=== PATIENT | male | born 1940 | race Caucasian/White ===

== ENCOUNTER → 2018-11-15 | Outpatient (CLI) | payer MEDICARE, OTHER ==
--- NOTE | 2018-11-15 16:47 | Diagnostic Imaging Report ---
PROCEDURE: MRI lumbar spine. TECHNIQUE: Multiplanar, multisequence MRI of the lumbar spine was performed without contrast. INDICATION: Chronic low back pain with recent increase in severity. COMPARISON: There is no previous study available at this time for comparison. FINDINGS: Lumbar spinal curvature and alignment are unremarkable. Vertebral body heights and disc spaces are maintained, although there has been an L4-L5 discectomy with posterior fusion at L4-L5 on the left. Conus medullaris is unremarkable at the L1 level. There is mild bulging of the L1-L2 disc. At L2-L3, there is diffuse disc bulging which is eccentric toward the right. This results in mild neuroforaminal stenosis, greater on the right. At L3-L4, there is also disc bulging which is eccentric toward the right resulting in mild left and moderate right neuroforaminal stenosis. At the L4-L5 level, disc bulging and endplate spurring result in moderate bilateral neuroforaminal stenosis. There is mild disc bulging at L5-S1 without significant stenosis. Note is made of dominant cystic structure which is partially visualized in the left retroperitoneum. This may represent dominant renal cyst. IMPRESSION: 1. Multilevel neuroforaminal stenoses, greater on the right, without significant spinal stenosis identified. L4-L5 discectomy and posterior fusion are noted. 2. There is a dominant cystic structure in the left retroperitoneum which may be renal in nature. Clinical correlation would be of use. Consideration could be given to ultrasonography for confirmation. Dictated by: Dictated on workstation # [id number]
== END ==
LOC: RAD 15:24
PROVIDERS: ATTEND Orthopaedic Surgery
DX: M48.061 Spinal stenosis, lumbar region without neurogenic claudication (principal); Z98.1 Arthrodesis status
CPT/HCPCS: 72148

== ENCOUNTER 2019-08-10 02:36 | Inpatient (IN) | payer MEDICARE, OTHER ==
[~2019-08-10] VITALS: Ht 177.8 cm; Wt 90.7 kg
--- OUTSIDE RECORDS SUMMARY | 2019-08-10 02:42 | XMS REPORT ---
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 Nov Active 162675371 Problem Thrombocytopenia, primary D69.49 Aug, A ctive 704190261 Problem Chronic a-fib I48.2 Active 932501 04 Problem Essential hypertension I10 Active 36620651 ALLERGIES Substance Reaction Event Type Date Status Amoxicillin rash Drug Allergy May, Active ENCOUNTERS Encounter Location Date Diagnosis [address] [address] Sep, Other abnormal glucose R73.09 ; Chronic a-fib I48.2 ; Essential hypertension I10 ; Hyperlipidemia E78.5 and 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 [facility] [address] [facility] [id number] [address] [place] [address] Sep, Chronic a-fib I48.2 [facility] [address] [place] [address] Aug, Viral gastroenteritis A08.4 and Chronic fatigue R53.[address] [address] July, [place] [address] [place] [address] July, [address] [address] July, Generalized weakness R53.1 and Toenail fungus B35.1 [facility] [place] [address] [place] [address] Jun, Dark urine R82.998 ; Chronic bilateral low back pain without sciatica M54.5 ; Essential hypertension I10 and Chronic fatigue R53.82 [facility] [address] [id number] [address] [place] [address] May, [facility] [place] [address] [place] [address] May, Generalized weakness R53.1 and Fall, initial encounter [id number].XXXA [facility] [place] [address] [place] [address] May, [facility] [place] [address] [place] [address] May, Follow-up exam Z09 and Generalized weakness R53.1 [facility] [place] [address] [place] [address] May, [facility] [place] [address] [place] [address] May, [facility] [place] [address] [place] [address] Apr, [facility] [place] [address] [place] [address] Apr, [facility] [address] [id number] [address] [place] [address] Apr, [facility] [address] [id number] [address] [place] [address] Feb, [facility] [address] [id number] [address] [place] [phone] Jan, [facility] [address] [facility] [id number] [address] [place] [address] Nov, IMMUNIZATIONS No Known Immunizations SOCIAL HISTORY Never Assessed REASON FOR VISIT Home visit PLAN OF CARE Activity Details Follow Up prn Reason: VITAL SIGNS Height 70 in 2018-05-24 Heart Rate 85 bpm 2018-05-24 Oximetry 97 % 2018-05-24 Blood pressure systolic 120 mmHg 2018-05-24 Blood pressure diastolic 82 mmHg 2018-05-24 MEDICATIONS Medication Instructions Dosage Frequency Start Date End Date Duration S tatus Metoprolol Tartrate 50 MG Orally Twice a day 1 tablet with food 12h 30 days Active Cardura 4 MG Orally Once a day 1 tablet 24h May, 30 day(s) Active Digoxin 125 MCG Orally Once a day 1 tablet 24h 30 da ys Active Clopidogrel Bisulfate 75 MG Orally Once a day 1 tablet 24h 30 day(s) Active Aspirin Adult Low Dose 81 MG Orally Once a day 1 tablet 24h 30 days Active Verapamil HCl 80 MG Orally 2 times a day 1/2 tablet 12h 30 days Active RESULTS No Results PROCEDURES Procedure Date Ordered Result Body Site [facility] VISIT ESTABLISHED PATIENT May 24, 2018 INSTRUCTIONS MEDICATIONS ADMINISTERED No Known Medications MEDICAL (GENERAL) HISTORY Type Description Date Medical History Chronic a-fib Medical History Essential hypertension Medical History Situational depression Medical History Hyperlipidemia Medical History Chronic low back pain withou t sciatica, unspecified back pain laterality Medical History Thrombocytopenia Surgical History tonsillectomy Surgical History lumbar fusion
--- OUTSIDE RECORDS SUMMARY | 2019-08-10 02:42 | XMS REPORT ---
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 Nov Active 521424863 Problem Thrombocytopenia, primary D69.49 13 Aug, 2017 A ctive 985073139 Problem Chronic a-fib I48.2 Active 400916 04 Problem Essential hypertension I10 Active 31137409 ALLERGIES No Information ENCOUNTERS Encounter Location Date Diagnosis [address] [address] Nov, Essential hypertension I10 and Chronic a-fib I48.[address] [address] Oct, Essential hypertension I10 [address] [address] Sep, Other abnormal glucose R73.09 ; Chronic a-fib I48.2 ; Essential hypertension I10 ; Hyperlipidemia E78.5 and 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 [facility] [id number] [place] [address] Sep, Chronic a-fib I48.[address] [address] Aug, Viral gastroenteritis A08.4 and Chronic fatigue R53.82 [place] [id number] [place] [address] July, [facility] [place] [id number] [place] [address] July, [facility] [place] [id number] [place] [address] July, Generalized weakness R53.1 and Toenail fungus B35.1 [facility] [place] [id number] [place] [address] Jun, Dark urine R82.998 ; Chronic bilateral low back pain without sciatica M54.5 ; Essential hypertension I10 and Chronic fatigue R53.82 [facility] [address] [address] May, [facility] [place] [id number] [place] [address] May, Generalized weakness R53.1 and Fall, initial encounter W19.XXXA [facility] [place] [id number] [place] [address] May, [facility] [place] [id number] [place] [address] May, Follow-up exam Z09 and Generalized weakness R53.1 [facility] [place] [id number] [place] [address] May, [facility] [place] [id number] [place] [address] May, [facility] [place] [id number] [place] [address] Apr, [facility] [place] [id number] [place] [address] Apr, [facility] [address] [address] Apr, [facility] [address] [address] Feb, [facility] [address] [address] Jan, [facility] [address] [facility] [id number] [place] [address] Nov, IMMUNIZATIONS No Known Immunizations SOCIAL HISTORY Never Assessed REASON FOR VISIT PLAN OF CARE VITAL SIGNS MEDICATIONS Medication Instructions Dosage Frequency Start Date End Date Duration S marielena Verapamil HCl 80 MG Orally 2 times a day 1/2 tablet 12h 30 days Active RESULTS No Results PROCEDURES No Known procedures INSTRUCTIONS MEDICATIONS ADMINISTERED No Known Medications MEDICAL (GENERAL) HISTORY Type Description Date Medical History Chronic a-fib Medical History Essential hypertension Medical History Situational depression Medical History Hyperlipidemia Medical History Chronic low back pain withou t sciatica, unspecified back pain laterality Medical History Thrombocytopenia Surgical History tonsillectomy Surgical History lumbar fusion
--- OUTSIDE RECORDS SUMMARY | 2019-08-10 02:43 | XMS REPORT | Continuity of Care Document ---
Author Organization Unknown Address Unknown Phone Unavailable Allergies Active Description Code Type Severity Reaction Onset Reported/Identified Relationship to Patient Clinical Status Yes AMOXICILLIN MODERATE DERMATOLOGICAL - CASSIE Yes AMOXICILLIN MODERATE MODERATE Medications Medication Packaging Start Date St op Date Route Dosage Sig OXYCODONE 5MG/APAP 325MG TAB(PERCOCET-5) TAB 10/11/2017 11/10/2017 PRN Q6H HYDRALAZINE TAB 25 MG (APRESOLINE) MG 10/11/2017 10/18/2017 PRN Q4H ALBUTEROL INHALER MDI 8 GM (VENTOLIN HFA) PUFF(S) 10/11/2017 11/10/2017 PRN QID Docusate sodium 100mg oral capsule (COLACE ) MG 10/11/2017 11/10/2017 BID&0800,2000 METOPROLOL TAB 50 MG (LOPRESSOR) MG 10/11/2017 11/10/2017 BID&0800,2000 VERAPAMIL TAB 80 MG (CALAN) MG 10/11/2017 10/18/2017 Q8H&0600,1400,2200 DOXAZOSIN TAB 2 MG (CARDURA) MG 10/11/2017 10/18/2017 Daily&0900 VERAPAMIL TAB 80 MG (CALAN) MG 10/11/2017 11/10/2017 Q8H&0600,1400,2200 Lidocaine adhesive patch 5% (Lidoderm) PATCH 10/12/2017 10/21/2017 Daily&0900 CLOPIDOGREL TAB 75 MG (PLAVIX) MG 10/12/2017 11/10/2017 Daily&0900 DOXAZOSIN TAB 2 MG (CARDURA) MG 10/12/2017 11/10/2017 Daily&0900 ASPIRIN ENTERIC COATED TAB 8 1 MG (BABY ASPIRIN EC) MG 10/12/2017 11/10/2017 Daily&0900 DIGOXIN TAB 0.125 MG (LANOXIN) MG 10/12/2017 10/18/2017 Daily&0900 LACTULOSE SYRUP LIQ 20 GM/30 CC (CHRONULAC SYRUP) GM 10/14/2017 11/12/2017 Daily&0900 VERAPAMIL TAB 80 MG (CALAN) MG 10/14/2017 11/13/2017 Q8H&0600,1400,2200 OXYCODONE 5MG/APAP 325MG TAB(PERCOCET-5) TAB 10/14/2017 11/13/2017 PRN Q6H ALBUTEROL INHALER MDI 8 GM (VENTOLIN HFA) PUFF(S) 10/14/2017 10/24/2017 PRN QID Docusate sodium 100mg oral capsule (COLACE ) MG 10/14/2017 11/13/2017 BID&08,1999 METOPROLOL TAB 50 MG (LOPRESSOR) MG 10/14/2017 11/13/2017 BID&08,1999 CLOPIDOGREL TAB 75 MG (PLAVIX) MG 10/15/2017 11/13/2017 Daily&0900 DOXAZOSIN TAB 2 MG (CARDURA) MG 10/15/2017 11/13/2017 Daily&0900 ASPIRIN ENTERIC COATED TAB 8 1 MG (BABY ASPIRIN EC) MG 10/15/2017 11/13/2017 Daily&0900 DIGOXIN TAB 0.125 MG (LANOXIN) MG 10/15/2017 10/21/2017 Daily&0900 ACETAMINOPHEN ORAL TABLET 325mg(Tylenol) MG 10/17/2017 11/16/2017 PRN Q6H LACTATED RINGERS 500CC IV BAG INJ ml 10/18/2017 10/25/2017 CONTINUOUSEVERY 0 Hour OXYCODONE 5MG/APAP 325MG TAB(PERCOCET-5) TAB 10/18/2017 11/17/2017 PRN Q6H ALBUTEROL INHALER MDI 8 GM (VENTOLIN HFA) PUFF(S) 10/18/2017 10/28/2017 PRN QID Normal SALINE 0.9 % (NS 100cc) (plain bag) ml 10/18/2017 10/18/2017 ONCE&1841 IPRATROPIUM/ALBUTEROL INH SO LN (DUO-NEB INH SOLN) MLS 10/18/2017 10/18/2017 ONCE&1855 DIGOXIN inj 250mcg/cc 2cc amp (Lanoxin) MCG 10/18/2017 10/18/2017 ONCE&1857 NORMAL SALINE 1000CC IV BAG INJ 0.9 % (NS 1000CC IV BAG) ml 10/18/2017 11/02/2017 CONTINUOUSEVERY 0 Hour CLOPIDOGREL TAB 75 MG (PLAVIX) MG 10/18/2017 11/16/2017 Daily&1999 Docusate sodium 100mg oral capsule (COLACE ) MG 10/18/2017 11/17/2017 BID&0800,1999 NORMAL SALINE 250CC IV BAG I NJ 0.9 % (NS 250CC IV BAG) ml 10/18/2017 10/18/2017 ONCE&1999 METOPROLOL TAB 50 MG (LOPRESSOR) MG 10/18/2017 10/25/2017 BID&0800,1999 METOPROLOL TAB 50 MG (LOPRESSOR) MG 10/18/2017 10/18/2017 ONCE&2020 LACTOBACILLUS BULGARIS TAB (LACTINEX BULGA RIS) tab 10/18/2017 10/28/2017 QID&0800,1200,1700,2200 ACETAMINOPHEN ORAL TABLET 325mg(Tylenol) MG 10/18/2017 11/17/2017 PRN EVERY 4 Hour ACETAMINOPHEN SUPPOS SUP 650 MG (TYLENOL) MG 10/18/2017 10/25/2017 PRN Q6H VERAPAMIL TAB 80 MG (CALAN) MG 10/19/2017 11/17/2017 Q8H&0600,1400,2200 METOPROLOL TAB 50 MG (LOPRESSOR) MG 10/19/2017 10/25/2017 BID&0800,1999 Normal SALINE 0.9 % (NS 100cc) (plain bag) ml 10/19/2017 10/25/2017 BID&0800,1999 METOPROLOL TAB 50 MG (LOPRESSOR) MG 10/19/2017 10/19/2017 ONCE&0800,1999 DOXAZOSIN TAB 2 MG (CARDURA) MG 10/19/2017 11/17/2017 Daily&0900 ASPIRIN ENTERIC COATED TAB 8 1 MG (BABY ASPIRIN EC) MG 10/19/2017 11/17/2017 Daily&0900 DIGOXIN TAB 0.25 MG (LANOXIN) MG 10/19/2017 10/25/2017 Daily&0900 DIGOXIN TAB 0.125 MG (LANOXIN) MG 10/19/2017 10/25/2017 Daily&0900 PANTOPRAZOLE VIAL INJ 40 MG (PROTONIX IV) MG 10/19/2017 10/28/2017 Daily&0900 IBUPROFEN TAB 400 MG (MOTRIN) MG 10/19/2017 10/26/2017 PRN Q6H DILTIAZEM BOLUS VIAL INJ 25 MG/5CC (CARDIZEM BOLUS VIAL) MG 10/19/2017 10/19/2017 ONCE&1515 Normal SALINE 0.9 % (NS 100cc) (plain bag) ml 10/19/2017 10/26/2017 CONTINUOUSEVERY 0 Hour NORMAL SALINE 250CC IV BAG I NJ 0.9 % (NS 250CC IV BAG) ml 10/21/2017 10/27/2017 Q12H&1000,2200 OXYCODONE 5MG/APAP 325MG TAB(PERCOCET-5) TAB 10/21/2017 10/28/2017 PRN Q6H ACETAMINOPHEN ORAL TABLET 325mg(Tylenol) MG 10/21/2017 11/20/2017 PRN EVERY 4 Hour IBUPROFEN TAB 400 MG (MOTRIN) MG 10/21/2017 10/28/2017 PRN Q4H VERAPAMIL TAB 80 MG (CALAN) MG 10/21/2017 10/28/2017 Q8H&0600,1400,2200 LACTOBACILLUS BULGARIS TAB (LACTINEX BULGA RIS) tab 10/21/2017 10/31/2017 QID&0800,1200,1700,2200 ALBUTEROL INHALER MDI 8 GM (VENTOLIN HFA) PUFF(S) 10/21/2017 10/31/2017 PRN QID CLOPIDOGREL TAB 75 MG (PLAVIX) MG 10/21/2017 10/27/2017 Daily&1999 Docusate sodium 100mg oral capsule (COLACE ) MG 10/21/2017 11/20/2017 BID&0800,2000 METOPROLOL TAB 50 MG (LOPRESSOR) MG 10/21/2017 10/28/2017 BID&0800,2000 VANCOMYCIN VIAL INJ 750 MG (VANCOCIN VIAL) MG 10/21/2017 10/28/2017 Q12H&1000,2200 DOXAZOSIN TAB 2 MG (CARDURA) MG 10/22/2017 10/28/2017 Daily&0900 ASPIRIN ENTERIC COATED TAB 8 1 MG (BABY ASPIRIN EC) MG 10/22/2017 10/28/2017 Daily&0900 PANTOPRAZOLE TAB 40 MG (PROTONIX) MG 10/22/2017 10/28/2017 Daily&0900 DIGOXIN TAB 0.25 MG (LANOXIN) MG 10/22/2017 10/28/2017 Daily&0900 NORMAL SALINE 250CC IV BAG I NJ 0.9 % (NS 250CC IV BAG) ml 10/22/2017 10/28/2017 BID&1030,2230 METOPROLOL TAB 50 MG (LOPRESSOR) MG 10/26/2017 11/02/2017 BID&0800,2000 CLOPIDOGREL TAB 75 MG (PLAVIX) MG 10/27/2017 11/02/2017 Daily&0900 DIGOXIN TAB 0.125 MG (LANOXIN) MG 10/27/2017 11/02/2017 Daily&0900 VERAPAMIL TAB 80 MG (CALAN) Dose(s) 10/28/2017 11/04/2017 Q8H&0600,1400,2200 NORMAL SALINE 1000CC IV BAG INJ 0.9 % (NS 1000CC IV BAG) ml 04/12/2018 04/12/2018 ONCE&1445 ONDANSETRON VIAL INJ 4 MG/2CC (ZOFRAN 2CC VIAL) MG 04/12/2018 04/12/2018 PRN ONCE THIAMINE VIAL 2CC INJ 100 MG /CC (VIT B1 2CC VIAL) MG 04/12/2018 04/12/2018 ONCE&1730 CEFTRIAXONE PREMIX IV BAG IV 1 GM/50CC (ROCEPHIN PREMIX IV BAG) GM 04/12/2018 04/12/2018 ONCE&1730 ACETAMINOPHEN ORAL TABLET 325mg(Tylenol) MG 04/12/2018 05/12/2018 PRN EVERY 6 Hour MULTIPLE VITAMIN INFUSION IN J (MVI ADULT 2 VIAL KIT) VIALS 04/12/2018 04/12/2018 ONCE&1738 ALPRAZOLAM TAB 0.25 MG (XANAX) MG 04/12/2018 04/22/2018 PRN Q6H HALOPERIDOL VIAL INJ 5 MG/CC (HALDOL 1CC V IAL) MG 04/12/2018 04/19/2018 PRN Q4H CLONIDINE TAB 0.1 MG (CATAPRES) MG 04/12/2018 04/19/2018 PRN Q6H ACETAMINOPHEN SUPPOS SUP 650 MG (TYLENOL) MG 04/12/2018 04/19/2018 PRN Q4H ONDANSETRON VIAL INJ 4 MG/2CC (ZOFRAN 2CC VIAL) MG 04/12/2018 04/19/2018 PRN Q4H CALCIUM CARBONATE TAB 500 MG (TUMS) MG 04/12/2018 04/19/2018 PRN Q6H DIPHENHYDRAMINE CAP 25 MG (BENADRYL) MG 04/12/2018 04/19/2018 PRN Q6H PROMETHAZINE VIAL INJ 25 MG/CC (PHENERGAN VIAL) MG 04/12/2018 04/22/2018 PRN Q6H HYDROCODONE/APAP 5MG/325MG T AB 5 MG/325MG (PATRICK-TAB 5/325) TAB 04/12/2018 04/22/2018 PRN Q6H ALUM/MAG/SIMETH 30CC LIQ (MYLANTA PLUS) cc 04/12/2018 04/22/2018 PRN Q4H LORAZEPAM TAB 1 MG (ATIVAN) MG 04/12/2018 04/12/2018 PRN ONCE Metoprolol IV soln 5mg/5cc vial (Lopressor ) MG 04/12/2018 04/12/2018 ONCE&1923 Docusate sodium 100mg oral capsule (COLACE ) 04/12/2018 05/12/2018 PRN BID METOPROLOL TAB 50 MG (LOPRESSOR) MG 04/12/2018 04/19/2018 BID&0800,2000 VERAPAMIL TAB 80 MG (CALAN) MG 04/12/2018 04/19/2018 BID&0800,2000 LACTULOSE SYRUP LIQ 20 GM/30 CC (CHRONULAC SYRUP) GM 04/12/2018 05/12/2018 BID&0800,2000 MELATONIN TAB 3 MG (MELATONIN) MG 04/12/2018 04/18/2018 QHS&2100 DOXAZOSIN TAB 8 MG (CARDURA) MG 04/13/2018 05/12/2018 Daily&0900 BISACODYL TAB 5 MG (DULCOLAX) MG 04/13/2018 04/19/2018 PRN Daily DULOXETINE CAP 30 MG (CYMBALTA) MG 04/13/2018 04/19/2018 Daily&0900 PANTOPRAZOLE TAB 40 MG (PROTONIX) MG 04/13/2018 04/19/2018 Daily&0900 POLYETHYLENE GLYCOL POWDER U D PWD (MIRALAX 17GM UNIT DOSE PAKS) gm 04/13/2018 04/19/2018 Daily&0900 MultiVits (Thera M Plus) (mu zstjhz-azxk-gpksekr) oral tablet TAB 04/13/2018 05/12/2018 Daily&0900 THIAMINE TAB 100 MG (VITAMIN B1) MG 04/13/2018 04/15/2018 Daily&0900 BISACODYL SUPPOS 10 MG (DULCOLAX SUPPOS) MG 04/13/2018 04/19/2018 PRN Daily CEFTRIAXONE PREMIX IV BAG IV 1 GM/50CC (ROCEPHIN PREMIX IV BAG) GM 04/13/2018 04/19/2018 Daily&0900 MILK OF ELISA LIQ ml 04/13/2018 05/12/2018 PRN Daily DIGOXIN TAB 0.125 MG (LANOXIN) MG 04/13/2018 04/19/2018 Daily&0900 NORMAL SALINE 250CC IV BAG I NJ 0.9 % (NS 250CC IV BAG) ml 04/13/2018 04/19/2018 Q12H&1100,2300 DOXAZOSIN TAB 2 MG (CARDURA) MG 04/13/2018 04/19/2018 Daily&2100 SMZ/TMP DS TAB (SEPTRA DS) (Bactrim DS) TAB 04/14/2018 04/20/2018 BID&0800,2000 MultiVits (Thera M Plus) (mu ucbdpp-zmhg-sxnxmum) oral tablet TAB 04/14/2018 05/13/2018 Daily&0900 OXYCODONE 5MG/APAP 325MG TAB(PERCOCET-5) Dose(s) 04/14/2018 04/21/2018 PRN Q6H Docusate sodium 100mg oral capsule (COLACE ) 04/14/2018 05/14/2018 BID&0800,2000 ACETAMINOPHEN TAB 500 MG (TYLENOL) MG 04/14/2018 05/14/2018 PRN BID CLOPIDOGREL TAB 75 MG (PLAVIX) MG 04/17/2018 04/17/2018 Daily&0900 ASPIRIN ENTERIC COATED TAB 8 1 MG (BABY ASPIRIN EC) MG 04/17/2018 04/17/2018 Daily&0900 CEPHALEXIN CAP 500 MG (KEFLEX) MG 07/24/2018 07/24/2018 ONCE&0150 CITRATE OF ELISA LIQ ml 11/18/2018 11/18/2018 ONCE&1751 ENEMA (FLEET'S) [employer] ADULT APPLICATION 11/18/2018 11/18/2018 ONCE&1751 NORMAL SALINE 1000CC IV BAG INJ 0.9 % (NS 1000CC IV BAG) ml 03/08/2019 03/08/2019 ONCE&1516 THIAMINE VIAL 2CC INJ 100 MG /CC (VIT B1 2CC VIAL) MG 03/09/2019 03/09/2019 ONCE&1644 LORAZEPAM TAB 1 MG (ATIVAN) MG 03/09/2019 03/09/2019 ONCE&1652 ACETAMINOPHEN ORAL TABLET 325mg(Tylenol) MG 03/09/2019 04/08/2019 PRN EVERY 6 Hour LORAZEPAM per Detox Protocol B MG 03/09/2019 03/09/2019 PRN ONCE MULTIPLE VITAMIN INFUSION IN J (MVI ADULT 2 VIAL KIT) VIALS 03/09/2019 03/09/2019 ONCE&1915 Docusate sodium 100mg oral capsule (COLACE ) MG 03/09/2019 04/08/2019 PRN BID PANTOPRAZOLE TAB 40 MG (PROTONIX) MG 03/09/2019 03/16/2019 BID&0800,2000 MELATONIN TAB 3 MG (MELATONIN) MG 03/09/2019 04/07/2019 PRN QHS HALOPERIDOL VIAL INJ 5 MG/CC (HALDOL 1CC V IAL) MG 03/09/2019 03/16/2019 PRN Q4H ALUM/MAG/SIMETH 30CC LIQ (MYLANTA PLUS) cc 03/09/2019 03/19/2019 PRN Q4H CLONIDINE TAB 0.1 MG (CATAPRES) MG 03/09/2019 03/16/2019 PRN Q6H ONDANSETRON VIAL INJ 4 MG/2CC (ZOFRAN 2CC VIAL) MG 03/09/2019 03/16/2019 PRN Q6H CALCIUM CARBONATE TAB 500 MG (TUMS) MG 03/09/2019 03/16/2019 PRN Q6H DIPHENHYDRAMINE CAP 25 MG (BENADRYL) MG 03/09/2019 03/16/2019 PRN Q6H PROMETHAZINE VIAL INJ 25 MG/CC (PHENERGAN VIAL) MG 03/09/2019 03/19/2019 PRN Q6H LORAZEPAM per Detox Protocol B MG 03/10/2019 03/17/2019 PRN EVERY 1 Hour METOPROLOL TAB 50 MG (LOPRESSOR) MG 03/10/2019 03/16/2019 BID&0800,2000 PANTOPRAZOLE TAB 40 MG (PROTONIX) MG 03/10/2019 03/16/2019 BID&0800,2000 POLYETHYLENE GLYCOL POWDER U D PWD (MIRALAX 17GM UNIT DOSE PAKS) gm 03/10/2019 03/16/2019 Daily&0900 VERAPAMIL TAB 80 MG (CALAN) MG 03/10/2019 03/16/2019 Daily&0900 THIAMINE TAB 100 MG (VITAMIN B1) MG 03/10/2019 03/12/2019 Daily&0900 BISACODYL SUPPOS 10 MG (DULCOLAX SUPPOS) MG 03/10/2019 03/16/2019 PRN Daily Normal SALINE 0.9 % (NS 100cc) (plain bag) ml 03/10/2019 03/13/2019 CONTINUOUSEVERY 0 Hour GABAPENTIN CAP 300 MG (NEURONTIN) Dose(s) 03/10/2019 03/10/2019 ONCE&1128 NORMAL SALINE 1000CC IV BAG INJ 0.9 % (NS 1000CC IV BAG) ml 03/10/2019 03/25/2019 CONTINUOUSEVERY 0 Hour LORAZEPAM per Detox Protocol B MG 03/10/2019 03/13/2019 Q6H&0600,1200,1800,2359 MULTIPLE VITAMIN INFUSION IN J (MVI ADULT 2 VIAL KIT) VIALS 03/10/2019 03/16/2019 QPM&2000 ENOXAPARIN SYRINGE INJ 40 MG (LOVENOX SYRI NGE) MG 03/10/2019 03/19/2019 QHS&2100 CLOPIDOGREL TAB 75 MG (PLAVIX) MG 03/11/2019 03/16/2019 Daily&0900 LACTOBACILLUS BULGARIS TAB (LACTINEX BULGA RIS) 03/12/2019 03/22/2019 QID&0800,1200,1700,2200 APIXABAN TAB 5 MG (ELIQUIS) MG 03/13/2019 03/19/2019 BID&0800,2000 AMLODIPINE TAB 5 MG (NORVASC) MG 03/13/2019 03/13/2019 ONCE&1006 ACETAMINOPHEN ORAL TABLET 325mg(Tylenol) MG 03/13/2019 04/12/2019 PRN EVERY 6 Hour ALUM/MAG/SIMETH 30CC LIQ (MYLANTA PLUS) cc 03/13/2019 03/23/2019 PRN Q4H POLYETHYLENE GLYCOL POWDER U D PWD (MIRALAX 17GM UNIT DOSE PAKS) gm 03/13/2019 03/23/2019 PRN Q3H CALMOSEPTINE OINT TUBE (RISAMINE OINT) hudson 03/13/2019 03/20/2019 PRN QID LOPERAMIDE CAP 2 MG (IMMODIUM) MG 03/13/2019 03/20/2019 PRN QID METOPROLOL TAB 50 MG (LOPRESSOR) MG 03/13/2019 04/12/2019 BID&0800,2000 GABAPENTIN CAP 300 MG (NEURONTIN) MG 03/13/2019 04/11/2019 QPM&2000 LACTULOSE SYRUP LIQ 20 GM/30 CC (CHRONULAC SYRUP) GM 03/13/2019 04/12/2019 BID&0800,2000 APIXABAN TAB 5 MG (ELIQUIS) MG 03/13/2019 04/12/2019 BID&0800,2000 CLOPIDOGREL TAB 75 MG (PLAVIX) MG 03/14/2019 04/12/2019 QAM&0800 VERAPAMIL TAB 80 MG (CALAN) MG 03/14/2019 04/12/2019 QAM&0800 DIGOXIN TAB 0.125 MG (LANOXIN) MCG 03/14/2019 04/12/2019 QAM&0800 BISACODYL SUPPOS 10 MG (DULCOLAX SUPPOS) MG 03/14/2019 03/20/2019 PRN Daily TAMSULOSIN CAP 0.4 MG (FLOMAX) MG 03/14/2019 04/12/2019 QPM&1800 VENLAFAXINE XR CAP 75 MG (EFFEXOR XR) MG 03/15/2019 04/13/2019 Daily&0900 FOLIC ACID TAB 1 MG MG 03/15/2019 04/13/2019 Daily&0900 Jyfqypmo-gwlb-fcy-folic acid ) tab,CHEWable (Centrum) TAB 03/15/2019 04/13/2019 Daily&0900 MIRTAZAPINE TAB 15 MG (REMERON) MG 03/15/2019 04/13/2019 QHS&2100 AMLODIPINE TAB 5 MG (NORVASC) MG 03/16/2019 04/14/2019 Daily&0900 VENLAFAXINE XR CAP 75 MG (EFFEXOR XR) MG 03/17/2019 04/15/2019 Daily&0900 FINASTERIDE TAB 5 MG (PROSCAR) MG 03/18/2019 03/18/2019 ONCE&1021 Flu vacc [id number] 6mos up(P F)) IM syringe QUAD (Fluarix) ML 03/18/2019 03/18/2019 ONCE&205 PNEUMONIA VACCINE INJ (PREVNAR-13) ml 03/18/2019 03/18/2019 ONCE&2049 MELATONIN TAB 3 MG (MELATONIN) MG 03/18/2019 04/16/2019 QHS&2100 FINASTERIDE TAB 5 MG (PROSCAR) MG 03/19/2019 04/17/2019 Daily&0900 APIXABAN TAB 5 MG (ELIQUIS) MG 03/21/2019 04/20/2019 BID&0800,2000 Metoprolol IV soln 5mg/5cc vial (Lopressor ) MG 08/09/2019 08/09/2019 ONCE&1047 NORMAL SALINE 1000CC IV BAG INJ 0.9 % (NS 1000CC IV BAG) ml 08/09/2019 08/09/2019 ONCE&1047 METOPROLOL TAB 25 MG (LOPRESSOR) MG 08/09/2019 08/09/2019 ONCE&1113 IPRATROPIUM/ALBUTEROL INH SO LN (DUO-NEB INH SOLN) MLS 08/09/2019 08/09/2019 ONCE&1113 DIGOXIN TAB 125 MCG (LANOXIN) MCG 08/09/2019 08/09/2019 ONCE&1113 Problems Date Dx Coded Attending Type Code Diagnosis Diagnosed By 10/17/2017 Phyllis Leiva 285.1 ACUTE POSTHEMORRHAGIC ANEMIA 10/17/2017 Phyllis Leiva 338.2 CHRONIC PAIN 10/17/2017 Phyllis Leiva 401.0 10/17/2017 Phyllis Leiva 427.32 10/17/2017 Phyllis Leiva 585.9 CHRONIC KIDNEY DISEASE, UNSPECIFIED 10/17/2017 Phyllis Leiva 719.45 PAIN IN JOINT INVOLVING PELVIC REGION AND THIGH 10/17/2017 Phyllis Leiva A 780.79 10/17/2017 Phyllis Leiva D62 ACUTE POSTHEMORRHAGIC ANEMIA 10/17/2017 Phyllis Leiva G89.29 OTHER CHRONIC PAIN 10/17/2017 Phyllis Leiva I10 ESSENTIAL (PRIMARY) HYPERTENSION 10/17/2017 Phyllis Leiva I48.2 CHRONIC ATRIAL FIBRILLATION 10/17/2017 Phyllis Leiva M25.552 PAIN IN LEFT HIP 10/17/2017 Leiva, Phyllis W N18.9 CHRONIC KIDNEY DISEASE, UNSPECIFIED 10/17/2017 Phyllis Leiva A R53.1 WEAKNESS 10/17/2017 Phyllis Leiva W R53.81 OTHER MALAISE 10/17/2017 Phyllis Leiva W V12.55 PERSONAL HISTORY OF PULMONARY EMBOLISM 10/17/2017 Phyllis Leiva W V45.4 10/17/2017 Phyllis Leiav W 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 10/17/2017 Phyllis Leiva W Z98.1 ARTHRODESIS STATUS 10/18/2017 Phyllis Leiva W 486 PNEUMONIA, ORGANISM UNSPECIFIED 10/18/2017 Phyllis Leiva W I48.9 UNSPECIFIED ATRIAL FIBRILLATION AND ATRIAL FLUTTER 10/18/2017 Phyllis Leiva W J18.9 PNEUMONIA, UNSPECIFIED ORGANISM 10/19/2017 Phyllis Leiva W 486 PNEUMONIA, ORGANISM UNSPECIFIED 10/19/2017 Phyllis Leiva W I48.9 UNSPECIFIED ATRIAL FIBRILLATION AND ATRIAL FLUTTER 10/19/2017 Phyllis Leiva W J18.9 PNEUMONIA, UNSPECIFIED ORGANISM 10/21/2017 Yasmine Leivai W 041.12 10/21/2017 Cali Phyllis W 276.51 10/21/2017 Cali Phyllis W 303.90 10/21/2017 Cali Phyllis W 338.2 CHRONIC PAIN 10/21/2017 Cali Phyllis W 401.0 10/21/2017 Cali Phyllis W 427.31 10/21/2017 Cali Phyllis W 486 PNEUMONIA, ORGANISM UNSPECIFIED 10/21/2017 Cali Phyllis W 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 OBSTRUCTION AND OTHER LOWER URINARY TRACT SYMPTOMS (LUTS) 10/21/2017 Phyllis Leiva A 771.83 10/21/2017 Cali Phyllis W 780.60 10/21/2017 Cali Phyllis W 780.79 OTHER MALAISE AND FATIGUE 10/21/2017 Yasmine Leivai W B95.62 10/21/2017 Cali Phyllis W E86.0 DEHYDRATION 10/21/2017 Cali Phyllis W F10.20 ALCOHOL DEPENDENCE, UNCOMPLICATED 10/21/2017 Yasmine Leivai W G89.29 OTHER CHRONIC PAIN 10/21/2017 Leiva, Phyllis W I10 ESSENTIAL (PRIMARY) HYPERTENSION 10/21/2017 Phyllis Leiva W I48.9 UNSPECIFIED ATRIAL FIBRILLATION AND ATRIAL FLUTTER 10/21/2017 Phyllis Leiva W I48.91 UNSPECIFIED ATRIAL FIBRILLATION 10/21/2017 Phyllis Leiva W J18.9 PNEUMONIA, UNSPECIFIED ORGANISM 10/21/2017 Phyllis Leiva W N40.0 BENIGN PROSTATIC HYPERPLASIA WITHOUT LOWER URINRY TRACT SYMP 10/21/2017 Phyllis Leiva W R50.9 FEVER, UNSPECIFIED 10/21/2017 Phyllis Leiva W R53.81 OTHER MALAISE 10/21/2017 Phyllis Leiva A R78.81 10/28/2017 Phyllis Leiva W 041.12 10/28/2017 Phyllis Leiva W 303.90 OTHER AND UNSPECIFIED ALCOHOL DEPENDENCE, UNSPECIFIED DRINKING BEHAVIOR 10/28/2017 Phyllis Leiva W 401.0 MALIGNANT ESSENTIAL HYPERTENSION 10/28/2017 Phyllis Leiva W 427.31 ATRIAL FIBRILLATION 10/28/2017 Phyllis Leiva W 486 10/28/2017 Phyllis Leiva W 530.81 ESOPHAGEAL REFLUX 10/28/2017 Yasmine Leivai A 771.83 10/28/2017 Cali Phyllis W 780.79 OTHER MALAISE AND FATIGUE 10/28/2017 Phyllis Leiva W 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 10/28/2017 Phyllis Leiva W F10.20 ALCOHOL DEPENDENCE, UNCOMPLICATED 10/28/2017 Phyllis Leiva W I10 ESSENTIAL (PRIMARY) HYPERTENSION 10/28/2017 Phyllis Leiva W I48.91 UNSPECIFIED ATRIAL FIBRILLATION 10/28/2017 Phyllis Leiva W J18.9 PNEUMONIA, UNSPECIFIED ORGANISM 10/28/2017 Phyllis Leiva W K21.9 GASTRO- ESOPHAGEAL REFLUX DISEASE WITHOUT ESOPHAGITIS 10/28/2017 Phyllis Leiva W R53.81 OTHER MALAISE 10/28/2017 Cali Phyllis A R78.81 BACTEREMIA 04/12/2018 Phyllis Leiva W 599.0 URINARY TRACT INFECTION, SITE NOT SPECIFIED 04/12/2018 Phyllis Leiva W N39.0 URINARY TRACT INFECTION, SITE NOT SPECIFIED 04/12/2018 Phyllis Leiva W 427.31 ATRIAL FIBRILLATION 04/12/2018 Phyllis Leiva W 599.0 URINARY TRACT INFECTION, SITE NOT SPECIFIED 04/12/2018 Phyllis Leiva W A41 OTHER SEPSIS 04/12/2018 Phyllis Leiva W 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 04/12/2018 Phyllis Leiva W I48.2 CHRONIC ATRIAL FIBRILLATION 04/12/2018 Phyllis Leiva W N39.0 URINARY TRACT INFECTION, SITE NOT SPECIFIED 04/17/2018 Phyllis Leiva W 038.9 UNSPECIFIED SEPTICEMIA 04/17/2018 Phyllis Leiva W 276.51 04/17/2018 Yasmine Leivai W 287.5 04/17/2018 Phyllis Leiva W 291.81 04/17/2018 Phyllis Leiva W 427.31 ATRIAL FIBRILLATION 04/17/2018 Phyllis Leiva W 599.0 URINARY TRACT INFECTION, SITE NOT SPECIFIED 04/17/2018 Phyllis Leiva W 599.71 04/17/2018 Phyllis Leiva W 600.20 04/17/2018 Yasmine Leivai W 781.99 04/17/2018 Phyllis Leiva W 797 04/17/2018 Phyllis Leiva W A41.9 SEPSIS, UNSPECIFIED ORGANISM 04/17/2018 Phyllis Leiva W D69.6 04/17/2018 Phyllis Leiva W E86.0 DEHYDRATION 04/17/2018 Phyllis Leiva W 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 04/17/2018 Phyllis Leiva W 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, UNCOMPLICATED 04/17/2018 Phyllis Leiva W I48.2 CHRONIC ATRIAL FIBRILLATION 04/17/2018 Phyllis Leiva W N39.0 URINARY TRACT INFECTION, SITE NOT SPECIFIED 04/17/2018 Phyllis Leiva W N40.0 04/17/2018 Phyllis Leiva W R29.6 REPEATED FALLS 04/17/2018 Phyllis Leiva W R31.0 GROSS HEMATURIA 04/17/2018 Phyllis Leiva W R54 AGE- RELATED PHYSICAL DEBILITY 04/17/2018 Phyllis Leiva W V58.69 LONG- TERM (CURRENT) USE OF OTHER MEDICATIONS 04/17/2018 Phyllis Leiva W Z79.899 OTHER SHELTER (CURRENT) DRUG THERAPY 06/08/2018 Reza, Urmila W 303.90 OTHER AND UNSPECIFIED ALCOHOL DEPENDENCE, UNSPECIFIED DRINKING BEHAVIOR 06/08/2018 RezaUrmila W 401.0 06/08/2018 RezaUrmila W 427.32 ATRIAL FLUTTER 06/08/2018 RezaUrmila W 724.2 LUMBAGO 06/08/2018 RezaUrmila W 780.79 06/08/2018 RezaUrmila W 781.2 06/08/2018 RezaUrmila W F10.20 ALCOHOL DEPENDENCE, UNCOMPLICATED 06/08/2018 RezaUrmila W I10 ESSENTIAL (PRIMARY) HYPERTENSION 06/08/2018 Reza, Umrila W I48.2 CHRONIC ATRIAL FIBRILLATION 06/08/2018 RezaUrmila W M54.5 LOW BACK PAIN 06/08/2018 RezaUrmila W R26.89 OTHER ABNORMALITIES OF GAIT AND MOBILITY 06/08/2018 RezaUrmila W R53.1 WEAKNESS 06/08/2018 RezaUrmila W V15.88 PERSONAL HISTORY OF FALL 06/08/2018 Urmila Reza W V45.4 POSTSURGICAL ARTHRODESIS STATUS 06/08/2018 RezaUrmila W Z91.81 HISTORY OF FALLING 06/08/2018 Urmila Reza W Z98.1 ARTHRODESIS STATUS 07/24/2018 JEANETTE SANTOYO W 784.7 EPISTAXIS 07/24/2018 JEANETTE SANTOYO W R04.0 EPISTAXIS 07/26/2018 Marcellus Taylor V58.30 ENCOUNTER FOR CHANGE OR REMOVAL OF NONSURGICAL WOUND DRESSING 07/26/2018 Marcellus Taylor W Z48.00 ENCOUNTER FOR CHANGE OR REMOVAL OF NONSURG WOUND DRESSING 07/27/2018 LEISURE, LYNIETA W 784.7 EPISTAXIS 07/27/2018 LEISURE, LYNIETA W R04.0 EPISTAXIS 07/27/2018 LEISURE, LYNIETA W 784.7 EPISTAXIS 07/27/2018 LEISURE, LYNIETA W R04.0 EPISTAXIS 07/27/2018 LEISURE, LYNIETA W 784.7 EPISTAXIS 07/27/2018 LEISURE, LYNIETA W R04.0 EPISTAXIS 11/18/2018 Marcellus Taylor 564.00 CONSTIPATION, UNSPECIFIED 11/18/2018 Marcellus Taylor 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 11/18/2018 Marcellus Taylor D62 ACUTE POSTHEMORRHAGIC ANEMIA 11/18/2018 Marcellus Taylor D69.6 THROMBOCYTOPENIA, UNSPECIFIED 11/18/2018 Marcellus Taylor E86.0 DEHYDRATION 11/18/2018 Marcellus Taylor F10.20 ALCOHOL DEPENDENCE, UNCOM 11/18/2018 Marcellus Taylor 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, UNCOMPLICATED 11/18/2018 Marcellus Taylor G89.29 OTHER CHRONIC PAIN 11/18/2018 Marcellus Taylor I10 ESSENTIAL (PRIMARY) HYPERTENSION 11/18/2018 Marcellus Taylor I48.2 CHRONIC ATRIAL FIBRILLATION 11/18/2018 Marcellus Taylor I48.91 UNSPECIFIED ATRIAL FIBRILLATION 11/18/2018 Marcellus Taylor J18.9 PNEUMONIA, UNSPECIFIED ORGANISM 11/18/2018 Marcellus Taylor K59.00 CONSTIPATION, UNSPECIFIED 11/18/2018 Marcellus Taylor M54.5 LOW BACK PAIN 11/18/2018 Marcellus Taylor N39.0 URINARY TRACT INFECTION, SITE NOT SPECIFIED 11/18/2018 Marcellus Taylor N40.0 BENIGN PROSTATIC HYPERPLASIA WITHOUT LOWER URINRY TRACT SYMP 11/18/2018 Marcellus Taylor R04.0 EPISTAXIS 11/18/2018 Marcellus Taylor R29.6 REPEATED FALLS 11/18/2018 Marcellus Taylor R31.0 GROSS HEMATURIA 11/18/2018 Marcellus Taylor R50.9 FEVER, UNSPECIFIED 11/18/2018 Marcellus Taylor R53.1 WEAKNESS 11/18/2018 Marcellus Taylor R53.81 OTHER MALAISE 11/18/2018 Marcellus Taylor 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 11/18/2018 Marcellus Taylor Z91.81 HISTORY OF FALLING 11/18/2018 Marcellus Taylor Z98.1 ARTHRODESIS STATUS 12/05/2018 TYRONE SMITH DO Ot K66 .8 OTHER SPECIFIED DISORDERS OF PERITONEUM 12/06/2018 TYRONE SMITH DO Ot K66 .8 OTHER SPECIFIED DISORDERS OF PERITONEUM 12/07/2018 TYRONE SMITH DO Ot M48.061 SPINAL STENOSIS, LUMBAR REGION WITHOUT N 12/07/2018 TYRONE SMITH DO Ot Z98 .1 ARTHRODESIS STATUS 12/21/2018 TYRONE SMITH DO Ot K66 .8 OTHER SPECIFIED DISORDERS OF PERITONEUM 03/08/2019 [employer], STORMY W 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 ELSWHR 03/08/2019 [employer], STORMY W D62 ACUTE POSTHEMORRHAGIC ANEMIA 03/08/2019 [employer], STORMY W D69 .6 THROMBOCYTOPENIA, UNSPECIFIED 03/08/2019 [employer], STORMY W E86 .0 DEHYDRATION 03/08/2019 ZULY ALONSO STORMY W F10 .20 ALCOHOL DEPENDENCE, UNCOMPLICATED 03/08/2019 [employer], STORMY W 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, UNCOMPLICATED 03/08/2019 [employer], STORMY W G89 .29 OTHER CHRONIC PAIN 03/08/2019 [employer], STORMY W I10 ESSENTIAL (PRIMARY) HYPERTENSION 03/08/2019 [employer], STORMY W I48 .2 CHRONIC ATRIAL FIBRILLATION 03/08/2019 [employer], STORMY W I48 .91 UNSPECIFIED ATRIAL FIBRILLATION 03/08/2019 ZULY JOURNALISTS AND OTHER WRITERS, STORMY W J18 .9 PNEUMONIA, UNSPECIFIED ORGANISM 03/08/2019 ZULY JOURNALISTS AND OTHER WRITERS, STORMY W M54 .5 LOW BACK PAIN 03/08/2019 ZULY JOURNALISTS AND OTHER WRITERS, STORMY W N39 .0 URINARY TRACT INFECTION, SITE NOT SPECIFIED 03/08/2019 ZULY JOURNALISTS AND OTHER WRITERS, STORMY W N40 .0 BENIGN PROSTATIC HYPERPLASIA WITHOUT LOWER URINRY TRACT SYMP 03/08/2019 ZULY JOURNALISTS AND OTHER WRITERS, STORMY W R04 .0 EPISTAXIS 03/08/2019 ZULY JOURNALISTS AND OTHER WRITERS, STORMY W R29 .6 REPEATED FALLS 03/08/2019 ZULY JOURNALISTS AND OTHER WRITERS, STORMY W R31 .0 GROSS HEMATURIA 03/08/2019 ZULY JOURNALISTS AND OTHER WRITERS, STORMY W R50 .9 FEVER, UNSPECIFIED 03/08/2019 ZULY JOURNA[employer]S [employer] OTHER WRITERS, STORMY W R53 .1 WEAKNESS 03/08/2019 ZULY J[employer]RNA[employer] OTHER WRITERS, STORMY W R53 .81 OTHER MALAISE 03/08/2019 ZULYCHANG SAMUEL APRNRip Goldberg 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 03/08/2019 ZULYCHANG SAMUEL APRNRip W Z91 .81 HISTORY OF FALLING 03/08/2019 ZULY JOURNA[employer]S [employer] OTHER WRITERS CORTNEY W Z98 .1 ARTHRODESIS STATUS 03/09/2019 Phyllis Leiva W G93.4 OTHER AND UNSPECIFIED ENCEPHALOPATHY 03/13/2019 Phyllis Leiva W 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 03/13/2019 Phyllis Leiva W D62 ACUTE POSTHEMORRHAGIC ANEMIA 03/13/2019 Phyllis Leiva W D69.6 THROMBOCYTOPENIA, UNSPECIFIED 03/13/2019 Phyllis Leiva W E86.0 DEHYDRATION 03/13/2019 Phyllis Leiva W F10.20 ALCOHOL DEPENDENCE, UN 03/13/2019 Phyllis Leiva W 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, UNCOMPLICATED 03/13/2019 Phyllis Leiva W G89.29 OTHER CHRONIC PAIN 03/13/2019 Phyllis Leiva W G93.4 OTHER AND UNSPECIFIED ENCEPHALOPATHY 03/13/2019 Phyllis Leiva W I10 ESSENTIAL (PRIMARY) HYPERTENSION 03/13/2019 Phyllis Leiva W I48.2 CHRONIC ATRIAL FIBRILLATION 03/13/2019 Phyllis Leiva W I48.91 UNSPECIFIED ATRIAL FIBRILLATION 03/13/2019 Phyllis Leiva W J18.9 PNEUMONIA, UNSPECIFIED ORGANISM 03/13/2019 Phyllis Leiva W N39.0 URINARY TRACT INFECTION, SITE NOT SPECIFIED 03/13/2019 Phyllis Leiva W N40.0 BENIGN PROSTATIC HYPERPLASIA WITHOUT LOWER URINRY TRACT SYMP 03/13/2019 Phyllis Leiva W R04.0 EPISTAXIS 03/13/2019 Phyllis Leiva W R26.89 OTHER ABNORMALITIES OF GAIT AND MOBILITY 03/13/2019 Phyllis Leiva W R29.6 REPEATED FALLS 03/13/2019 Phyllis Leiva W R31.0 GROSS HEMATURIA 03/13/2019 Phyllis Leiva W R50.9 FEVER, UNSPECIFIED 03/13/2019 Phyllis Leiva W R53.1 WEAKNESS 03/13/2019 Phyllis Leiva W R53.81 OTHER MALAISE 03/13/2019 Phyllis Leiva W 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 03/13/2019 LeivaYasminetoby Goldberg Z91.81 HISTORY OF FALLING 03/13/2019 LeivaYasminetoby Goldberg Z98.1 ARTHRODESIS STATUS 03/22/2019 JUJU TAVERAS 291 .89 OTHER 03/22/2019 JUJU TAVERAS 296 .34 MAJOR DEPRESSIVE DISORDER, RECURRENT EPISODE, SEVERE DEG 03/22/2019 JUJU TAVERAS 427 .31 ATRIAL FIBRILLATION 03/22/2019 JUJU TAVERAS 780 .52 I 03/22/2019 JUJU TAVERAS D62 ACUTE POSTHEMORRHAGIC ANEMIA 03/22/2019 JUJU TAVERAS D69 .6 THROMBOCYTOPENIA, UNSPECIFIED 03/22/2019 JUJU TAVERAS E86 .0 DEHYDRATION 03/22/2019 GRECIAGLJUJU RAMIREZ 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 03/22/2019 JUJU TAVERAS F10 .20 ALCOHOL DEPENDENCE, UNCOMPLICATED 03/22/2019 JACOBTAGLJUJU RAMIREZ 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, UNCOMPLICATED 03/22/2019 GRECIAGLJUJU RAMIREZ F33 .3 MAJOR DEPRESSV DISORDER, RECURRENT, SEVERE W PSYCH SYMPTOMS 03/22/2019 JUJU TAVERAS G47 .00 INSOMNIA, UNSPECIFIED 03/22/2019 JUJU TAVERAS I10 ESSENTIAL (PRIMARY) HYPERTENSION 03/22/2019 JUJU TAVERAS I48 .2 CHRONIC ATRIAL FIBRILLATION 03/22/2019 JUJU TAVERAS I48 .91 UNSPECIFIED ATRIAL FIBRILLATION 03/22/2019 JUJU TAVERAS J18 .9 PNEUMONIA, UNSPECIFIED ORGANISM 03/22/2019 JUJU TAVERAS N40 .0 BENIGN PROSTATIC HYPERPLASIA WITHOUT LOWER URINRY TRACT SYMP 03/22/2019 JUJU TAVERAS R04 .0 EPISTAXIS 03/22/2019 JUJU TAVERAS R29 .6 REPEATED FALLS 03/22/2019 JUJU TAVERAS R31 .0 GROSS HEMATURIA 03/22/2019 JUJU TAVERAS R50 .9 FEVER, UNSPECIFIED 03/22/2019 JUJU TAVERAS R53 .1 WEAKNESS 03/22/2019 JUJU TAVERAS R53 .81 OTHER MALAISE 03/22/2019 JUJU TAVERAS V58 .61 LONG-TERM (CURRENT) 03/22/2019 JUJU TAVERAS 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 Results Test Result Range Digoxin - 10/18/17 16:24 Digoxin 0.3 ng/mL 0.5-1.5 Urinalysis - 10/18/17 18:02 Icotest Negative Negative Urine Volume Urine Volume Sufficient (10mL) Urine Yeast No Yeast present Urine-Appearance Slightly Cloudy Clear Urine-Bacteria Trace Urine-Bilirubin 1+ Negative Urine-Blood Negative Negative Urine-Color Yellow Colorless-[place] Urine-Epithelial Cells 0-5/HPF Urine-Glucose Negative Negative Urine-Ketones Negative Negative Urine-Leukocytes Negative Negative Urine-Mucus 3+ Urine-Nitrite Negative Negative Urine-Other Urine Saved if Culture Need ed (48hrs from time of collection) Urine-pH 5.5 5-8.5 Urine-Protein 1+ Negative Urine-RBC 0-2/HPF Urine-Specific [place] 1.025 1.000-1 .030 Urine-WBC Rare/HPF Urobilinogen 1.0 0.2-1.0 Mycoplasma - 10/18/17 18:55 Mycoplasma Negative Negative Blood Culture - 10/18/17 18:55 PRELIM CULTURE RESULTS Blood Culture POSITIV E, Growth Day [id number] Positive Cocci noted on Gram Stain, Further Testing Pending MEDIA PLATED Blood Culture Media Position C46 CULTURE SOURCE right ac Sensi - 10/18/17 18:55 FINAL CULTURE RESULTS Methicillin Resistant Staphylococcus aureus (Isolate 1) Ampicillin/Sulbactam <=8/4 Ampicillin >8 Amoxicillin/K Clavulanate >4/2 Ceftriaxone >32 Clindamycin <=0.5 Cefoxitin Screen >4 Ciprofloxacin <=1 Daptomycin <=0.5 Erythromycin >4 Nitrofurantoin <=32 Gentamicin <=4 Gentamicin Synergy Screen N/R Inducible Clindamycin <=4/0.5 Levofloxacin <=1 Linezolid <=1 Moxifloxacin <=0.5 Oxacillin >2 Penicillin >8 Rifampin <=1 Streptomycin Synergy N/R Synercid <=0.5 Trimethoprim/ Sulfamethoxazole <=0.5/9.5 Tetracycline <=4 Vancomycin 1 Blood Culture - 10/18/17 18:55 PRELIM CULTURE RESULTS Blood Culture POSITIV E, Growth Day [id number] Negative Rods seen on Gram Stain, Further Testing is pending FINAL CULTURE RESULTS MRSA, same LOU as othe r blood culture. MEDIA PLATED Blood Culture Media Position C50 CULTURE SOURCE left ac BMP - 10/19/17 05:41 Anion Gap 19 6-14 BUN 17 mg/dL 5-25 Calcium 8.8 mg/dL 8.3-10.4 Chloride 102 mmol/L 95-114 CO2 21 mEq/L 22-33 Creat 0.88 mg/dL 0.50-1.50 eGFR 84 mL/min/1.73m2 >59 Glucose 111 mg/dL 70-110 Osmo 285 280-295 Potassium 4.5 mmol/L 3.5-5.3 Sodium 137 mmol/L 134-148 Comprehensive Metabolic Panel - 10/20/17 05:15 Albumin 3.4 g/dL 3.6-5.1 ALP 68 U/L 35-130 ALT 23 U/L 6-45 Anion Gap 16 6-14 AST 24 U/L 2-40 BUN 16 mg/dL 5-25 Calcium 8.5 mg/dL 8.3-10.4 Chloride 102 mmol/L 95-114 CO2 22 mEq/L 22-33 Creat 0.86 mg/dL 0.50-1.50 eGFR 87 mL/min/1.73m2 >59 Globulin 2.5 g/dL 2.3-3.5 Glucose 120 mg/dL 70-110 Osmo 281 280-295 Potassium 4.5 mmol/L 3.5-5.3 Sodium 135 mmol/L 134-148 TBil 1.0 mg/dL 0.2-1.2 TP 5.9 g/dL 6.0-8.3 Vancomycin Trough - 10/22/17 09:00 Vanco Trough 7.5 ug/mL 10.0-20.0 Vancomycin Trough - 10/23/17 09:51 Vanco Trough 12.5 ug/mL 10.0-20.0 Comprehensive Metabolic Panel - 10/23/17 11:10 Albumin 3.1 g/dL 3.6-5.1 ALP 83 U/L 35-130 ALT 20 U/L 6-45 Anion Gap 16 6-14 AST 25 U/L 2-40 BUN 8 mg/dL 5-25 Calcium 8.7 mg/dL 8.3-10.4 Chloride 103 mmol/L 95-114 CO2 22 mEq/L 22-33 Creat 0.72 mg/dL 0.50-1.50 eGFR 106 mL/min/1.73m2 >59 Globulin 2.3 g/dL 2.3-3.5 Glucose 135 mg/dL 70-110 Osmo 281 280-295 Potassium 4.5 mmol/L 3.5-5.3 Sodium 136 mmol/L 134-148 TBil 0.9 mg/dL 0.2-1.2 TP 5.4 g/dL 6.0-8.3 Vancomycin Trough - 10/25/17 11:00 Vanco Trough 15.8 ug/mL 10.0-20.0 Comprehensive Metabolic Panel - 10/27/17 05:51 Albumin 3.4 g/dL 3.6-5.1 ALP 77 U/L 35-130 ALT 19 U/L 6-45 Anion Gap 14 6-14 AST 21 U/L 2-40 BUN 4 mg/dL 5-25 Calcium 9.3 mg/dL 8.3-10.4 Chloride 103 mmol/L 95-114 CO2 25 mEq/L 22-33 Creat 0.82 mg/dL 0.50-1.50 eGFR 92 mL/min/1.73m2 >59 Globulin 2.7 g/dL 2.3-3.5 Glucose 148 mg/dL 70-110 Osmo 285 280-295 Potassium 4.2 mmol/L 3.5-5.3 Sodium 138 mmol/L 134-148 TBil 0.9 mg/dL 0.2-1.2 TP 6.1 g/dL 6.0-8.3 Digoxin - 04/12/18 13:43 Digoxin 0.6 ng/mL 0.5-1.5 Rapid Drug Screen + ETOH,Medical - 04/12 13:43 Amphetamine NEGATIVE NEGATIVE Barbiturates NEGATIVE NEGATIVE Benzodiazepines NEGATIVE NEGATIVE Cocaine NEGATIVE NEGATIVE Ethanol, Urine 71.50 mg/dL 20.00-80.00 Marijuana NEGATIVE NEGATIVE Methylenedioxymethamphetamine NEGATIVE NEGATIVE Opiates NEGATIVE NEGATIVE Oxycodone NEGATIVE NEGATIVE Phencyclidine NEGATIVE NEGATIVE Propoxyphene NEGATIVE NEGATIVE Tricyclic Antidepressant NEGATIVE NEGAT CARMELLA Thyroid Stimulating Hormone - 04/12/18 1 3:43 TSH 1.95 mIU/mL 0.32-5.00 Blood Culture - 04/12/18 13:43 PRELIM CULTURE RESULTS Blood Culture Negativ e, No Growth Day 1 FINAL CULTURE RESULTS Blood Culture Negative , No Growth Day 5 MEDIA PLATED Blood Culture Media Position B32 CULTURE SOURCE left arm Urine Culture - 04/12/18 13:43 PRELIM CULTURE RESULTS >100,000 Gram Positiv e LOU / ID to Follow CULTURE SOURCE Cath Blood Culture - 04/12/18 15:58 PRELIM CULTURE RESULTS Blood Culture Negativ e, No Growth Day 1 FINAL CULTURE RESULTS Blood Culture Negative , No Growth Day 5 MEDIA PLATED Blood Culture Media Position C43 CULTURE SOURCE Right Hand Protime - 04/12/18 16:48 INR 1.1 1.0-4.0 Protime 12.7 Sec 9.9-12.8 Cardiac Panel - 04/12/18 19:23 CK 138 U/L 26-174 CK-MB 1.3 ng/ml 0.0-9.2 Myoglobin 72.5 ng/ml 1.6-154.9 Troponin <0.020 ng/mL 0.0-0.4 EKG - 04/12/18 20:34 EKG Complete Comprehensive Metabolic Panel - 04/13/18 05:53 Albumin 3.5 g/dL 3.6-5.1 ALP 71 U/L 35-130 ALT 27 U/L 6-45 Anion Gap 15 6-14 AST 68 U/L 2-40 BUN 8 mg/dL 5-25 Calcium 8.3 mg/dL 8.3-10.4 Chloride 105 mmol/L 95-114 CO2 25 mEq/L 22-33 Creat 0.87 mg/dL 0.50-1.50 eGFR 85 mL/min/1.73m2 >59 Globulin 2.4 g/dL 2.3-3.5 Glucose 120 mg/dL 70-110 Osmo 291 280-295 Potassium 3.6 mmol/L 3.5-5.3 Sodium 141 mmol/L 134-148 TBil 2.0 mg/dL 0.2-1.2 TP 5.9 g/dL 6.0-8.3 MRSA Screen - 04/13/18 06:47 FINAL CULTURE RESULTS MRSA Negative Nasal Culture Comprehensive Metabolic Panel - 04/14/18 05:00 Albumin 3.2 g/dL 3.6-5.1 ALP 70 U/L 35-130 ALT 21 U/L 6-45 Anion Gap 13 6-14 AST 42 U/L 2-40 BUN 6 mg/dL 5-25 Calcium 7.9 mg/dL 8.3-10.4 Chloride 103 mmol/L 95-114 CO2 26 mEq/L 22-33 Creat 0.89 mg/dL 0.50-1.50 eGFR 83 mL/min/1.73m2 >59 Globulin 2.3 g/dL 2.3-3.5 Glucose 137 mg/dL 70-110 Osmo 285 280-295 Potassium 3.6 mmol/L 3.5-5.3 Sodium 138 mmol/L 134-148 TBil 1.4 mg/dL 0.2-1.2 TP 5.5 g/dL 6.0-8.3 C.difficile, DNA Amplification - 9 23:36 C.difficile, DNA Amplification NEGATIVE: No DNA evidence of toxogenic C. difficile detected. Negative Comprehensive Metabolic Panel - 04/15/18 05:10 Albumin 3.2 g/dL 3.6-5.1 ALP 66 U/L 35-130 ALT 19 U/L 6-45 Anion Gap 12 6-14 AST 34 U/L 2-40 BUN 10 mg/dL 5-25 Calcium 8.0 mg/dL 8.3-10.4 Chloride 105 mmol/L 95-114 CO2 25 mEq/L 22-33 Creat 0.85 mg/dL 0.50-1.50 eGFR 88 mL/min/1.73m2 >59 Globulin 2.3 g/dL 2.3-3.5 Glucose 118 mg/dL 70-110 Osmo 285 280-295 Potassium 3.6 mmol/L 3.5-5.3 Sodium 138 mmol/L 134-148 TBil 0.9 mg/dL 0.2-1.2 TP 5.5 g/dL 6.0-8.3 Comprehensive Metabolic Panel - 04/16/18 05:20 Albumin 3.7 g/dL 3.6-5.1 ALP 70 U/L 35-130 ALT 20 U/L 6-45 Anion Gap 15 6-14 AST 34 U/L 2-40 BUN 8 mg/dL 5-25 Calcium 8.9 mg/dL 8.3-10.4 Chloride 102 mmol/L 95-114 CO2 26 mEq/L 22-33 Creat 0.89 mg/dL 0.50-1.50 eGFR 83 mL/min/1.73m2 >59 Globulin 2.5 g/dL 2.3-3.5 Glucose 112 mg/dL 70-110 Osmo 286 280-295 Potassium 3.9 mmol/L 3.5-5.3 Sodium 139 mmol/L 134-148 TBil 1.1 mg/dL 0.2-1.2 TP 6.2 g/dL 6.0-8.3 Comprehensive Metabolic Panel - 04/17/18 05:15 Albumin 3.4 g/dL 3.6-5.1 ALP 61 U/L 35-130 ALT 19 U/L 6-45 Anion Gap 13 6-14 AST 34 U/L 2-40 BUN 7 mg/dL 5-25 Calcium 8.6 mg/dL 8.3-10.4 Chloride 104 mmol/L 95-114 CO2 25 mEq/L 22-33 Creat 0.86 mg/dL 0.50-1.50 eGFR 87 mL/min/1.73m2 >59 Globulin 2.3 g/dL 2.3-3.5 Glucose 98 mg/dL 70-110 Osmo 283 280-295 Potassium 3.9 mmol/L 3.5-5.3 Sodium 138 mmol/L 134-148 TBil 1.0 mg/dL 0.2-1.2 TP 5.7 g/dL 6.0-8.3 VITAMIN D, 25-H - 06/20/18 11:19 VITAMIN D,25-OH,TOTAL,IA 34 ng/mL 30-10 0 Comprehensive Metabolic Panel - 07/24/18 01:20 Albumin 3.9 g/dL 3.6-5.1 ALP 60 U/L 35-130 ALT 14 U/L 6-45 Anion Gap 14 6-14 AST 26 U/L 2-40 BUN 11 mg/dL 5-25 Calcium 9.8 mg/dL 8.3-10.4 Chloride 106 mmol/L 95-114 CO2 22 mEq/L 22-33 Creat 0.93 mg/dL 0.50-1.50 eGFR 79 mL/min/1.73m2 >59 Globulin 3.1 g/dL 2.3-3.5 Glucose 137 mg/dL 70-110 Osmo 287 280-295 Potassium 4.0 mmol/L 3.5-5.3 Sodium 138 mmol/L 134-148 TBil 0.6 mg/dL 0.2-1.2 TP 7.0 g/dL 6.0-8.3 HH - 07/27/18 16:01 Hct 40.5 % 42.0-52.0 Hgb 14.3 g/dL 14.0-17.0 Ethanol - 03/08/19 13:03 Ethanol 294 mg/dL 20-80 Thyroid Stimulating Hormone - 03/09/19 1 6:44 TSH 1.22 mIU/mL 0.32-5.00 Rapid Drug Screen + ETOH,Medical - 03/09 18:41 Amphetamine NEGATIVE NEGATIVE Barbiturates NEGATIVE NEGATIVE Benzodiazepines POSITIVE NEGATIVE Cocaine NEGATIVE NEGATIVE Ethanol, Urine 304.70 mg/dL 20.00-80.00 Marijuana NEGATIVE NEGATIVE Methylenedioxymethamphetamine NEGATIVE NEGATIVE Opiates NEGATIVE NEGATIVE Oxycodone NEGATIVE NEGATIVE Phencyclidine NEGATIVE NEGATIVE Propoxyphene NEGATIVE NEGATIVE Tricyclic Antidepressant NEGATIVE NEGAT CARMELLA Comprehensive Metabolic Panel - 03/10/19 05:47 Albumin 3.6 g/dL 3.6-5.1 ALP 52 U/L 35-130 ALT 36 U/L 6-45 Anion Gap 18 6-14 AST 74 U/L 2-40 BUN 7 mg/dL 5-25 Calcium 8.0 mg/dL 8.3-10.4 Chloride 108 mmol/L 95-114 CO2 21 mEq/L 22-33 Creat 0.74 mg/dL 0.50-1.50 eGFR 103 mL/min/1.73m2 >59 Globulin 2.3 g/dL 2.3-3.5 Glucose 75 mg/dL 70-110 Osmo 292 280-295 Potassium 4.0 mmol/L 3.5-5.3 Sodium 143 mmol/L 134-148 TBil 1.1 mg/dL 0.2-1.2 TP 5.9 g/dL 6.0-8.3 EKG - 03/10/19 11:13 EKG Complete Comprehensive Metabolic Panel - 03/11/19 05:30 Albumin 3.3 g/dL 3.6-5.1 ALP 49 U/L 35-130 ALT 27 U/L 6-45 Anion Gap 14 6-14 AST 51 U/L 2-40 BUN 6 mg/dL 5-25 Calcium 8.1 mg/dL 8.3-10.4 Chloride 108 mmol/L 95-114 CO2 23 mEq/L 22-33 Creat 0.76 mg/dL 0.50-1.50 eGFR 100 mL/min/1.73m2 >59 Globulin 2.1 g/dL 2.3-3.5 Glucose 109 mg/dL 70-110 Osmo 289 280-295 Potassium 4.0 mmol/L 3.5-5.3 Sodium 141 mmol/L 134-148 TBil 2.0 mg/dL 0.2-1.2 TP 5.4 g/dL 6.0-8.3 Comprehensive Metabolic Panel - 03/12/19 05:24 Albumin 3.3 g/dL 3.6-5.1 ALP 53 U/L 35-130 ALT 23 U/L 6-45 Anion Gap 14 6-14 AST 36 U/L 2-40 BUN 4 mg/dL 5-25 Calcium 8.1 mg/dL 8.3-10.4 Chloride 108 mmol/L 95-114 CO2 23 mEq/L 22-33 Creat 0.75 mg/dL 0.50-1.50 eGFR 101 mL/min/1.73m2 >59 Globulin 2.2 g/dL 2.3-3.5 Glucose 126 mg/dL 70-110 Osmo 290 280-295 Potassium 3.9 mmol/L 3.5-5.3 Sodium 141 mmol/L 134-148 TBil 1.6 mg/dL 0.2-1.2 TP 5.5 g/dL 6.0-8.3 Comprehensive Metabolic Panel - 03/13/19 05:25 Albumin 3.3 g/dL 3.6-5.1 ALP 56 U/L 35-130 ALT 20 U/L 6-45 Anion Gap 12 6-14 AST 28 U/L 2-40 BUN 3 mg/dL 5-25 Calcium 8.4 mg/dL 8.3-10.4 Chloride 108 mmol/L 95-114 CO2 26 mEq/L 22-33 Creat 0.77 mg/dL 0.50-1.50 eGFR 98 mL/min/1.73m2 >59 Globulin 2.3 g/dL 2.3-3.5 Glucose 119 mg/dL 70-110 Osmo 291 280-295 Potassium 3.9 mmol/L 3.5-5.3 Sodium 142 mmol/L 134-148 TBil 1.3 mg/dL 0.2-1.2 TP 5.6 g/dL 6.0-8.3 Lipid Panel - 03/14/19 05:45 C/HDL 2.4 3.7-6.7 Cholesterol 137 mg/dL 100-240 HDL 58 mg/dL 30-85 LDL-Calculated 65 mg/dL 0-100 Trig 70 mg/dL 35-160 VLDL 14 mg/dL 0-42 Urinalysis - 03/14/19 14:11 Icotest N/A Negative Urine Volume Urine Volume Sufficient (10mL) Urine-Appearance Clear Clear Urine-Bacteria Trace Urine-Bilirubin Negative Negative Urine-Blood 3+ Negative Urine-Color Yellow Colorless-[place] Urine-Epithelial Cells 5-10/HPF Urine-Glucose Negative Negative Urine-Ketones Negative Negative Urine-Leukocytes Negative Negative Urine-Nitrite Negative Negative Urine-Other Culture to follow Urine-pH 6.0 5-8.5 Urine-Protein Negative Negative Urine-RBC 20-40/HPF Urine-Specific [place] 1.020 1.000-1 .030 Urine-WBC 2-5/HPF Urobilinogen 1.0 E.U./dL 0.2-1.0 Urine Culture - 03/14/19 14:11 PRELIM CULTURE RESULTS No Growth 24 hours FINAL CULTURE RESULTS No Growth 48 hours MEDIA PLATED Setup at 14:17 on 03/14/2019 CULTURE SOURCE clean catch from [facility] Comprehensive Metabolic Panel - 03/20/19 05:29 Albumin 3.5 g/dL 3.6-5.1 ALP 52 U/L 35-130 ALT 17 U/L 6-45 Anion Gap 13 6-14 AST 20 U/L 2-40 BUN 9 mg/dL 5-25 Calcium 9.2 mg/dL 8.3-10.4 Chloride 103 mmol/L 95-114 CO2 28 mEq/L 22-33 Creat 0.78 mg/dL 0.50-1.50 eGFR 97 mL/min/1.73m2 >59 Globulin 2.2 g/dL 2.3-3.5 Glucose 119 mg/dL 70-110 Osmo 289 280-295 Potassium 4.2 mmol/L 3.5-5.3 Sodium 140 mmol/L 134-148 TBil 0.7 mg/dL 0.2-1.2 TP 5.7 g/dL 6.0-8.3 Ethanol - 07/17/19 09:50 Ethanol 125 mg/dL 20-80 Encounters ACCT No. Visit Date/Time Discharge Status Pt. Type Provider Facility Loc./Unit Complaint [id number] 07/17/2019 10:16:00 07/17/2019 23:59 :00 DIS Outpatient [place] [id number] 04/05/2019 13:34:00 04/05/2019 23:59 :00 DIS Outpatient Urmila Reza [id number] 03/13/2019 11:40:00 03/22/2019 12:10 :00 DIS Inpatient JUJU TAVERAS [facility] [id number] 03/09/2019 15:43:00 03/13/2019 13:10 :00 [id number] 03/08/2019 12:09:00 03/08/2019 14:30 :00 DIS Outpatient CORTNEY CARUSO APRN [facility] ER [id number] 11/18/2018 16:10:00 11/18/2018 18:10: 00 DIS Outpatient Marcellus Taylor [facility] ER [id number] 07/27/2018 15:22:00 07/27/2018 17:10: 00 DIS Outpatient CAROLYN SNELL [id number] 07/26/2018 17:47:00 07/26/2018 18:30: 00 DIS Outpatient Marcellus Taylor [id number] 07/24/2018 01:07:00 07/24/2018 02:24: 00 DIS Outpatient JEANETTE SANTOYO [facility] ER [id number] 05/25/2018 11:06:00 06/08/2018 15:14: 00 DIS Outpatient RezaUrmila [id number] 04/12/2018 18:45:00 04/17/2018 13:00: 00 DIS Inpatient Phyllis Leiva C enter ICU [id number] 10/21/2017 12:44:00 10/28/2017 17:27: 00 DIS Inpatient Phyllis Leiva C enter MED-SURG [id number] 10/18/2017 19:04:00 10/21/2017 13:01: 00 DIS Inpatient Phyllis Leiva C enter ICU [id number] 10/11/2017 16:04:00 10/17/2017 13:23: 00 DIS Inpatient Phyllis Leiva C enter MED-SURG [id number] 07/05/2019 11:34:03 Document Registration [id number] 10/11/2017 16:56:37 Document Registration [id number] 07/24/2018 00:55:00 Document Registration [id number] 12/01/2018 11:50:00 23:59:59 CLS Outpatient TYRONE SMITH DO [facility] RAD CYST [id number] 11/15/2018 15:24:00 23:59:59 CLS Outpatient TYRONE SMITH DO [facility] RAD BACK PAIN [id number] 09/28/2018 14:00:00 09/28/2018 23:59: 59 CLS Outpatient URMILA REZA [id number] 06/20/2018 10:40:00 Document Registration
[2019-08-10] MEDS ORDERED: LACTATED RINGERS 1,000 ML IV ONE (03:07)
[2019-08-10 03:14] LABS: BASOPHILS % (AUTO) 0 % (0-10); EOSINOPHILS % (AUTO) 0 % (0-10); HEMATOCRIT 39 % (40-54); HEMOGLOBIN 13.3 G/DL (13.3-17.7); LYMPHOCYTES # (AUTO) 0.9 X 10^3 (1.0-4.0); LYMPHOCYTES % (AUTO) 13 % (12-44); MEAN CORPUSCULAR HEMOGLOBIN 30 PG (25-34); MEAN CORPUSCULAR HGB CONC 34 G/DL (32-36); MEAN CORPUSCULAR VOLUME 86 FL (80-99); MEAN PLATELET VOLUME 8.8 FL (7.4-10.4); MONOCYTES # (AUTO) 0.7 X 10^3 (0.0-1.0); MONOCYTES % (AUTO) 10 % (0-12); NEUTROPHILS # (AUTO) 5.3 X 10^3 (1.8-7.8); NEUTROPHILS % (AUTO) 77 % (42-75); PLATELET COUNT 264 10^3/uL (130-400); RED CELL DISTRIBUTION WIDTH 14.1 % (10.0-14.5); WHITE BLOOD COUNT 6.9 10^3/uL (4.3-11.0)
[2019-08-10 03:20] LABS: INR 1.3 (0.8-1.4); PROTHROMBIN TIME PATIENT 16.7 SEC (12.2-14.7)
--- NOTE | 2019-08-10 03:23 | ED GI ---
General Chief Complaint: Abdominal/GI Problems Stated Complaint: NAUSEA/VOMITING Nursing Triage Note: C/O NAUSEA, VOMITING AND WEAKNESS X 2 DAYS, VERBALIZES HAS VOMITED 3-4 TIMES IN 24 HRS. VERBALIZES FEELS VERY WEAK, HAD A FALL AT HOME YESTERDAY AM WAS TREATED AND RELEASED AT [facility]. Sepsis Screen: No Definite Risk Source of Information: Patient (PT IS A VERY LIMITED HISTORIAN, ESPECIALLY ABOUT PMH, AND DOES NOT KNOW ANY OF HIS MEDICATIONS. ), EMS History of Present Illness Date Seen by Provider: August 10, 2019 Time Seen by Provider: 02:38 Initial Comments PT ARRIVES VIA EMS FROM HOME--PT LIVES ALONE C/O NAUSEA AND VOMITING FOR THE LAST 2 DAYS HAS VOMITED 3-4 TIMES IN LAST 24 HOURS--EMS GAVE ZOFRAN AND IV FLUIDS NO DIARRHEA. LAST BM WAS 3 DAYS AGO NO ABDOMINAL PAIN OR CRAMPING VOIDED JUST PRIOR TO ARRIVAL NO FEVER C/O FEELING WEAK DENIES ANY DIZZINESS NO CHEST PAIN OR SHORTNESS OF BREATH PT HAS CHRONIC COUGH AND IS NO DIFFERENT THAN NORMAL EMS REPORT THEY TRANSPORTED PT TO [facility] YESTERDAY 08/09/19 FOR A FALL--"THEY COULDN'T FIND ANYTHING". PT ADAMANTLY DENIES ANY INJURY OR PAIN FROM THAT. PT REPORTS TO ME THAT HE WENT TO [facility] FOR THIS ISSUE OF NAUSEA AND VOMITING--NO RX'S GIVEN, PER PT. PT REPEATEDLY DENIES SYNCOPAL EPISODE DID CONTACT [facility], AND VERIFIED THAT PT DID GO THERE YESTERDAY FOR A REPORTED FALL, NO INJURY IDENTIFIED AND PT DENIED ANY COMPLAINTS OF PAIN. WAS PRESCRIBED CEFDINIR FOR UPPER RESPIRATORY INFECTION. HE HAD ALSO REPORTED TO THEM THAT DR. DARNELL WAS HIS DR. STATES HE HAS NOT TAKEN ANY OF HIS MEDICATIONS FOR THE LAST 2 DAYS, BECAUSE HE HAS BEEN THROWING UP STATES HE HAS NOT HAD ANYTHING TO EAT OR DRINK FOR 2 DAYS EITHER. PCP: DR. DARNELL PT STATES HE DOES NOT SEE A LASER BEAM TRIM OPERATOR, BUT HAS ATRIAL FIBRILLATION AND IS ON A BLOOD THINNER Allergies and Home Medications Allergies Coded Allergies: No Known Drug Allergies (Unverified , 08/10/19) Patient Home Medication List Home Medication List Reviewed: Yes Review of Systems Review of Systems Constitutional: see HPI; No chills, No diaphoresis, No dizziness, No fever; weakness EENTM: No Symptoms Reported Respiratory: See HPI, Cough; Denies Shortness of Air, Denies Wheezing Cardiovascular: No Symptoms Reported; Denies Chest Pain, Denies Edema, Denies L ightheadedness, Denies Palpitations, Denies Syncope Gastrointestinal: See HPI; Denies Abdominal Pain; Constipated; Denies Diarrhea; Nausea, Vomiting Genitourinary: No Symptoms Reported Musculoskeletal: no symptoms reported; No back pain, No joint pain, No neck pain Skin: no symptoms reported Psychiatric/Neurological: No Symptoms Reported; Denies Headache Endocrine: No Symptoms Reported Hematologic/Lymphatic: No Symptoms Reported Past Goqwxxc-Bvwwzs-Dhahkz Hx Past Med/Social Hx: Reviewed and Corrections made Patient Social History Alcohol Use: Regular Use ("AT LEAST 2 HIGHBALLS EVERY NIGHT" ) Number of Drinks Today: 0 Recreational Drug Use: No Smoking Status: Former Smoker (QUIT 1974) Type Used: Pipe Recent Foreign Travel: No Contact w/Someone Who Travel: No Recent Infectious Disease Expo: No Physical Abuse: No Sexual Abuse: No Mistreated: No Fear: No Immunizations Up To Date Tetanus Booster (TDap): Less than 5yrs PED Vaccines UTD: Yes Past Medical History Surgeries: Yes (BACK SURGERY-DR. SMITH) Orthopedic, Tonsillectomy Respiratory: No Cardiac: Yes Atrial Fibrillation, Hypertension Neurological: No (? NEUROPATHY OR RESTLESS LEGS ? ) Genitourinary: Yes (PROSTATE PROBLEMS PER MEDICATION LIST-FLOMAX AND FINASTERIDE) Prostate Problems Gastrointestinal: No Musculoskeletal: Yes (S/P BACK SURGERY) Chronic Back Pain Endocrine: No HEENT: No Cancer: No Psychosocial: Yes (ON EFFEXOR--UNKNOWN DX ) Integumentary: No Blood Disorders: No Physical Exam Vital Signs Vital Signs - First Documented 08/10/19 02:50 Temp 35.8 Pulse 98 Resp 20 B/P (MAP) 145/93 (110) Pulse Ox 95 Capillary Refill : Less Than 3 Seconds Height/Weight/BMI Height: '" Weight: lbs. oz. kg; 28.00 BMI Method: General Appearance: WD/WN, no apparent distress HEENT: PERRL/EOMI, other (ORAL MUCOSA SLIGHTLY DRY) Respiratory: normal breath sounds, no respiratory distress, no accessory muscle use, other (OCCSIONAL, MILD NON-PRODUCTIVE COUGH) Cardiovascular: normal peripheral pulses, no edema, no JVD, no murmur, irregularly irregular Gastrointestinal: normal bowel sounds, non tender, soft, no organomegaly, no pulsatile mass; No distended, No guarding, No rebound, No tenderness, No hernia, No mass Extremities: normal inspection, no pedal edema, no calf tenderness, normal capillary refill Back: no CVA tenderness Neurologic/Psychiatric: 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 II-XII nml as tested, no motor/sensory deficits, alert, normal mood/affect, oriented x 3 (BUT POOR MEMORY) Skin: normal color, warm/dry; No ecchymosis, No rash; other (NO EXTERNAL EVIDENCE OF TRAUMA ANYWHERE) Progress/Results/Core Measures Results/Orders Lab Results Laboratory Tests Test 08/10/19 02:50 08/10/19 04:36 Range/Units White Blood Count 6.9 4.3-11.0 10^3/uL Red Blood Count 4.50 4.35-5.85 10^6/uL Hemoglobin 13.3 13.3-17.7 G/DL Hematocrit 39 L 40-54 % Mean Corpuscular Volume 86 80-99 FL Mean Corpuscular Hemoglobin 30 25-34 PG Mean Corpuscular Hemoglobin Concent 34 32-36 G/DL Red Cell Distribution Width 14.1 10.0-14.5 % Platelet Count 264 130-400 10^3/uL Mean Platelet Volume 8.8 7.4-10.4 FL Neutrophils (%) (Auto) 77 H 42-75 % Lymphocytes (%) (Auto) 13 12-44 % Monocytes (%) (Auto) 10 0-12 % Eosinophils (%) (Auto) 0 0-10 % Basophils (%) (Auto) 0 0-10 % Neutrophils # (Auto) 5.3 1.8-7.8 X 10^3 Lymphocytes # (Auto) 0.9 L 1.0-4.0 X 10^3 Monocytes # (Auto) 0.7 0.0-1.0 X 10^3 Eosinophils # (Auto) 0.0 0.0-0.3 10^3/uL Basophils # (Auto) 0.0 0.0-0.1 10^3/uL Prothrombin Time 16.7 H 12.2-14.7 SEC INR Comment 1.3 0.8-1.4 Activated Partial Thromboplast Time 39 H 24-35 SEC Sodium Level 138 135-145 MMOL/L Potassium Level 3.9 3.6-5.0 MMOL/L Chloride Level 100 98-107 MMOL/L Carbon Dioxide Level 23 21-32 MMOL/L Anion Gap 15 H 5-14 MMOL/L Blood Urea Nitrogen 7 7-18 MG/DL Creatinine 0.84 0.60-1.30 MG/DL Estimat Glomerular Filtration Rate > 60 BUN/Creatinine Ratio 8 Glucose Level 165 H 70-105 MG/DL Calcium Level 9.3 8.5-10.1 MG/DL Corrected Calcium 9.5 8.5-10.1 MG/DL Magnesium Level 1.6 1.6-2.4 MG/DL Total Bilirubin 0.8 0.1-1.0 MG/DL Aspartate Amino Transf (AST/SGOT) 20 5-34 U/L Alanine Aminotransferase (ALT/SGPT) 10 0-55 U/L Alkaline Phosphatase 76 40-136 U/L Troponin I < 0.028 <0.028 NG/ML Total Protein 7.4 6.4-8.2 GM/DL Albumin 3.7 3.2-4.5 GM/DL Amylase Level 35 25-125 U/L Lipase 22 8-78 U/L Digoxin Level 0.42 L 0.80-2.00 NG/ML My Orders Orders - LUCIANO KOO DO Ed Iv/Invasive Line Start (08/10/19 03:07) Ekg Tracing (08/10/19 03:07) Monitor-Rhythm Ecg Trace Only (08/10/19 03:07) Amylase (08/10/19 03:07) Cbc With Automated Diff (08/10/19 03:07) Comprehensive Metabolic Panel (08/10/19 03:07) Lipase (08/10/19 03:07) Magnesium (08/10/19 03:07) Protime With Inr (08/10/19 03:07) Partial Thromboplastin Time (08/10/19 03:07) Ua Culture If Indicated (08/10/19 03:07) Ed Iv/Invasive Line Start (08/10/19 03:07) Ed Iv/Invasive Line Start (08/10/19 03:07) Lactated Ringers (Lr 1000 Ml Iv Solution (08/10/19 03:07) Ct Abdomen/Pelvis W (08/10/19 03:39) Chest 1 View, Ap/Pa Only (08/10/19 03:39) Digoxin (08/10/19 03:53) Iohexol Injection (Omnipaque 350 Mg/Ml 1 (08/10/19 04:00) Received Contrast (Hold Metformin- Contr (08/10/19 04:00) Ns (Ivpb) (Sodium Chloride 0.9% Ivpb Bag (08/10/19 04:00) Troponin I (08/10/19 04:31) Ondansetron Injection (Zofran Injectio (08/10/19 04:45) Ceftriaxone For Iv Use (Rocephin For I (08/10/19 05:00) Azithromycin Injection (Zithromax Inject (08/10/19 05:00) Fibrin Degradation Products (08/10/19 04:53) Procalcitonin (Pct) (08/10/19 04:53) Hs C Reactive Protein (08/10/19 04:53) Erythrocyte Sedimentation Rate (08/10/19 04:53) LDH (08/10/19 04:53) Blood Culture (08/10/19 04:53) Coronavirus Sars-Cov-2 So 2018 (08/10/19 04:53) Adenovirus Detection By Pcr (08/10/19 04:53) Parainfluenza Virus 1,2,3 Pcr (08/10/19 04:53) Medications Given in ED Current Medications Medications Dose Ordered Sig/Zayra Route Start Time Stop Time Status Last Admin Dose Admin Iohexol 100 ml ONCE ONCE IV 08/10/19 04:00 08/10/19 04:01 UNV 08/10/19 04:27 100 ML Lactated Ringer's 1,000 ml @ 0 mls/hr Q0M ONCE IV 08/10/19 03:07 08/10/19 03:10 DC 08/10/19 03:26 1,000 MLS/HR Ondansetron HCl 8 mg ONCE ONCE IVP 08/10/19 04:45 08/10/19 04:46 UNV 08/10/19 04:35 8 MG Sodium Chloride 80 ml ONCE ONCE IV 08/10/19 04:00 08/10/19 04:01 UNV 08/10/19 04:27 80 ML Vital Signs/I&O 08/10/19 02:50 Temp 35.8 Pulse 98 Resp 20 B/P (MAP) 145/93 (110) Pulse Ox 95 Blood Pressure Mean: 110 Progress Progress Note : Progress Note ON REVIEWING MEDICATIONS FROM MED RECONCILIATION ( PT HAS NOT BEEN HERE BEFORE), IT APPEARS THAT PT IS SUPPOSED TO BE ON MULTIPLE MEDICATIONS FOR VARIOUS PROBLEMS, BUT HAVE NOT BEEN FILLED SINCE 05/10/19. PT DID RECEIVE A PRESCRIPTION FOR CEFDINIR 300 MG #20, FROM PROPERTY SPECIALIST AT [facility]. ALSO OF NOTE. RX'S THAT WERE PRESCRIBED IN MARCH AND PRIOR, WERE BY PROPERTY SPECIALIST DANUTA REZA--PT REPEATEDLY STATES THAT DR. DARNELL IS HIS DR AND HE DOES NOT SEE ANYONE ELSE, INCLUDING NO LASER BEAM TRIM OPERATOR. NO VOMITING DURING ER STAY, AND STATES NAUSEA IS BETTER AFTER ZOFRAN BY EMS VITALS STABLE UNEVENTFUL ER STAY Initial ECG Impression Date: August 10, 2019 Initial ECG Impression Time: 03:30 Initial ECG Rate: 82 Initial ECG Rhythm: A Fib/Flutter (WITH PVC'S) Initial ECG Comparisson: No Previous ECG Available Diagnostic Imaging Comments CXR--POOR INSPIRATION, ? MILD VASCULAR CONGESTION? --PENDING RADIOLOGIST REVIEW CT ABDOMEN/PELVIS--LLL CONSOLIDATION, CYSTIC LESION 6.9 CM FROM LEFT KIDNEY--NO OTHER ACUTE PROCESS--PER [facility] VIA FAX AT [phone] Reviewed: Reviewed by Me Departure Communication (Admissions) [id number]--SPOKE WITH DR. MARCIAL, HOSPITALIST COVERING DR. DARNELL'S PT'S. ACCEPTS PT FOR ADMIT. Impression Primary Impression: LLL pneumonia Additional Impressions: Nausea & vomiting Chronic atrial fibrillation COVID P.U.I. SUBTHERAPEUTIC DIGOXIN LEVEL Disposition: ADMITTED INPATIENT Condition: Improved Departure-Patient Inst. Referrals: NO,LOCAL PHYSICIAN (PCP) Primary Care Physician URMILA REZA (Family) Primary Care Physician LUCIANO KOO DO August 10, 2019 03:23
[2019-08-10 03:28] LABS: ALBUMIN 3.7 GM/DL (3.2-4.5); CHLORIDE 100 MMOL/L (98-107); POTASSIUM 3.9 MMOL/L (3.6-5.0); SODIUM 138 MMOL/L (135-145)
[2019-08-10 03:29] LABS: AMYLASE 35 U/L (25-125); CALCIUM 9.3 MG/DL (8.5-10.1)
[2019-08-10 03:30] LABS: GLUCOSE 165 MG/DL (70-105)
[2019-08-10 03:31] LABS: TOTAL PROTEIN 7.4 GM/DL (6.4-8.2)
[2019-08-10 03:32] LABS: BILIRUBIN,TOTAL 0.8 MG/DL (0.1-1.0); CARBON DIOXIDE 23 MMOL/L (21-32)
[2019-08-10 03:34] LABS: ALKALINE PHOSPHATASE 76 U/L (40-136); CREATININE SERUM 0.84 MG/DL (0.60-1.30); GFR ESTIMATED > 60
[2019-08-10 03:35] LABS: BUN/CREATININE RATIO 8
[2019-08-10 03:37] LABS: ALANINE AMINOTRANSFERASE 10 U/L (0-55); MAGNESIUM 1.6 MG/DL (1.6-2.4)
[2019-08-10 03:38] LABS: LIPASE 22 U/L (8-78)
[2019-08-10] MEDS ORDERED: METO50TA15 PO (03:57)
[2019-08-10] MEDS ORDERED: MIRT15TA6 (03:57)
[2019-08-10] MEDS ORDERED: VERA80TA4 PO (03:57)
[2019-08-10] MEDS ORDERED: DIGO125T3 PO (03:57)
[2019-08-10] MEDS ORDERED: GABA300C PO (03:57)
[2019-08-10] MEDS ORDERED: APIX5TAB PO (03:57)
[2019-08-10] MEDS ORDERED: CEFD300C3 PO (03:57)
[2019-08-10] MEDS ORDERED: LACT10SO33 (03:57)
[2019-08-10] MEDS ORDERED: AMLO5TAB9 PO (03:57)
[2019-08-10] MEDS ORDERED: FINA5TAB6 PO (03:57)
[2019-08-10] MEDS ORDERED: TMSL.4C PO (03:57)
[2019-08-10] MEDS ORDERED: VENL75CA93 PO (03:57)
[2019-08-10] MEDS ORDERED: HOLD METFORMIN - RECEIVED CONTRAST 20 ML VIAL IV SCH (04:00)
[2019-08-10] MEDS ORDERED: NS 100 ML (IVPB) BAG IV ONE (04:00)
[2019-08-10] MEDS ORDERED: IOHEXOL 350 MG/ML 100 ML (OMNIPAQUE 350) VIAL IV ONE (04:00)
[2019-08-10] MEDS ORDERED: ONDANSETRON 4 MG/2 ML (SDV) Z0FRAN IVP ONE (04:45)
[2019-08-10 04:47] LABS: BILIRUBIN,URINE NEGATIVE (NEGATIVE); CLARITY,URINE CLEAR; COLOR,URINE YELLOW; GLUCOSE, URINE (UA) NEGATIVE (NEGATIVE); KETONES,URINE 1+ (NEGATIVE); LEUKOCYTE ESTERASE ,URINE NEGATIVE (NEGATIVE); NITRITE,URINE NEGATIVE (NEGATIVE); PH,URINE 7.5 (5-9); PROTEIN,URINE NEGATIVE (NEGATIVE)
[2019-08-10] MEDS ORDERED: AZITHROMYCIN INJECTION 500 MG in NS (IVPB) 250 ML IV ONE (05:00)
[2019-08-10] MEDS ORDERED: cefTRIAXone FOR IV USE 1,000 MG in WATER (STERILE) FOR INJECTION 10 ML IV ONE (05:00)
[2019-08-10 05:07] LABS: FIBRIN DEGRADATION PRODUCTS 0.82 UG/ML (0.00-0.49)
[2019-08-10] MEDS ORDERED: ENOXAPARIN 100 MG/1 ML (LOVENOX) SYR SC ONE (05:15)
[2019-08-10 05:35] LABS: BACTERIA,URINE NEGATIVE /HPF; RBC,URINE 0-2 /HPF; SQUAMOUS EPITHELIAL CELL,UR 0-2 /HPF
--- NOTE | 2019-08-10 06:07 | Diagnostic Imaging Report ---
EXAM: CHEST 1 VIEW, AP/PA ONLY INDICATION: Cough. COMPARISON: None. FINDINGS: Low lung volumes accentuate the heart size and pulmonary vascularity. No focal pulmonary opacity, pleural effusion or pneumothorax. No acute osseous findings. IMPRESSION: No acute cardiopulmonary findings. Dictated by: Dictated on workstation # [id number]
--- NOTE | 2019-08-10 06:43 | NUR ---
REPORT GIVEN TO [facility] FOR ROOM 433.
--- NOTE | 2019-08-10 07:05 | NUR ---
REPORT FROM STEPHON PADRON
--- NOTE | 2019-08-10 07:06 | NUR ---
4TH FLOOR RN TO COME AND GET PT
[2019-08-10 07:40] VITALS: BP_SYST 138; BP_SYST 139; BP_DIAS 89
--- NOTE | 2019-08-10 07:40 | NUR ---
AMERICA COLBERT admitted to room 433-1, with an admitting diagnosis of NAUSEA/VOMITING, on 08/10/19 from ED via , accompanied by 2 RN'S.AMERICA COLBERT introduced to surroundings, call light, bed controls, phone, TV, temperature control, lights, meal times, smoking policy, visitor policy, side rail policy, bathrooms and showers. Patient Rights given to patient in the handbook. AMERICA COLBERT verbalizes understanding that [facility] is not responsible for the loss or damage to any personal effects or valuables that are kept in the patients posession during their hospitalization.
[2019-08-10] MEDS ORDERED: CATHETER FLUSH 10 ML SYR IV PRN (08:15)
--- OUTSIDE RECORDS SUMMARY | 2019-08-10 08:42 | XMS REPORT | Continuity of Care Document ---
[...] 04/19/2018 Daily&0900 MultiVits (Thera M Plus) (mu pcsgaj-pbfz-wxtwucy) oral tablet TAB 04/13/2018 05/12/2018 Daily&0900 THIAMINE [...] 04/20/2018 BID&0800,2000 MultiVits (Thera M Plus) (mu bpjrsc-iuxo-ktctezz) oral tablet TAB 04/14/2018 05/13/2018 Daily&0900 OXYCODONE [...] TAB 1 MG MG 03/15/2019 04/13/2019 Daily&0900 Dqcefkqe-hnke-dda-folic acid ) tab,CHEWable (Centrum) TAB 03/15/2019 04/13/2019 Daily&0900 MIRTAZAPINE TAB 15 MG (REMERON) MG 03/15/2019 04/13/2019 QHS&2100 AMLODIPINE TAB 5 MG (NORVASC) MG 03/16/2019 04/14/2019 Daily&0900 VENLAFAXINE XR CAP 75 MG (EFFEXOR XR) MG 03/17/2019 04/15/2019 Daily&0900 FINASTERIDE TAB 5 MG (PROSCAR) MG 03/18/2019 03/18/2019 ONCE&1021 Flu vacc oy2007-75 6mos up(P F)) IM syringe QUAD (Fluarix) [...] 10/17/2017 Phyllis Leiva W V45.4 10/17/2017 Phyllis Leiva W Z86.711 PERSONAL HISTORY OF [...] MEDICATIONS 04/17/2018 Phyllis Leiva W Z79.899 OTHER HALF-WAY (CURRENT) DRUG THERAPY 06/08/2018 Reza, Urmila W 303.90 OTHER AND UNSPECIFIED ALCOHOL DEPENDENCE, UNSPECIFIED DRINKING BEHAVIOR 06/08/2018 RezaUrmila W 401.0 06/08/2018 RezaUrmila W 427.32 ATRIAL FLUTTER 06/08/2018 RezaUrmila W 724.2 LUMBAGO 06/08/2018 RezaUrmila W 780.79 06/08/2018 RezaUrmila W 781.2 06/08/2018 RezaUrmila W F10.20 ALCOHOL DEPENDENCE, UNCOMPLICATED 06/08/2018 RezaUrmila W I10 ESSENTIAL (PRIMARY) HYPERTENSION 06/08/2018 Reza, Urmila W I48.2 CHRONIC ATRIAL FIBRILLATION 06/08/2018 RezaUrmila [...] OTHER SPECIFIED DISORDERS OF PERITONEUM 03/08/2019 ZULY FRACTIONATION PLANT SUPERVISOR, STORMY W 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 ELSWHR 03/08/2019 ZULY FRACTIONATION PLANT SUPERVISOR, STORMY W D62 ACUTE POSTHEMORRHAGIC ANEMIA 03/08/2019 ZULY FRACTIONATION PLANT SUPERVISOR, STORMY W D69 .6 THROMBOCYTOPENIA, UNSPECIFIED 03/08/2019 ZULY FRACTIONATION PLANT SUPERVISOR, STORMY W E86 .0 DEHYDRATION 03/08/2019 ZULY ALONSO STORMY W F10 .20 ALCOHOL DEPENDENCE, UNCOMPLICATED 03/08/2019 ZULY FRACTIONATION PLANT SUPERVISOR, STORMY W 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, UNCOMPLICATED 03/08/2019 ZULY FRACTIONATION PLANT SUPERVISOR, STORMY W G89 .29 OTHER CHRONIC PAIN 03/08/2019 ZULY FRACTIONATION PLANT SUPERVISOR, STORMY W I10 ESSENTIAL (PRIMARY) HYPERTENSION 03/08/2019 ZULY FRACTIONATION PLANT SUPERVISOR, STORMY W I48 .2 CHRONIC ATRIAL FIBRILLATION 03/08/2019 ZULY FRACTIONATION PLANT SUPERVISOR, STORMY W I48 .91 UNSPECIFIED ATRIAL FIBRILLATION 03/08/2019 ZULY FRACTIONATION PLANT SUPERVISOR, STORMY W J18 .9 PNEUMONIA, UNSPECIFIED ORGANISM 03/08/2019 ZULY FRACTIONATION PLANT SUPERVISOR, STORMY W M54 .5 LOW BACK PAIN 03/08/2019 ZULY FRACTIONATION PLANT SUPERVISOR, STORMY W N39 .0 URINARY TRACT INFECTION, SITE NOT SPECIFIED 03/08/2019 ZULY FRACTIONATION PLANT SUPERVISOR, STORMY W N40 .0 BENIGN PROSTATIC HYPERPLASIA WITHOUT LOWER URINRY TRACT SYMP 03/08/2019 ZULY FRACTIONATION PLANT SUPERVISOR, STORMY W R04 .0 EPISTAXIS 03/08/2019 ZULY FRACTIONATION PLANT SUPERVISOR, STORMY W R29 .6 REPEATED FALLS 03/08/2019 ZULY FRACTIONATION PLANT SUPERVISOR, STORMY W R31 .0 GROSS HEMATURIA 03/08/2019 ZULY FRACTIONATION PLANT SUPERVISOR, STORMY W R50 .9 FEVER, UNSPECIFIED 03/08/2019 ZULY FRACTIONATION PLANT SUPERVISOR, STORMY W R53 .1 WEAKNESS 03/08/2019 ZULY FRACTIONATION PLANT SUPERVISOR, STORMY W R53 .81 OTHER MALAISE 03/08/2019 ZULYCHANG SAMUEL APRNRip Goldberg 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 03/08/2019 ZULYCHANG SAMUEL APRNRip W Z91 .81 HISTORY OF FALLING 03/08/2019 ZULY FRACTIONATION PLANT SUPERVISOR CORTNEY W Z98 .1 ARTHRODESIS STATUS 03/09/2019 [...] TAVERAS F10 .20 ALCOHOL DEPENDENCE, UNCOMPLICATED 03/22/2019 JACOBTAGLUJJU RAMIREZ 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, UNCOMPLICATED [...] JUJU TAVERAS R31 .0 GROSS HEMATURIA 03/22/2019 TARTAGLIONE, JUJU W R50 .9 FEVER, UNSPECIFIED 03/22/2019 JACOBTAGLJUJU RAMIREZ R53 .1 WEAKNESS 03/22/2019 JUJU TAVERAS W R53 .81 OTHER MALAISE 03/22/2019 JUJU TAVERAS V58 .61 LONG-TERM (CURRENT) 03/22/2019 GRECIAGLJUJU RAMIREZ Z79 .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 03/22/2019 JUJU TAVERAS 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 03/22/2019 JUJU TAVERAS W Z91 .81 HISTORY OF FALLING 03/22/2019 JUJU TAVERAS Z98 .1 ARTHRODESIS STATUS 08/09/2019 W B95.62 [facility] CAUSING DISEASES CLASSD ELSWHR 08/09/2019 W D62 ACUTE POSTHEMORRHAGIC ANEMIA 08/09/2019 W D69.6 THRO MBOCYTOPENIA, UNSPECIFIED 08/09/2019 W E86.0 DEHY DRATION 08/09/2019 W F10.20 ALC OHOL DEPENDENCE, UNCOMPLICATED 08/09/2019 W F10.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89 OTH ER ABNORMALITIES OF GAIT AND MOBILITY 08/09/2019 W R29.6 REPE ATED FALLS 08/09/2019 W R31.0 CYNTHIA S HEMATURIA 08/09/2019 W R50.9 FEVE R, UNSPECIFIED 08/09/2019 W R53.1 WEAKNESS 08/09/2019 W R53.81 OTH ER MALAISE 08/09/2019 W Z86.711 PE RSONAL HISTORY OF PULMONARY EMBOLISM 08/09/2019 W Z91.81 HIS TORY OF FALLING 08/09/2019 W Z98.1 ARTH RODESIS STATUS Procedures There is no data. Results Test Result Range Digoxin - 10/18/17 16:24 Digoxin 0.3 ng/mL 0.5-1.5 Urinalysis - 10/18/17 18:02 Icotest Negative Negative Urine Volume Urine Volume Sufficient (10mL) Urine Yeast No Yeast present Urine-Appearance Slightly Cloudy Clear Urine-Bacteria Trace Urine-Bilirubin 1+ Negative Urine-Blood Negative Negative Urine-Color Yellow Colorless-Lt. [place] ow Urine-Epithelial Cells 0-5/HPF Urine-Glucose Negative Negative Urine-Ketones Negative Negative Urine-Leukocytes Negative Negative Urine-Mucus 3+ Urine-Nitrite Negative Negative Urine-Other Urine Saved if Culture Need ed (48hrs from time of collection) Urine-pH 5.5 5-8.5 Urine-Protein 1+ Negative Urine-RBC 0-2/HPF Urine-Specific [place] 1.025 1.000-1 .030 Urine-WBC Rare/HPF Urobilinogen 1.0 0.2-1.0 Mycoplasma - 10/18/17 18:55 Mycoplasma Negative Negative Blood Culture - 10/18/17 18:55 PRELIM CULTURE RESULTS Blood Culture POSITIV E, Growth Day [id number] Positive Cocci noted on Gram Stain, Further [...] RESULTS Blood Culture POSITIV E, Growth Day [id number] Negative Rods seen on Gram Stain, Further [...] Negative Urine-Blood 3+ Negative Urine-Color Yellow Colorless-Lt. [place] ow Urine-Epithelial Cells 5-10/HPF Urine-Glucose Negative Negative Urine-Ketones Negative Negative Urine-Leukocytes Negative Negative Urine-Nitrite Negative Negative Urine-Other Culture to follow Urine-pH 6.0 5-8.5 Urine-Protein Negative Negative Urine-RBC 20-40/HPF Urine-Specific [place] 1.020 1.000-1 .030 Urine-WBC 2-5/HPF Urobilinogen 1.0 [...] Status Pt. Type Provider Facility Loc./Unit Complaint [id number] 07/17/2019 10:16:00 07/17/2019 23:59 :00 DIS Outpatient [place] [id number] 04/05/2019 13:34:00 04/05/2019 23:59 :00 DIS Outpatient RezaUrmila [id number] 03/13/2019 11:40:00 03/22/2019 12:10 :00 DIS Inpatient JUJU TAVERAS [facility] [id number] 03/09/2019 15:43:00 03/13/2019 13:10 :00 DIS Inpatient [facility] [id number] 03/08/2019 12:09:00 03/08/2019 14:30 :00 DIS Outpatient CORTNEY CARUSO APRN [facility] ER [id number] 11/18/2018 16:10:00 11/18/2018 18:10: 00 DIS Outpatient Marcellus Taylor [facility] ER [id number] 07/27/2018 15:22:00 07/27/2018 17:10: 00 DIS Outpatient ALISCAROLYN [id number] 07/26/2018 17:47:00 07/26/2018 18:30: 00 DIS Outpatient Marcellus Taylor [id number] 07/24/2018 01:07:00 07/24/2018 02:24: 00 DIS Outpatient JEANETTE SANOTYO [facility] ER [id number] 05/25/2018 11:06:00 06/08/2018 15:14: 00 DIS Outpatient RezaUrmila [id number] 04/12/2018 18:45:00 04/17/2018 13:00: 00 DIS Inpatient [facility] [id number] 10/21/2017 12:44:00 10/28/2017 17:27: 00 DIS Inpatient [facility] enter MED-SURG [id number] 10/18/2017 19:04:00 10/21/2017 13:01: 00 DIS Inpatient [facility] enter ICU [id number] 10/11/2017 16:04:00 10/17/2017 13:23: 00 DIS Inpatient Yasmine Leivatoby Tapia enter MED-SURG [id number] 08/09/2019 10:33:00 Document Registration [id number] 07/05/2019 11:34:03 Document Registration [id number] 10/11/2017 16:56:37 Document Registration [id number] 07/24/2018 00:55:00 Document Registration [id number] 12/01/2018 11:50:00 23:59:59 CLS Outpatient TYRONE SMITH DO [facility] RAD CYST [id number] 11/15/2018 15:24:00 23:59:59 CLS Outpatient TYRONE SMITH DO [facility] RAD BACK PAIN [id number] 09/28/2018 14:00:00 09/28/2018 23:59: 59 CLS Outpatient URMILA REZA [facility] [id number] 06/20/2018 10:40:00 Document Registration
[2019-08-10] MEDS: D5 1/2 NS W/KCL 20 MEQ/L 1,000 ML IV SCH ×2 (08:44→15:50)
--- NOTE | 2019-08-10 09:08 | Diagnostic Imaging Report ---
PROCEDURE: CT abdomen and pelvis with contrast. TECHNIQUE: Multiple contiguous axial images were obtained through the abdomen and pelvis after administration of intravenous contrast. Auto Exposure Controls were utilized during the CT exam to meet ALARA standards for radiation dose reduction. INDICATION: Nausea and vomiting. COMPARISON: None available. FINDINGS: There is focal consolidation in the posterior segment of the left lower lobe. Scattered much smaller areas of consolidation are demonstrated in the right lower lobe, with possible tree-in-bud opacities noted in the right middle lobe. There is no pleural effusion. The visualized heart is normal in size. There is mild diffuse low attenuation of the hepatic parenchyma, likely reflecting hepatic steatosis. The gallbladder, spleen, pancreas and adrenal glands are unremarkable. A benign-appearing dystrophic calcification is demonstrated in the inferior spleen. The kidneys are symmetric in size and demonstrate normal enhancement, without evidence of renal calculus or hydronephrosis on either side. There is a subcentimeter focus of low-attenuation in the lower pole of the right kidney, which too small to characterize but likely represents a cyst. Adjacent cortical defect in the lower pole of the right kidney likely reflects area of scarring. No suspicious mass is demonstrated. There is no abnormality in the visualized ureters. Incidentally noted is a 7.7 x 8.4 x 10.0 cm cystic structure in the left retroperitoneum. This demonstrates no internal septations, appreciable enhancement or calcification. The small bowel and colon are normal in course and caliber, without evidence of wall thickening or obstruction. The appendix is normal. There is colonic diverticulosis, without evidence of acute diverticulitis. There is no pneumoperitoneum. No lymphadenopathy is appreciated. There is moderate calcified atherosclerotic plaque involving the abdominal aorta, without aneurysmal dilatation. The venous structures are not well evaluated on this exam due to poor contrast opacification. The abdominal wall is unremarkable. Marked multilevel degenerative changes involve the spine. The patient is status post L4-L5 fusion. There is mild anterolisthesis of L4 on L5. Interbody fusion device is noted at the L4-L5 level, with some bony fusion noted across the intervertebral disc space. No acute osseous abnormality is demonstrated. IMPRESSION: Moderate focal consolidation in the left lower lobe, with scattered areas of consolidation also noted in the right lung base. Findings are concerning for multifocal pneumonia. No acute abdominal or pelvic pathology is appreciated. There is no evidence of obstruction, inflammatory process involving the bowel, or pneumoperitoneum. Incidentally noted is a cystic structure in the left retroperitoneum, which measures up to 10 cm in greatest diameter. This is of uncertain etiology or clinical significance, and the chronicity of this is indeterminate without priors for comparison. This is favored to represent benign etiology such as a urinoma or lymphatic malformation, with other etiologies such as mucinous cystadenoma or cystic teratoma less likely. Recommend correlation with history/physical exam and any prior imaging that may have been performed. Other chronic and incidental findings are detailed above. Findings are in agreement with initial teleradiology report. Dictated by: Dictated on workstation # [id number]
[2019-08-10] MEDS ORDERED: polyethylene glycoL POWDER 17 GM (MIRALAX) PACK PO PRN (10:00)
[2019-08-10] MEDS ORDERED: MELATONIN 3 MG TABLET PO PRN (10:00)
[2019-08-10] MEDS ORDERED: ACETAMINOPHEN 325 MG TABLET PO PRN (10:00)
[2019-08-10] MEDS ORDERED: ANTACID SUSP 30 ML UDC (MYLANTA) PO PRN (10:00)
[2019-08-10] MEDS ORDERED: ONDANSETRON 4 MG (ZOFRAN) ORAL DISSOLVE TAB PO PRN (10:00)
[2019-08-10 10:16] VITALS: BP 145/93
--- NOTE | 2019-08-10 10:21 | Occ Therapy Progress Note ---
Therapy Progress Note OT orders received and chart reviewed. Pt is currently pending COVID-19 testing. OT will continue to monitor pt and initiate tx pending negative COVID test. LATHA CHAVEZ OT August 10, 2019 10:21
--- NOTE | 2019-08-10 11:02 | NUR ---
Received dietary consult for MST score. Note pt is currently PUI for COVID-19 test pending. Will monitor PO intake and reassess on 08/12. SRaegan Lamas MS, RD, LD
[2019-08-10] MEDS: ONDANSETRON 4 MG/2 ML (SDV) Z0FRAN IV PRN ×2 (11:10→19:29)
[2019-08-10] MEDS: inSUlin ASPART (NovoLOG) 1 UNIT/0.01 ML (CHARGE PER UNIT) SC SCH ×3 (11:15→23:04)
--- NOTE | 2019-08-10 11:51 | History & Physical-Hospitalist ---
History of Present Illness HPI/Chief Complaint Brooks Sanford is a 79-year-old male with past medical history of hypertension, BPH, atrial fibrillation on anticoagulation, who presented with nausea and vomiting. She reports that he is been having nausea and vomiting a couple times a week for about a year. He denies any known aggravating factors. He reports that he has had weight loss of about 50 pounds over the past year. He says it was intentional as he has cut out carbohydrates and has been exercising. He denies any abdominal pain. He denies any diarrhea. He says he has occasional constipation. He denies any fevers or chills. He denies any chest pain. He denies any shortness of breath. He has a chronic cough which is been present for a couple years and is unchanged. He says that he frequently falls at home. He has had home health past but does not currently have the services set up. He uses a walker that has a seat. He lives at home alone in [place]. Source: patient Exam Limitations: no limitations Date Seen 08/10/19 Time Seen by a Provider: 10:55 Attending Physician Kori Barney MD PCP Brooks Mills DO Referring Physician Date of Admission August 10, 2019 at 05:00 Home Medications & Allergies Home Medications Reviewed patient Home Medication Reconciliation performed by pharmacy medication reconciliations home service technician and/or nursing. Patients Allergies have been reviewed. Allergies Allergies Coded Allergies No Known Drug Allergies (Unverified08/10/19) Past Oaoacja-Tozutg-Xhmrzs Hx Past Med/Social Hx: Reviewed Nursing Past Med/Soc Hx, Reviewed and Corrections made Patient Social History Alcohol Use: Regular Use ("AT LEAST 2 HIGHBALLS EVERY NIGHT" ) Number of Drinks Today: 0 Recreational Drug Use: No Smoking Status: Former Smoker (QUIT 1974) Type Used: Pipe Recent Foreign Travel: No Contact w/other who traveled: No Recent Infectious Disease Expo: No Immunizations Up To Date Tetanus Booster (TDap): Less than 5yrs Pediatric: Yes Date of Pneumonia Vaccine: Jan 09, 2019 Past Medical History Surgeries: Orthopedic, Tonsillectomy Cardiac: Atrial Fibrillation, Hypertension Genitourinary: Prostate Problems Musculoskeletal: Chronic Back Pain History of Blood Disorders: No Review of Systems Constitutional: weight loss EENTM: no symptoms reported Respiratory: cough Cardiovascular: no symptoms reported Gastrointestinal: nausea, vomiting Genitourinary: no symptoms reported Musculoskeletal: no symptoms reported Skin: no symptoms reported Psychiatric/Neurological: No Symptoms Reported Physical Exam Physical Exam Vital Signs Vital Signs - First Documented 08/10/19 08/10/19 02:50 10:16 Temp 35.8 Pulse 98 Resp 20 B/P (MAP) 145/93 (110) Pulse Ox 95 FiO2 21 Capillary Refill : Greater Than 3 Seconds Height, Weight, BMI Height: '" Weight: lbs. oz. kg; 28.69 BMI Method: General Appearance: No Apparent Distress, WD/WN Neck: Normal Inspection, Supple Respiratory: Lungs Clear, Normal Breath Sounds, No Respiratory Distress Cardiovascular: No Murmur, Irregularly Irregular (Normal rate) Gastrointestinal: Normal Bowel Sounds, Non Tender, Soft Extremity: Normal Inspection, Non Tender, No Pedal Edema Neurologic/Psychiatric: Alert, Oriented x3, No Motor/Sensory Deficits, Normal Mood/Affect Skin: Normal Color, Warm/Dry Results Results/Procedures Labs Laboratory Tests 08/10/19 02:50 Patient resulted labs reviewed. Imaging: Reviewed Imaging Report Assessment/Plan Admission Diagnosis Nausea and vomiting Admission Status: Observation Assessment and Plan Nausea and vomiting Weight loss Chronic issue, vomiting 1-2 times daily for approximately 1 year Reports intentional weight loss of 50 pounds over the past year Antiemetics ordered Consider evaluation with EGD as outpatient Recent falls Debility PT/OT consulted Plan to set up home health care on discharge Concern for pneumonia Chest x-ray without consolidation Afebrile, normal white count Procalcitonin normal Discontinue antibiotics Hypertension Atrial fibrillation BPH Continue home meds DVT prophylaxis: Lovenox Diagnosis/Problems Diagnosis/Problems (1) Debility Status: Acute (2) History of recent fall Status: Acute (3) Nausea & vomiting Status: Acute Clinical Quality Measures DVT/VTE Risk/Contraindication: Risk Factor Score Per Nursin RFS Level Per Nursing on Admit: 4+=Very High KORI BARNEY MD August 10, 2019 11:51
[2019-08-10] MEDS ORDERED: RT-ALBUTEROL INHALER HFA (VENTOLIN HFA) 8 GM IH PRN (12:00)
[2019-08-10 12:38] VITALS: BP 124/77
--- NOTE | 2019-08-10 12:54 | NUR ---
CM/SS visited with the patient for social service consult. Plan: The patient will discharge home 08/10 with home health. Home Health: [facility]. The patient was provided with a patient preference form and chose [facility] as his first choice; however, this ss called to make a referral and they denied the patient due to past history of non-compliance and not staying home. CM/SS asked the patient for his second choice and he chose [facility]. CM/SS called and spoke with Haydee with the agency and made the referral. This ss faxed medical records thus far and informed her that the nurse will fax over the home health orders and face to face. She verbalized understanding. CM/SS left a note with the patients nurse to pass on during shift change about discharge plans and what was needed. She verbalized understanding. The patients physician was notified. No further needs at this time.
--- NOTE | 2019-08-10 13:24 | NUR ---
MARIO CAVANAUGH CALLED THIS RN BACK AFTER LEAVING MESSAGE FOR HIM. HE REPORTS THAT PT HAS STARTED DRINKING [id number] HEAVILY LAST COUPLE YEARS WHICH HAS MADE HIM FALL MORE. HE SAYS THAT HE ALSO HAS BEEN IN AND OUT OF NURSING HOMES RECENTLY WELL. THIS RN WILL LET DR BARNEY KNOW THIS INFO.
--- NOTE | 2019-08-10 14:00 | NUR ---
TOOK OVER CARE OF PT AND RECEIVED REPORT FROM CHITO PADRON
[2019-08-10] MEDS: RT-ALBUTEROL INHALER HFA (VENTOLIN HFA) 8 GM IH SCH ×2 (14:13→22:45)
--- NOTE | 2019-08-10 14:29 | Physical Therapy Evaluation ---
PT Evaluation-General Medical Diagnosis Admission Date August 10, 2019 at 05:00 Medical Diagnosis: pneumonia/N&V/a-fib Onset Date: August 10, 2019 Therapy Diagnosis Therapy Diagnosis: debility Precautions Precautions/Isolations: Droplet Isolation, Fall Prevention Weight Bear Status Right Lower Extremity: Right Weight Bearing/Tolerated Left Lower Extremity: Left Weight Bearing/Tolerated Referral Physician: Simona Reason for Referral: Evaluation/Treatment Medical History Pertinent Medical History: Atrial Fib, Alcoholism, [place], Neuropathy Current History ER secondary to N&V x 2 days/seen at [facility] 08/08 for respiratory infection and fall Reviewed History: Yes Social History Home: Single Level Current Living Status: Alone Prior Prior Level of Function SCALE: Activities may be completed with or without assistive devices. 3-Fqqtzufrki-bstlpyq completes the activity by him/herself with no assistance from a helper. 5-Set-up or Clean-up Assistance-helper sets up or cleans up; patient completes activity. Bath assists only prior to or following the activity. 4-Supervision or Touching Assistance-helper provides verbal cues and/or touching/steadying and/or contact guard assistance as patient completes activity. Assistance may be provided throughout the activity or intermittently. 3-Partial/Moderate Assistance-helper does LESS THAN HALF the effort. Bath lifts, holds or supports trunk or limbs, but provides less than half the effort. 2-Substantial/Maximal Assistance-helper does MORE THAN HALF the effort. Bath lifts or holds trunk or limbs and provides more than half the effort. 6-Qyzfaobxv-ulfzja does ALL the effort. Patient does none of the effort to complete the activity. Or, the assistance of 2 or more helpers is required for the patient to complete the activity. If activity was not attempted, code reason: 7-Patient Refused. 9-Not Applicable-not attempted and the patient did not perform the activity before the current illness, exacerbation or injury. 10-Not Attempted due to Environmental Limitations-(lack of equipment, weather restraints, etc.). 88-Not Attempted due to Medical Conditions or Safety Concerns. Bed Mobility: 6 Transfers (B,C,W/C): 6 Gait: 6 Stairs: 6 Indoor Mobility (Ambulation): Independent Stairs: Independent Prior Devices Use: Walker PT Evaluation-Current Subjective Patient agrees to PT. Pain Numeric Pain Scale: 0-No Pain Location: No Pain Reported Objective Patient Orientation: Normal For Age Attachments: IV ROM/Strength ROM Lower Extremities bilateral LE WFL Strength Lower Extremities 4/5 grossly bilateral LE Integumentary/Posture Integumentary refer to nursing notes Bowel Incontinence: No Bladder Incontinence: Yes Posture WFL Neuromuscular (Tone, Coordination, Reflexes) grossly intact Sensory Vision: Wears Glasses Hearing: Functional Sensation Right Lower Extremit: Impaired Sensation Left Lower Extremity: Impaired Transfers Roll Left to Right (QC): 6 Sit to Lying (QC): 6 Lying to Sitting/Side of Bed(Q: 6 Sit to Stand (QC): 6 Chair/Sqo-mp-Tnwhq Xfer(QC): 6 Gait Does the Patient Walk?: Yes Mode of Locomotion: Walk Anticipated Mode of Locomotion: Walk Walk 10 feet (QC): 5 Walk 50 ft with 2 Turns(QC): 5 Walk 150 ft (QC): 5 Distance: 300' Gait Assistive Device: FWW Comments/Gait Description steady,safe and functional Wheelchair Training Does the Pt Use a Wheelchair?: No Balance Sitting Static: Normal Sitting Dynamic: Normal Standing Static: Normal Standing Dynamic: Normal Assessment/Needs 79 y.o. male, will be seen short term by skilled PT to address functional mobility to ensure safe return to home or care facility at maximum LOF. Rehab Potential: Fair PT Half-Way Goals Half-Way Goals PT Dye Tub Operator Goals Time Frame: Aug 18, 2019 Roll Left & Right (QC): 6 Sit to Lying (QC): 6 Lying-Sitting on Side/Bed(QC): 6 Sit to Stand (QC): 6 Chair/Fib-nk-Tsmer Xfer(QC): 6 Toilet Transfer (QC): 6 Does the Patient Walk: Yes Walk 10 feet (QC): 6 Walk 50ft with 2 Turns (QC): 6 Walk 150 ft (QC): 6 PT Plan Treatment/Plan Treatment Plan: Continue Plan of Care Treatment Plan: Education, Functional Activity Jaye, Functional Strength, Gait, Safety, Therapeutic Exercise, Transfers Treatment Duration: Aug 18, 2019 Frequency: 6 times per week Estimated Hrs Per Day: .25 hour per day Patient and/or Family Agrees t: Yes Time/GCodes Time In: 1355 Time Out: 1412 Total Billed Treatment Time: 17 Total Billed Treatment 1 visit EVModC 17 min KELSEY GARDUNO PT August 10, 2019 14:29
--- NOTE | 2019-08-10 14:47 | Occupational Therapy Eval ---
OT Evaluation-General/PLF Medical Diagnosis Admission Date August 10, 2019 at 05:00 Medical Diagnosis: pneumonia/N&V/a-fib Onset Date: August 10, 2019 Therapy Diagnosis Therapy Diagnosis: impaired ADLs/functional mobility Precautions Precautions/Isolations: Droplet Isolation, Fall Prevention Referral Physician: Simona Referral Reason: Evaluation/Treatment Medical History Pertinent Medical History: Atrial Fib, Alcoholism, ID, Neuropathy Current History Per H&P: "Brooks Sanford is a 79-year-old male with past medical history of hypertension, BPH, atrial fibrillation on anticoagulation, who presented with nausea and vomiting. She reports that he is been having nausea and vomiting a couple times a week for about a year. He denies any known aggravating factors. He reports that he has had weight loss of about 50 pounds over the past year. He says it was intentional as he has cut out carbohydrates and has been exercising. He denies any abdominal pain. He denies any diarrhea. He says he has occasional constipation. He denies any fevers or chills. He denies any chest pain. He denies any shortness of breath. He has a chronic cough which is been present for a couple years and is unchanged. He says that he frequently falls at home. He has had home health past but does not currently have the services set up. He uses a walker that has a seat. He lives at home alone in [place]." Social History Home: Single Level Current Living Status: Alone Steps Inside Home: 1 (9 inch sunk-in living room) ADL-Prior Level of Function SCALE: Activities may be completed with or without assistive devices. 9-Jouoezgfzk-ridvlfu completes the activity by him/herself with no assistance from a helper. 5-Set-up or Clean-up Assistance-helper sets up or cleans up; patient completes activity. [place] assists only prior to or following the activity. 4-Supervision or Touching Assistance-helper provides verbal cues and/or touc haylee/steadying and/or contact guard assistance as patient completes activity. Assistance may be provided throughout the activity or intermittently. 3-Partial/Moderate Assistance-helper does LESS THAN HALF the effort. [place] lifts, holds or supports trunk or limbs, but provides less than half the effort. 2-Substantial/Maximal Assistance-helper does MORE THAN HALF the effort. [place] lifts or holds trunk or limbs and provides more than half the effort. 0-Gcupnwbkn-vsdvqn does ALL the effort. Patient does none of the effort to complete the activity. Or, the assistance of 2 or more helpers is required for the patient to complete the activity. If activity was not attempted, code reason: 7-Patient Refused. 9-Not Applicable-not attempted and the patient did not perform the activity before the current illness, exacerbation or injury. 10-Not Attempted due to Environmental Limitations-(lack of equipment, weather restraints, etc.). 88-Not Attempted due to Medical Conditions or Safety Concerns. ADL PLOF Comments Pt reports he lives alone and is independent with all ADLs. 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 He uses a 4WW within his house, a FWW in the community, and a SPC to get from car to the inside of stores. Once in a store he typically uses a motorized cart. He has both a walkin shower and a tub/shower with a bath bench at the tub. Self Care: Needed Some Help Functional Cognition: Independent DME/Equipment: Bath Bench, Shower, Tub/Shower DME/Equipment Comments FWW, 4WW, cane OT Current Status Subjective Pt seated in recliner, agreeable to OT evaluation. He did not verbalize any pain during tx. Pt reports he is hoping to d/c tomorrow. Current Glasses/Contacts: Yes Hearing Aids: No Dentures/Partials: No Hand Dominance: Right Upper Extremity ROM WFL, BUE shoulder flexion to approx 160 degrees, he is able to touch the back of his head with his hands. Upper Extremity Coordination WFL Upper Extremity Sensation Pt denies tingling/numbness BUE Upper Extremity Strength grossly 4/5 MMT Other Treatments Pt seated in recliner, agreeable to OT evaluation. OT educated pt on purpose and benefits of OT, he verbalized understanding. Pt provided information about PLOF and home set up, then participated in UE screen. Pt reports he feels like he would have no difficulties with ADLs upon returning home and feels like he is at his PLOF. When asked how many times he falls at home, he states "no more than usually", approx x1 a week but he feels like they are "controlled" falls. OT educated pt on benefits of OT to increase UE strength, functional mobility, and functional endurance with tasks. Post OT session, pt seated in recliner, call l ight in reach and all needs met. Education OT Patient Education: Correct positioning, Modified ADL techniques, Progress toward Goal/Update tx plan, Purpose of tx/functional activities Teaching Recipient: Patient Teaching Methods: Discussion Response to Teaching: Verbalize Understanding OT Personal Lines Underwriter Goals Assisted Goals Time Frame: Aug 17, 2019 Eating (QC): 6 Oral Hygiene (QC): 6 Toileting Hygiene (QC): 6 Shower/Bathe Self (QC): 6 Upper Body Dressing (QC): 6 Lower Body Dressing (QC): 6 On/Off Footwear (QC): 6 1=Demonstrate adherence to instructed precautions during ADL tasks. 2=Patient will verbalize/demonstrate understanding of assistive devices/modifications for ADL. 3=Patient will improve strength/tolerance for activity to enable patient to perform ADL's. OT Education/Plan Problem List/Assessment Assessment: Decreased Activ Tolerance, Impaired I ADL's, Impaired Self-Care Skills Discharge Recommendations Plan/Recommendations: Continue POC Therapy Discharge Recommendati: Home & Family Treatment Plan/Plan of Care Treatment,Training & Education: Yes Patient would benefit from OT for education, treatment and training to promote independence in ADL's, mobility, safety and/or upper extremity function for ADL's. Plan of Care: ADL Retraining, Functional Mobility, UE Funct Exercise/Act Treatment Duration: Aug 17, 2019 Frequency: 5 times per week Estimated Hrs Per Day: .25 hour per day Rehab Potential: Fair Time/GCodes Start Time: 14:30 Stop Time: 14:38 Total Time Billed (hr/min): 8 Billed Treatment Time [id number] ADDISON OT August 10, 2019 14:47
[2019-08-10] MEDS ORDERED: MULT-1136 PO (15:10)
[2019-08-10] MEDS ORDERED: OMEG-35 PO (15:10)
[2019-08-10] MEDS ORDERED: FOLI1TAB24 PO (15:11)
--- NOTE | 2019-08-10 15:12 | NUR ---
SPOKE WITH THE PT AND HE INDICATED I SHOULD CALL HIS NEPHEW AFSHAN SINCE HE TAKES CARE OF HIS MEDICATION. I CALLED AFSHAN AND GOT A MED LIST FROM [facility] (APPEARS TO HAVE THE SAME INFORMATION THE EXT MED HISTORY DOES) TO COMPLETE THE MED REC THE LAST TIME ALL OF HIS MEDICATIONS WERE FILLED WAS 05-10-2019 ALL FOR 30 DAYS SUPPLIES. WHEN I ASKED AFSHAN ABOUT THIS HE LET ME KNOW THE PT HAD BEEN AT [facility] FOR AROUND 100 DAYS RECENTLY AND BEFORE THAT HAD ALSO SPENT ANOTHER EXTENDED AMOUNT OF TIME THERE. AFSHAN SAID WHEN HE LEFT [facility] THEY GAVE HIM A STOCK OF MEDICATIONS AND BETWEEN THAT AND WHAT [facility] HAD FILLED THE PT HAS HAD MEDICATION TO LAST TIME, BUT HE DID INDICATE MEDS WERE RUNNING LOW AND WHENEVER THE PT WAS DISCHARGED HE WAS GOING TO REORDER MEDS IF HE NEEDS TO OTC MEDS: FISH OIL [facility]
[2019-08-10 16:16] VITALS: BP 126/84
[2019-08-10] MEDS ORDERED: TAMSULOSIN 0.4 MG (FLOMAX) CAP PO SCH (18:00)
[2019-08-10 19:17] VITALS: BP 135/85
--- NOTE | 2019-08-10 20:50 | NUR ---
PT ASKED FOR GABAPENTIN THAT HE USUALLY TAKES AT HOME. DR BARNEY CONTACTED, AND ORDERED TO RESTART HIS HOME MED THAT HAS BEEN REVIEWED Addendum: 08/11/19 at 0348 by LILIBETH CARLSON RN PT ASKED FOR GABAPENTIN THAT HE USUALLY TAKES AT HOME. DR BARNEY CONTACTED, AND ORDERED TO RESTART HIS GABAPENTIN THAT HAS BEEN REVIEWED
[2019-08-10] MEDS ORDERED: MIRTAZAPINE 15 MG (REMERON) TAB PO SCH (21:00)
[2019-08-10] MEDS: APIXABAN 5 MG (ELIQUIS) TABLET PO SCH (21:38)
[2019-08-10] MEDS: SENNOSIDES 8.6 MG (SENOKOT) TAB PO SCH (21:38)
[2019-08-10] MEDS: GABAPENTIN 300 MG (NEURONTIN) CAP PO SCH (21:38)
[2019-08-10] MEDS: DOCUSATE SODIUM 100 MG (COLACE) CAP PO SCH (21:38)
[2019-08-10] MEDS: meTOprolol TARTRATE 50 MG (LOPRESSOR) TAB PO SCH (21:39)
[2019-08-11] VITALS: BP 126/81
[2019-08-11] MEDS: D5 1/2 NS W/KCL 20 MEQ/L 1,000 ML IV SCH (00:11)
[2019-08-11] MEDS: RT-ALBUTEROL INHALER HFA (VENTOLIN HFA) 8 GM IH SCH ×2 (03:50→06:42)
[2019-08-11 04:00] VITALS: BP 145/94
[2019-08-11] MEDS: inSUlin ASPART (NovoLOG) 1 UNIT/0.01 ML (CHARGE PER UNIT) SC SCH ×2 (06:06→12:00)
[2019-08-11 06:57] LABS: BASOPHILS % (AUTO) 1 % (0-10); EOSINOPHILS # (AUTO) 0.1 10^3/uL (0.0-0.3); EOSINOPHILS % (AUTO) 2 % (0-10); HEMATOCRIT 43 % (40-54); HEMOGLOBIN 14.1 G/DL (13.3-17.7); LYMPHOCYTES # (AUTO) 1.5 X 10^3 (1.0-4.0); LYMPHOCYTES % (AUTO) 32 % (12-44); MEAN CORPUSCULAR HEMOGLOBIN 29 PG (25-34); MEAN CORPUSCULAR HGB CONC 33 G/DL (32-36); MEAN CORPUSCULAR VOLUME 90 FL (80-99); MEAN PLATELET VOLUME 9.1 FL (7.4-10.4); MONOCYTES # (AUTO) 0.7 X 10^3 (0.0-1.0); MONOCYTES % (AUTO) 15 % (0-12); NEUTROPHILS # (AUTO) 2.3 X 10^3 (1.8-7.8); NEUTROPHILS % (AUTO) 51 % (42-75); PLATELET COUNT 197 10^3/uL (130-400); RED CELL DISTRIBUTION WIDTH 14.8 % (10.0-14.5); WHITE BLOOD COUNT 4.5 10^3/uL (4.3-11.0)
[2019-08-11] MEDS ORDERED: VENlafaxine XR 75 MG (EFFEXOR XR) CAP PO SCH (07:00)
[2019-08-11 07:04] LABS: ALBUMIN 3.4 GM/DL (3.2-4.5); CHLORIDE 107 MMOL/L (98-107); POTASSIUM 4.1 MMOL/L (3.6-5.0); SODIUM 141 MMOL/L (135-145)
[2019-08-11 07:06] LABS: CALCIUM 8.9 MG/DL (8.5-10.1)
[2019-08-11 07:07] LABS: GLUCOSE 138 MG/DL (70-105); TOTAL PROTEIN 6.9 GM/DL (6.4-8.2)
[2019-08-11 07:08] LABS: CARBON DIOXIDE 22 MMOL/L (21-32)
[2019-08-11 07:09] LABS: BILIRUBIN,TOTAL 0.6 MG/DL (0.1-1.0)
[2019-08-11 07:10] LABS: ALKALINE PHOSPHATASE 67 U/L (40-136); CREATININE SERUM 0.92 MG/DL (0.60-1.30); GFR ESTIMATED > 60
[2019-08-11 07:11] LABS: BUN/CREATININE RATIO 5
[2019-08-11 07:13] LABS: ALANINE AMINOTRANSFERASE 10 U/L (0-55)
[2019-08-11 08:00] VITALS: BP 142/93
--- NOTE | 2019-08-11 08:29 | Physical Therapy Daily Note ---
PT Daily Note-Current Subjective Pt pleasant and agreeable to ambulation. Mental Status Patient Orientation: Confused Attachments: IV Transfers SCALE: Activities may be completed with or without assistive devices. 9-Oncuzrgseu-bhojpcs completes the activity by him/herself with no assistance from a helper. 5-Set-up or Clean-up Assistance-helper sets up or cleans up; patient completes a ctivity. [place] assists only prior to or following the activity. 4-Supervision or Touching Assistance-helper provides verbal cues and/or touching/steadying and/or contact guard assistance as patient completes activity. Assistance may be provided throughout the activity or intermittently. 3-Partial/Moderate Assistance-helper does LESS THAN HALF the effort. [place] lifts, holds or supports trunk or limbs, but provides less than half the effort. 2-Substantial/Maximal Assistance-helper does MORE THAN HALF the effort. [place] lifts or holds trunk or limbs and provides more than half the effort. 7-Addfoffme-qknxeq does ALL the effort. Patient does none of the effort to complete the activity. Or, the assistance of 2 or more helpers is required for the patient to complete the activity. If activity was not attempted, code reason: 7-Patient Refused. 9-Not Applicable-not attempted and the patient did not perform the activity before the current illness, exacerbation or injury. 10-Not Attempted due to Environmental Limitations-(lack of equipment, weather restraints, etc.). 88-Not Attempted due to Medical Conditions or Safety Concerns. Mod I with all bed mobility Weight Bearing Right Lower Extremity: Right Weight Bearing/Tolerated Left Lower Extremity: Left Weight Bearing/Tolerated Gait Training Gait Assistive Device: FWW Ambulate 500ft using FWW and CGA. Verbal cues for safety and walker use while in congested areas. Assessment Pt progressing with activity tolerance. He was winded post gait. Pt will benefit from continued PT to increase strength for DC to home. PT Senior Care Goals Pressure Tank Operator Goals PT Pressure Tank Operator Goals Time Frame: Aug 18, 2019 Roll Left & Right (QC): 6 Sit to Lying (QC): 6 Lying-Sitting on Side/Bed(QC): 6 Sit to Stand (QC): 6 Chair/Cta-ns-Xbtjr Xfer(QC): 6 Toilet Transfer (QC): 6 Does the Patient Walk: Yes Walk 10 feet (QC): 6 Walk 50ft with 2 Turns (QC): 6 Walk 150 ft (QC): 6 PT Plan Problem List Problem List: Activity Tolerance, Gait Treatment/Plan Treatment Plan: Continue Plan of Care Treatment Plan: Education, Functional Activity Jaye, Functional Strength, Gait, Safety, Therapeutic Exercise, Transfers Treatment Duration: Aug 18, 2019 Frequency: 6 times per week Estimated Hrs Per Day: .25 hour per day Patient and/or Family Agrees t: Yes Time/GCodes Time In: 809 Time Out: 824 Total Billed Treatment Time: 15 Total Billed Treatment visit, gait 15 min ANNI HAZEL PT August 11, 2019 08:29
[2019-08-11] MEDS ORDERED: AZITHROMYCIN 250 MG TAB (ZITHROMAX) PO SCH (09:00)
[2019-08-11] MEDS ORDERED: cefTRIAXone 1,000 MG/SWFI 10 ML IV PUSH IV SCH ×2 (09:00)
[2019-08-11] MEDS ORDERED: amLODIPine 5 MG (NORVASC) TAB PO SCH (09:00)
[2019-08-11] MEDS ORDERED: DIGOXIN 0.125 MG (LANOXIN) TAB PO SCH (09:00)
[2019-08-11] MEDS ORDERED: FINASTERIDE (PROSCAR) 5 MG TAB PO SCH (09:00)
[2019-08-11] MEDS: APIXABAN 5 MG (ELIQUIS) TABLET PO SCH (09:32)
[2019-08-11] MEDS: SENNOSIDES 8.6 MG (SENOKOT) TAB PO SCH (09:32)
[2019-08-11] MEDS: meTOprolol TARTRATE 50 MG (LOPRESSOR) TAB PO SCH (09:33)
[2019-08-11] MEDS: DOCUSATE SODIUM 100 MG (COLACE) CAP PO SCH (09:33)
[2019-08-11] MEDS: GABAPENTIN 300 MG (NEURONTIN) CAP PO SCH (09:33)
--- NOTE | 2019-08-11 09:40 | Discharge Summary ---
Discharge Summary Reconcile Patient Problems Problems Reviewed?: Yes Instructions for Patient Via [facility], Assessment/Instructions take medications as prescribed. Follow up with Dr. Dunlap in about 3 weeks. Physician to follow Patient: Lina Discharge Diet for Home: Cardiac Diet Hospital Course Date of Admission: August 10, 2019 at 05:00 Admission Diagnosis : Nausea and vomiting Family Physician/Provider: Brooks Mills DO Date of Discharge: 08/11/19 Discharge Diagnosis: Nausea and vomiting, weight loss, debility Hospital Course: Brooks Sanford is a 79-year-old male who was admitted after having recent falls at home. He reports that he was feeling unstable. He uses a walker with a chair. He has had issues with episodes of nausea and vomiting weekly for the past year. He reports weight loss of about 50 pounds over the past year which she attributes to diet and exercise. Nevertheless, it may be worth an endoscopic evaluation for further assessment as an outpatient. He had no episodes of nausea or vomiting during his hospitalization. He has a history of chronic atrial fibrillation and previously followed with Dr. Carrasco in [place]. He says that he would like to establish with someone a little closer to home. We made a follow-up appointment for him with Dr. Dunlap in about 3 weeks. He was set up with home health care for ongoing therapies and nursing care in his home. He should follow-up with Dr. Mills in about a week. Labs and Pending Lab Test: Laboratory Tests 08/10/19 11:15: Glucometer 171H 08/10/19 15:34: Glucometer 152H 08/10/19 21:17: Glucometer 145H 08/11/19 05:57: Glucometer 134H 08/11/19 06:31: White Blood Count 4.5, Red Blood Count 4.81, Hemoglobin 14.1, Hematocrit 43, Mean Corpuscular Volume 90, Mean Corpuscular Hemoglobin 29, Mean Corpuscular Hemoglobin Concent 33, Red Cell Distribution Width 14.8H, Platelet Count 197, Mean Platelet Volume 9.1, Neutrophils (%) (Auto) 51, Lymphocytes (%) (Auto) 32, Monocytes (%) (Auto) 15H, Eosinophils (%) (Auto) 2, Basophils (%) (Auto) 1, Neutrophils # (Auto) 2.3, Lymphocytes # (Auto) 1.5, Monocytes # (Auto) 0.7, Eosinophils # (Auto) 0.1, Basophils # (Auto) 0.0, Sodium Level 141, Potassium Level 4.1, Chloride Level 107, Carbon Dioxide Level 22, Anion Gap 12, Blood Urea Nitrogen 5L, Creatinine 0.92, Estimat Glomerular Filtration Rate > 60, BUN/Creatinine Ratio 5, Glucose Level 138H, Calcium Level 8.9, Corrected Calcium 9.4, Total Bilirubin 0.6, Aspartate Amino Transf (AST/SGOT) 22, Alanine Aminotransferase (ALT/SGPT) 10, Alkaline Phosphatase 67, Total Protein 6.9, Albumin 3.4, Procalcitonin 0.03 Home Meds Active Reported Folic Acid 1 Mg Tablet 1 Mg PO DAILY Multivitamin 1 Each Tablet 1 Each PO DAILY Fish Oil 1,000 mg Softgel ([place]-3/Dha/Epa/Fish Oil) 1 Each Capsule 1 Each PO DAILY Flomax (Tamsulosin HCl) 0.4 Mg Cap 0.4 Mg PO DAILY Neurontin (Gabapentin) 300 Mg Capsule 300 Mg PO TID Eliquis (Apixaban) 5 Mg Tablet 5 Mg PO 1200,1800 TAKES TWICE DAILY @ 1200&1800 Venlafaxine HCl ER (Venlafaxine HCl) 75 Mg Cap.er.24h 150 Mg PO DAILY Finasteride 5 Mg Tablet 5 Mg PO 1200 Amlodipine Besylate 5 Mg Tablet 5 Mg PO DAILY Metoprolol Tartrate 50 Mg Tablet 50 Mg PO 1200,1800 TAKES TWICE DAILY @1200&1800 Verapamil HCl 80 Mg Tablet 80 Mg PO 1200,1800 TAKES TWICE DAILY @1200&1800 Digoxin 125 Mcg Tablet 125 Mcg PO DAILY Cefdinir 300 Mg Capsule 300 Mg PO BID 10 Days FILLED AND PICKED UP ON 08-09-2019 #20 DAY SUPPLY- HAS NOT BEEN STARTED Patient Allergies: Coded Allergies: No Known Drug Allergies (Unverified , 08/10/19) Home Health Need/Face to Face Date of Face to Face: August 11, 2019 Clinical Findings: Instability, Muscle weakness, Unsteady gait I have seen Pt fylc-gk-navg: Yes Discharged To: Home Diagnosis/Conditions: debility, recent falls Problems/Diagnosis/Condition: (1) Debility (2) Nausea & vomiting (3) History of recent fall Patient is Homebound due to: [place]ckenzie fall risk due to instabilty, Muscle weakness Homebound Status Due to the above stated illness, injury or surgical procedure (medical condition or diagnosis) and associated clinical findings, the patient is homebound because of his/her inability to leave home except with aid of a supportive device and/or person AND leaving the home requires a considerable and taxing effort or is medically contraindicated. Pt req the following assistanc: Aid of another person, Walker Home Health Nursing Orders Home Health Services Order: Nursing Services, Patrol Police Sergeant-Evaluate & Treat, Physical Therapy-Evaluate & Treat Home Health Infusion Therapy Line Start Date: August 10, 2019 Therapy Orders Therapy Orders: OT (must have SN or PT order), Physical Therapy Therapy Specific Orders: Eval assistive deivces, Teach enviro modifications/safety, Gait training, Increase strength/endurance Certify Stmt I certify that this patient is under my care and that I, a nurse practitioner or a physician; a child welfare assistant working with me, had a face to face encounter that - meets the physician face to face encounter requirements with this patient as dated. Discharge Physical Exam General: Alert, Oriented X3, Cooperative, No Acute Distress HEENT: Atraumatic, PERRLA, EOMI, Mucous Memb Moist/[place] Lungs: Clear to Auscultation, Normal Air Movement Heart: Regular Rate (irregularly irregular rhythm) Abdomen: Normal Bowel Sounds, Soft, No Tenderness Extremities: No Edema, No Tenderness/Swelling Skin: No Rashes, No Significant Lesion Neuro: Normal Speech Psych/Mental Status: Mental Status NL, Mood NL JENIFER BARNEY MD August 11, 2019 09:39
[2019-08-11] MEDS ORDERED: RT-ALBUINH INH (11:36)
--- NOTE | 2019-08-11 11:39 | Consultation-Cardiology ---
HPI-Cardiology Cardiology Consultation Date of Consultation 08/11/19 Date of Admission Time Seen by Provider: 11:33 Indication: atrial fibrillation HPI 79 years old gentleman with history of atrial fibrillation, hypertension, has been having nausea and vomiting, admitted with questionable left lower lobe infiltrate. Currently feeling better still having significant dry cough. No chest pain. No palpitation, reported that he had history of paroxysmal atrial fibrillation. Has been compliant with medication taking oral anticoagulation. On my evaluation patient expressed that he is ready to go home, denied any active pain but still having significant cough nonproductive that has been chronic Home Medications & Allergies Allergies: Coded Allergies: No Known Drug Allergies (Unverified , 08/10/19) Home Medication List Reviewed: Yes EUZ-Orerqx-Vbedyl Hx Patient Social History Marital Status: Employed/Student: retired Alcohol Use: Regular Use ("AT LEAST 2 HIGHBALLS EVERY NIGHT" ) Recreational Drug Use: No Smoking Status: Former Smoker (QUIT 1974) Type Used: Pipe Recent Foreign Travel: No Recent Infectious Disease Expo: No Immunizations Up To Date Tetanus Booster (TDap): Less than 5yrs Date of Pneumonia Vaccine: Jan 09, 2019 Past Medical History Discussed below Family Medical History Family Medical Hx Noncontributory Review of Systems-General Review of Systems Constitutional: see HPI, malaise, weight loss EENTM: see HPI, no symptoms reported Respiratory: see HPI, cough; No dyspnea on exertion, No hemoptysis, No orthopnea, No phlegm, No short of breath, No stridor, No wheezing, No other Cardiovascular: see HPI; No chest pain, No edema, No Hx of Intervention, No palpitations, No syncope, No vascular heart diseas, No other Gastrointestinal: see HPI, nausea, vomiting Genitourinary: no symptoms reported, see HPI Musculoskeletal: no symptoms reported, see HPI Skin: no symptoms reported, see HPI Psychiatric/Neurological: No Symptoms Reported, See HPI Reviewed Test Results Reviewed Test Results Lab Laboratory Tests Test 08/10/19 15:34 08/10/19 21:17 08/11/19 05:57 08/11/19 06:31 Range/Units Glucometer 152 H 145 H 134 H 70-110 MG/DL White Blood Count 4.5 4.3-11.0 10^3/uL Red Blood Count 4.81 4.35-5.85 10^6/uL Hemoglobin 14.1 13.3-17.7 G/DL Hematocrit 43 40-54 % Mean Corpuscular Volume 90 80-99 FL Mean Corpuscular Hemoglobin 29 25-34 PG Mean Corpuscular Hemoglobin Concent 33 32-36 G/DL Red Cell Distribution Width 14.8 H 10.0-14.5 % Platelet Count 197 130-400 10^3/uL Mean Platelet Volume 9.1 7.4-10.4 FL Neutrophils (%) (Auto) 51 42-75 % Lymphocytes (%) (Auto) 32 12-44 % Monocytes (%) (Auto) 15 H 0-12 % Eosinophils (%) (Auto) 2 0-10 % Basophils (%) (Auto) 1 0-10 % Neutrophils # (Auto) 2.3 1.8-7.8 X 10^3 Lymphocytes # (Auto) 1.5 1.0-4.0 X 10^3 Monocytes # (Auto) 0.7 0.0-1.0 X 10^3 Eosinophils # (Auto) 0.1 0.0-0.3 10^3/uL Basophils # (Auto) 0.0 0.0-0.1 10^3/uL Sodium Level 141 135-145 MMOL/L Potassium Level 4.1 3.6-5.0 MMOL/L Chloride Level 107 98-107 MMOL/L Carbon Dioxide Level 22 21-32 MMOL/L Anion Gap 12 5-14 MMOL/L Blood Urea Nitrogen 5 L 7-18 MG/DL Creatinine 0.92 0.60-1.30 MG/DL Estimat Glomerular Filtration Rate > 60 BUN/Creatinine Ratio 5 Glucose Level 138 H 70-105 MG/DL Calcium Level 8.9 8.5-10.1 MG/DL Corrected Calcium 9.4 8.5-10.1 MG/DL Total Bilirubin 0.6 0.1-1.0 MG/DL Aspartate Amino Transf (AST/SGOT) 22 5-34 U/L Alanine Aminotransferase (ALT/SGPT) 10 0-55 U/L Alkaline Phosphatase 67 40-136 U/L Total Protein 6.9 6.4-8.2 GM/DL Albumin 3.4 3.2-4.5 GM/DL Procalcitonin 0.03 <0.10 NG/ML Physical Exam Physical Exam Vital Signs Vital Signs - First Documented 08/10/19 08/10/19 02:50 10:16 Temp 35.8 Pulse 98 Resp 20 B/P (MAP) 145/93 (110) Pulse Ox 95 FiO2 21 Capillary Refill : Greater Than 3 Seconds Height, Weight, BMI Height: '" Weight: lbs. oz. kg; 28.69 BMI Method: General Appearance: No Apparent Distress, WD/WN Neck: Normal Inspection, Supple Respiratory: Lungs Clear, Normal Breath Sounds, No Respiratory Distress Cardiovascular: No Murmur, Irregularly Irregular (Normal rate) Gastrointestinal: Normal Bowel Sounds, Non Tender, Soft Extremity: Normal Inspection, Non Tender, No Pedal Edema Neurologic/Psychiatric: Alert, Oriented x3, No Motor/Sensory Deficits, Normal Mood/Affect Skin: Normal Color, Warm/Dry A/P-Cardiology Admission Diagnosis Nausea and vomiting Paroxysmal atrial fibrillation Cough and dyspnea Debility Assessment/Plan Nausea and vomiting, reporting improvement at this time, feeling better. Managed by primary care physician Paroxysmal atrial fibrillation, appear to be currently in atrial fibrillation with a controlled rate, maintained on metoprolol, verapamil and digoxin. Heart rate is well-controlled. Continue on current medication monitor and continue on oral anticoagulation to reduce the risk of stroke, planning to evaluate 2-D echocardiogram Questionable coronary artery disease, patient did not have any symptoms, having arrhythmia, last workup was done about 3 years ago in [place], recommend evaluating stress test as an outpatient Chronic cough, reporting persistent cough for the past year. Could be reactive airway disease I will evaluate his response to bronchodilator. Hypertension, controlled on current medication, continue to monitor Generalized weakness and debility. Managed by primary care team Clinical Quality Measures DVT/VTE Risk/Contraindication: Risk Factor Score Per Nursin RFS Level Per Nursing on Admit: 4+=Very High THOR LINDSAY MD August 11, 2019 11:38 am
[2019-08-11] MEDS ORDERED: RT-ALBUTEROL INHALER HFA (VENTOLIN HFA) 8 GM IH PRN ×2 (11:45)
[2019-08-11 12:00] VITALS: BP 129/86
--- NOTE | 2019-08-11 13:00 | NUR ---
DISCHARGE INSTRUCTION GIVEN, VERBALIZED UNDERSTANDING, DISCHARGE INSTRUCTIONS FAXED TO [facility] DC, IV DC, SITE WITHOUT REDNESS OR SWELLING, DENIES PAIN OR SOB
[2019-08-11 13:15] VITALS: BP 129/86
[2019-08-13 11:33] LABS: PARAINFLU 1 PCR Not Detected (Not Detected); PARAINFLU 2 PCR Not Detected (Not Detected)
--- NOTE | 2019-08-14 21:51 | Physician Query Clarification ---
ANNA CHOUDHURY 08/14/19 2151: [id number] Principal Diagnosis Principal Diagnosis Document Diagnosis QUESTION: Please specify the condition(s) that was chiefly responsible for oc casioning the admission to the hospital after study/evaluation based on your medical judgment. Can Handler Note Can Handler Note Please remember a lack of response to the above will prompt a phone page by CDI/coding staff. In responding to this query, please exercise your independent professional judgment. The purpose of this communication is to more accurately reflect the complexity of your patients condition. The fact that a question is asked does not imply that any particular answer is desired or expected. Thank you for your timely response to this clarification. Requestors name: Anna THIS PHYSICIAN QUERY FORM IS A PERMANENT PART OF THE MEDICAL RECORD JENIFER BARNEY MD 08/21/19 1632: PQD17 Principal Diagnosis Question Chief Reason for Admission Aft: Intractable nausea and vomiting ANNA CHOUDHURY Aug 14, 2019 21:51 JENIFER BARNEY MD Aug 21, 2019 16:32
== END 2019-08-11 13:15 | disposition home health service (06) | DRG 392 ==
LOC: EDUNIT# 02:36 → ER 02:38 → 4TH 05:00
PROVIDERS: ADMIT Internal Medicine; ATTEND Internal Medicine
DX: R11.2 Nausea with vomiting, unspecified (principal); I48.0 Paroxysmal atrial fibrillation; I10 Essential (primary) hypertension; N40.0 Benign prostatic hyperplasia without lower urinary tract symptoms; M54.9 Dorsalgia, unspecified; G89.29 Other chronic pain; R63.4 Abnormal weight loss; R53.81 Other malaise; R53.83 Other fatigue; R05 Cough; I08.2 Rheumatic disorders of both aortic and tricuspid valves; R29.6 Repeated falls; Z87.891 Personal history of nicotine dependence; Z79.01 Long term (current) use of anticoagulants; Z20.828 Contact with and (suspected) exposure to other viral communicable diseases
CPT/HCPCS: 36415; 71045; 74177; 80053; 80162; 81000; 82150; 82962; 83605; 83615; 83690; 83735; 84145; 84484; 85025; 85379; 85610; 85652; 85730; 86141; 87040; 87631; 87635; 87798; 93005; 93041; 93306; 94640; 96361; 96372; 96374; 96375

== ENCOUNTER 2019-10-10 11:20 | Emergency (ER) | payer MEDICARE, OTHER ==
[~2019-10-10] VITALS: Ht 177 cm; Wt 90.7 kg
[~2019-10-10 11:20] MED LIST: AMLO5TAB9 PO; APIX5TAB PO; CEFD300C3 PO; DIGO125T3 PO; FINA5TAB6 PO; FOLI1TAB24 PO; GABA300C PO; LACT10SO33; METO50TA15 PO; MIRT15TA6; MULT-1136 PO; OMEG-35 PO; RT-ALBUINH INH; TMSL.4C PO; VENL75CA93 PO; VERA80TA4 PO
--- NOTE | 2019-10-10 11:28 | ED GI ---
General Source of Information: Patient, EMS Exam Limitations: No Limitations History of Present Illness Date Seen by Provider: Oct 10, 2019 Time Seen by Provider: 11:26 Initial Comments 79-year-old male presents with stomachache and "acid stomach" patient reports his been going on for a couple days. The hasn't wanted to drink myself last couple days. He denies any nausea vomiting, constipation, diarrhea, black tarry stools, bloody stool. Reports that sometimes he gets worse after he eats. He does not take anything for acid reflux. He does not have any cough, fever, chills. He reports he just doesn't feel well. Allergies and Home Medications Allergies Coded Allergies: No Known Drug Allergies (Unverified , 08/10/19) Home Medications Albuterol Sulfate 1 Puff Puff, 2 PUFF INH Q4H 1 PUFF = 90 MCG Prescribed by: THOR LINDSAY on 08/11/19 1136 Amlodipine Besylate 5 Mg Tablet, 5 MG PO DAILY, (Reported) Apixaban 5 Mg Tablet, 5 MG PO 1200,1800, (Reported) TAKES TWICE DAILY @ 1200&1800 Cefdinir 300 Mg Capsule, 300 MG PO BID Prescribed by: JENIFER BARNEY on 09/03/19 1138 Digoxin 125 Mcg Tablet, 125 MCG PO DAILY, (Reported) Finasteride 5 Mg Tablet, 5 MG PO 1200, (Reported) Folic Acid 1 Mg Tablet, 1 MG PO DAILY, (Reported) Gabapentin 300 Mg Capsule, 300 MG PO TID, (Reported) Metoprolol Tartrate 50 Mg Tablet, 50 MG PO 1200,1800, (Reported) TAKES TWICE DAILY @1200&1800 Multivitamin 1 Each Tablet, 1 EACH PO DAILY, (Reported) [place]-3/Dha/Epa/Fish Oil 1 Each Capsule, 1 EACH PO DAILY, (Reported) Tamsulosin HCl 0.4 Mg Cap, 0.4 MG PO DAILY, (Reported) Venlafaxine HCl 75 Mg Cap.er.24h, 150 MG PO DAILY, (Reported) Verapamil HCl 80 Mg Tablet, 80 MG PO 1200,1800, (Reported) TAKES TWICE DAILY @1200&1800 Patient Home Medication List Home Medication List Reviewed: Yes Review of Systems Review of Systems Constitutional: No chills, No fever; malaise Respiratory: Denies Cough, Denies Shortness of Air Gastrointestinal: See HPI; Denies Nausea, Denies Vomiting Genitourinary: No Symptoms Reported Musculoskeletal: no symptoms reported Skin: no symptoms reported Psychiatric/Neurological: No Symptoms Reported Endocrine: No Symptoms Reported Past Aslxglt-Nolmzo-Yvofap Hx Past Med/Social Hx: Reviewed Nursing Past Med/Soc Hx Patient Social History Type Used: Pipe Immunizations Up To Date Tetanus Booster (TDap): Less than 5yrs PED Vaccines UTD: Yes Date of Pneumonia Vaccine: Jan 09, 2019 Past Medical History Surgeries: Yes (BACK SURGERY-DR. SMITH) Orthopedic, Tonsillectomy Respiratory: No Cardiac: Yes Atrial Fibrillation, Hypertension Neurological: No (? NEUROPATHY OR RESTLESS LEGS ? ) Genitourinary: Yes (PROSTATE PROBLEMS PER MEDICATION LIST-FLOMAX AND FINASTERIDE) Prostate Problems, Bladder Infection Gastrointestinal: No Gastrointestinal Bleed Musculoskeletal: Yes (S/P BACK SURGERY) Chronic Back Pain Endocrine: No HEENT: No Cancer: No Psychosocial: Yes (ON EFFEXOR--UNKNOWN DX ) Integumentary: No Blood Disorders: No Physical Exam Vital Signs Vital Signs - First Documented 10/10/19 11:20 Temp 37.0 Pulse 116 Resp 16 B/P (MAP) 153/120 (131) Pulse Ox 95 O2 Delivery Room Air Capillary Refill : Height/Weight/BMI Height: '" Weight: lbs. oz. kg; 29.45 BMI Method: General Appearance: WD/WN, no apparent distress Neck: full range of motion, supple Respiratory: lungs clear, normal breath sounds Cardiovascular: normal peripheral pulses, regular rate, rhythm Gastrointestinal: soft, tenderness (mild bilateral lower quadrant, suprapubic) Extremities: normal range of motion, normal inspection Neurologic/Psychiatric: [employer]ending [employer] supervisor II-XII nml as tested, alert, normal mood/affect, oriented x 3 Skin: normal color, warm/dry Progress/Results/Core Measures Results/Orders Lab Results Laboratory Tests Test 10/10/19 11:30 10/10/19 12:56 Range/Units White Blood Count 5.9 4.3-11.0 10^3/uL Red Blood Count 5.08 4.35-5.85 10^6/uL Hemoglobin 15.7 13.3-17.7 G/DL Hematocrit 44 40-54 % Mean Corpuscular Volume 86 80-99 FL Mean Corpuscular Hemoglobin 31 25-34 PG Mean Corpuscular Hemoglobin Concent 36 32-36 G/DL Red Cell Distribution Width 14.4 10.0-14.5 % Platelet Count 138 130-400 10^3/uL Mean Platelet Volume 9.7 7.4-10.4 FL Neutrophils (%) (Auto) 66 42-75 % Lymphocytes (%) (Auto) 14 12-44 % Monocytes (%) (Auto) 19 H 0-12 % Eosinophils (%) (Auto) 0 0-10 % Basophils (%) (Auto) 0 0-10 % Neutrophils # (Auto) 3.9 1.8-7.8 X 10^3 Lymphocytes # (Auto) 0.9 L 1.0-4.0 X 10^3 Monocytes # (Auto) 1.1 H 0.0-1.0 X 10^3 Eosinophils # (Auto) 0.0 0.0-0.3 10^3/uL Basophils # (Auto) 0.0 0.0-0.1 10^3/uL Neutrophils % (Manual) 71 % Lymphocytes % (Manual) 14 % Monocytes % (Manual) 14 % Basophils % (Manual) 1 % Blood Morphology Comment NORMAL Sodium Level 141 135-145 MMOL/L Potassium Level 3.8 3.6-5.0 MMOL/L Chloride Level 102 98-107 MMOL/L Carbon Dioxide Level 26 21-32 MMOL/L Anion Gap 13 5-14 MMOL/L Blood Urea Nitrogen 6 L 7-18 MG/DL Creatinine 0.93 0.60-1.30 MG/DL Estimat Glomerular Filtration Rate > 60 BUN/Creatinine Ratio 6 Glucose Level 150 H 70-105 MG/DL Calcium Level 8.4 L 8.5-10.1 MG/DL Corrected Calcium 8.4 L 8.5-10.1 MG/DL Total Bilirubin 1.7 H 0.1-1.0 MG/DL Aspartate Amino Transf (AST/SGOT) 30 5-34 U/L Alanine Aminotransferase (ALT/SGPT) 14 0-55 U/L Alkaline Phosphatase 75 40-136 U/L Total Protein 7.2 6.4-8.2 GM/DL Albumin 4.0 3.2-4.5 GM/DL Lipase 15 8-78 U/L Urine Color ORANGE Urine Clarity CLEAR Urine pH 8.0 5-9 Urine Specific [place] 1.020 1.016-1.022 Urine Protein 2+ H NEGATIVE Urine Glucose (UA) NEGATIVE NEGATIVE Urine Ketones NEGATIVE NEGATIVE Urine Nitrite NEGATIVE NEGATIVE Urine Bilirubin NEGATIVE NEGATIVE Urine Urobilinogen 2.0 < = 1.0 MG/DL Urine Leukocyte Esterase NEGATIVE NEGATIVE Urine RBC (Auto) TRACE-I NEGATIVE Urine RBC 2-5 H /HPF Urine WBC NONE /HPF Urine Crystals NONE /LPF Urine Bacteria NEGATIVE /HPF Urine Casts PRESENT /LPF Urine Hyaline Casts 5-10 H /LPF Urine Mucus SMALL H /LPF Urine Culture Indicated NO My Orders Orders - VICENTE ANDREA DO Cbc With Automated Diff (10/10/19 11:29) Comprehensive Metabolic Panel (10/10/19 11:29) Lipase (10/10/19 11:29) Ua Culture If Indicated (10/10/19 11:29) Acute Abd Series (10/10/19 11:29) Famotidine Injection (Pepcid Injection) (10/10/19 11:29) Manual Differential (10/10/19 11:30) Vital Signs/I&O 10/10/19 11:20 Temp 37.0 Pulse 116 Resp 16 B/P (MAP) 153/120 (131) Pulse Ox 95 O2 Delivery Room Air Progress Progress Note : Time: 13:15 Progress Note Patient's symptoms resolved following the Pepcid. Patient symptoms were very consistent with esophageal reflux. No acute finding on x-ray or labs. I encouraged patient to start Pepcid twice daily, follow-up with primary care provider. He will be discharged home in stable condition Departure Impression Primary Impression: Gastroesophageal reflux Qualified Codes: K21.9 - Gastro-esophageal reflux disease without esophagitis Disposition: 01 HOME, SELF-CARE Condition: Stable Departure-Patient Inst. Referrals: AMERICA DARNELL DO (PCP/Family) Primary Care Physician Patient Instructions: Gastritis (DC), Acid Reflux and Gastroesophageal Reflux Disease in Adults Add. Discharge Instructions: Start Pepcid twice daily as directed on package Follow up with your primary care provider in 3-4 days VICENTE ANDREA DO Oct 10, 2019 11:28
[2019-10-10] MEDS ORDERED: FAMOTIDINE 20MG/2ML IV (PEPCID) IV STA (11:29)
--- NOTE | 2019-10-10 11:30 | NUR ---
PT CAME WITH A 20G IN HIS RIGHT FOREARM ET IV WILL NOT DRAW BLOOD OR FLUSH. IV DC.
[2019-10-10 11:36] LABS: BASOPHILS % (AUTO) 0 % (0-10); EOSINOPHILS % (AUTO) 0 % (0-10); HEMATOCRIT 44 % (40-54); HEMOGLOBIN 15.7 G/DL (13.3-17.7); LYMPHOCYTES # (AUTO) 0.9 X 10^3 (1.0-4.0); LYMPHOCYTES % (AUTO) 14 % (12-44); MEAN CORPUSCULAR HEMOGLOBIN 31 PG (25-34); MEAN CORPUSCULAR HGB CONC 36 G/DL (32-36); MEAN CORPUSCULAR VOLUME 86 FL (80-99); MEAN PLATELET VOLUME 9.7 FL (7.4-10.4); MONOCYTES # (AUTO) 1.1 X 10^3 (0.0-1.0); MONOCYTES % (AUTO) 19 % (0-12); NEUTROPHILS # (AUTO) 3.9 X 10^3 (1.8-7.8); NEUTROPHILS % (AUTO) 66 % (42-75); PLATELET COUNT 138 10^3/uL (130-400); RED CELL DISTRIBUTION WIDTH 14.4 % (10.0-14.5); WHITE BLOOD COUNT 5.9 10^3/uL (4.3-11.0)
[2019-10-10 11:44] LABS: CHLORIDE 102 MMOL/L (98-107); POTASSIUM 3.8 MMOL/L (3.6-5.0); SODIUM 141 MMOL/L (135-145)
[2019-10-10 11:45] LABS: CALCIUM 8.4 MG/DL (8.5-10.1)
[2019-10-10 11:46] LABS: GLUCOSE 150 MG/DL (70-105); TOTAL PROTEIN 7.2 GM/DL (6.4-8.2)
[2019-10-10 11:47] LABS: CARBON DIOXIDE 26 MMOL/L (21-32)
[2019-10-10 11:48] LABS: BILIRUBIN,TOTAL 1.7 MG/DL (0.1-1.0)
[2019-10-10 11:50] LABS: ALKALINE PHOSPHATASE 75 U/L (40-136); CREATININE SERUM 0.93 MG/DL (0.60-1.30); GFR ESTIMATED > 60
[2019-10-10 11:51] LABS: BUN/CREATININE RATIO 6
[2019-10-10 11:53] LABS: ALANINE AMINOTRANSFERASE 14 U/L (0-55); LIPASE 15 U/L (8-78)
[2019-10-10 12:02] LABS: BASOPHILS % (MANUAL) 1 %; LYMPHOCYTES % (MANUAL) 14 %; MONOCYTES % (MANUAL) 14 %; NEUTROPHILS % (MANUAL) 71 %; RBC MORPH NORMAL
--- NOTE | 2019-10-10 12:19 | Diagnostic Imaging Report ---
EXAMINATION: Acute abdomen series at 11:58 a.m. INDICATION: Abdominal pain. FINDINGS: The accompanying erect PA chest shows the heart size to be within normal limits and stable when compared to the prior exam of 09/03/2019. The ectatic thoracic aorta seen previously is again visualized and no different. The lungs are generally clear. The mediastinum is not widened. The osseous structures are intact. Supine and erect views of the abdomen were obtained. There is gas in both the large and small bowel in a nonspecific fashion. This appearance is similar to the CT abdomen/pelvis exam of 08/10/2019. There is no mass or organomegaly appreciated. The osseous structures are intact. The postsurgical changes involving the lower lumbar spine seen previously are again evident and do not appear to have changed significantly. IMPRESSION: The bowel gas pattern is nonspecific. There is no acute abnormality identified. Dictated by: Dictated on workstation # [id number]
--- NOTE | 2019-10-10 12:30 | NUR ---
RESTING IN BED WITH NO COMPLAINTS AT THIS TIME.
--- NOTE | 2019-10-10 13:00 | NUR ---
PT STATES HE FEELS MUCH BETTER.
[2019-10-10 13:06] LABS: BILIRUBIN,URINE NEGATIVE (NEGATIVE); CLARITY,URINE CLEAR; COLOR,URINE ORANGE; GLUCOSE, URINE (UA) NEGATIVE (NEGATIVE); KETONES,URINE NEGATIVE (NEGATIVE); LEUKOCYTE ESTERASE ,URINE NEGATIVE (NEGATIVE); NITRITE,URINE NEGATIVE (NEGATIVE); PROTEIN,URINE 2+ (NEGATIVE)
[2019-10-10 13:13] LABS: BACTERIA,URINE NEGATIVE /HPF
--- OUTSIDE RECORDS SUMMARY | 2019-10-10 13:13 | XMS REPORT | Continuity of Care Document ---
Author Organization Unknown Address Unknown Phone Unavailable Allergies Active Description Code Type Severity Reaction Onset Reported/Identified Relationship to Patient Clinical Status Yes AMOXICILLIN MODERATE DERMATOLOGICAL - CASSIE Yes AMOXICILLIN MODERATE MODERATE Yes No Known Drug Allergies [id number] Drug Allergy Unknown N/A 08/10/2019 Medications Medication Packaging Start Date St op [...] oral capsule (COLACE ) MG 10/14/2017 11/13/2017 BID&08 METOPROLOL TAB 50 MG (LOPRESSOR) MG 10/14/2017 [...] (NS 250CC IV BAG) ml 10/18/2017 10/18/2017 ONCE&2000 METOPROLOL TAB 50 MG (LOPRESSOR) MG 10/18/2017 10/25/2017 BID&08,1999 METOPROLOL TAB 50 MG (LOPRESSOR) MG 10/18/2017 10/18/2017 ONCE&2020 LACTOBACILLUS BULGARIS TAB (LACTINEX BULGA RIS) tab 10/18/2017 10/28/2017 QID&0800,1200,1700,2200 ACETAMINOPHEN ORAL TABLET 325mg(Tylenol) MG 10/18/2017 11/17/2017 PRN EVERY 4 Hour ACETAMINOPHEN SUPPOS SUP 650 MG (TYLENOL) MG 10/18/2017 10/25/2017 PRN Q6H VERAPAMIL TAB 80 MG (CALAN) MG 10/19/2017 11/17/2017 Q8H&0600,1400,2200 METOPROLOL TAB 50 MG (LOPRESSOR) MG 10/19/2017 10/25/2017 BID&0800,2000 Normal SALINE 0.9 % (NS 100cc) (plain bag) ml 10/19/2017 10/25/2017 BID&08,1999 METOPROLOL TAB 50 MG (LOPRESSOR) MG 10/19/2017 [...] oral capsule (COLACE ) MG 10/21/2017 11/20/2017 BID&08,1999 METOPROLOL TAB 50 MG (LOPRESSOR) MG 10/21/2017 [...] 04/19/2018 Daily&0900 MultiVits (Thera M Plus) (mu jsyxio-zddj-uokwyik) oral tablet TAB 04/13/2018 05/12/2018 Daily&0900 THIAMINE [...] 04/14/2018 04/20/2018 BID&0800,2000 MultiVits (Thera M Plus) ( sspnlo-yzic-aylkzwk) oral tablet TAB 04/14/2018 05/13/2018 Daily&0900 OXYCODONE [...] (KEFLEX) MG 07/24/2018 07/24/2018 ONCE&0150 CITRATE OF MAGNESIA LIQ ml 11/18/2018 11/18/2018 ONCE&1751 ENEMA (FLEET'S) [...] TAB 1 MG MG 03/15/2019 04/13/2019 Daily&0900 Flrwisdl-szpu-sly-folic acid ) tab,CHEWable (Centrum) TAB 03/15/2019 04/13/2019 Daily&0900 MIRTAZAPINE TAB 15 MG (REMERON) MG 03/15/2019 04/13/2019 QHS&2100 AMLODIPINE TAB 5 MG (NORVASC) MG 03/16/2019 04/14/2019 Daily&0900 VENLAFAXINE XR CAP 75 MG (EFFEXOR XR) MG 03/17/2019 04/15/2019 Daily&0900 FINASTERIDE TAB 5 MG (PROSCAR) MG 03/18/2019 03/18/2019 ONCE&1021 Flu vacc [id number] 6mos up(P F)) IM syringe QUAD (Fluarix) ML 03/18/2019 03/18/2019 ONCE&2049 PNEUMONIA VACCINE INJ (PREVNAR-13) ml 03/18/2019 03/18/2019 [...] Phyllis Leiva I48.2 CHRONIC ATRIAL FIBRILLATION 10/17/2017 Leiva, Phyllis W M25.552 PAIN IN LEFT HIP 10/17/2017 Phyllis Leiva W N18.9 CHRONIC KIDNEY DISEASE, UNSPECIFIED 10/17/2017 [...] PNEUMONIA, UNSPECIFIED ORGANISM 10/21/2017 Phyllis Leiva W 041.12 10/21/2017 Phyllis Leiva W 276.51 10/21/2017 Phyllis Leiva W 303.90 10/21/2017 Cali Phyllis W 338.2 CHRONIC PAIN 10/21/2017 Yasmine Leivai W 401.0 10/21/2017 Phyllis Leiva W 427.31 10/21/2017 Phyllis Leiva W 486 PNEUMONIA, ORGANISM UNSPECIFIED 10/21/2017 Cali Phyllis W 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 OBSTRUCTION AND OTHER LOWER URINARY TRACT SYMPTOMS (LUTS) 10/21/2017 Phyllis Leiva A 771.83 10/21/2017 Yasmine Leivai W 780.60 10/21/2017 Phyllis Leiva W 780.79 OTHER MALAISE AND FATIGUE 10/21/2017 Yasmine Leivai W B95.62 10/21/2017 Phyllis Leiva W E86.0 DEHYDRATION 10/21/2017 Phyllis Leiva W F10.20 ALCOHOL DEPENDENCE, UNCOMPLICATED 10/21/2017 Phyllis Leiva W G89.29 OTHER CHRONIC PAIN 10/21/2017 Phyllis Leiva W I10 ESSENTIAL (PRIMARY) HYPERTENSION 10/21/2017 Phyllis [...] FIBRILLATION 10/28/2017 Phyllis Leiva W 486 10/28/2017 Yasmine Leivai W 530.81 ESOPHAGEAL REFLUX 10/28/2017 Phyllis Leiva A 771.83 10/28/2017 Phyllis Leiva W 780.79 OTHER MALAISE AND FATIGUE 10/28/2017 Phyllis Leiva W 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 10/28/2017 Phyllis Leiva W F10.20 ALCOHOL DEPENDENCE, UNCOMPLICATED 10/28/2017 Phyllis Leiva W I10 ESSENTIAL (PRIMARY) HYPERTENSION 10/28/2017 Phyllis Leiva W I48.91 UNSPECIFIED ATRIAL FIBRILLATION 10/28/2017 Phyllis Leiva W J18.9 PNEUMONIA, UNSPECIFIED ORGANISM 10/28/2017 Phyllis Levia W K21.9 GASTRO- ESOPHAGEAL REFLUX DISEASE WITHOUT ESOPHAGITIS 10/28/2017 Yasmine Leivai W R53.81 OTHER MALAISE 10/28/2017 Yasmine Leivai A R78.81 BACTEREMIA 04/12/2018 Phyllis Leiva W 599.0 URINARY TRACT INFECTION, SITE NOT SPECIFIED 04/12/2018 Phyllis Leiva W N39.0 URINARY TRACT INFECTION, SITE NOT SPECIFIED 04/12/2018 Yasmine Leivai W 427.31 ATRIAL FIBRILLATION 04/12/2018 Yasmine Leivai W 599.0 URINARY TRACT INFECTION, SITE NOT SPECIFIED 04/12/2018 Phyllis Leiva W A41 OTHER SEPSIS 04/12/2018 Phyllis Leiva W 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 04/12/2018 Phyllis Leiva W I48.2 CHRONIC ATRIAL FIBRILLATION 04/12/2018 Phyllis Leiva W N39.0 URINARY TRACT INFECTION, SITE NOT SPECIFIED 04/17/2018 Phyllis Leiva W 038.9 UNSPECIFIED SEPTICEMIA 04/17/2018 Phyllis Leiva W 276.51 04/17/2018 Yasmine Leivai W 287.5 04/17/2018 Cali Phyllis W 291.81 04/17/2018 Cali Phyllis W 427.31 ATRIAL FIBRILLATION 04/17/2018 Yasmine Leivai W 599.0 URINARY TRACT INFECTION, SITE NOT SPECIFIED 04/17/2018 Phyllis Leiva W 599.71 04/17/2018 Cali Phyllis W 600.20 04/17/2018 Cali Phyllis W 781.99 04/17/2018 Yasmine Leivai W 797 04/17/2018 Phyllis Leiva W A41.9 SEPSIS, UNSPECIFIED ORGANISM 04/17/2018 Yasmine Leivai W D69.6 04/17/2018 Yasmine Leivai W E86.0 DEHYDRATION 04/17/2018 Phyllis Leiva W 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 04/17/2018 Phyllis Leiva W 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, UNCOMPLICATED 04/17/2018 Phyllis Leiva W I48.2 CHRONIC ATRIAL FIBRILLATION 04/17/2018 Phyllis Leiva W N39.0 URINARY TRACT INFECTION, SITE NOT SPECIFIED 04/17/2018 Phyllis Leiva W N40.0 04/17/2018 Phyllis Leiva W R29.6 REPEATED FALLS 04/17/2018 Yasmine Leivai W R31.0 GROSS HEMATURIA 04/17/2018 Yasmine Leivai W R54 AGE- RELATED PHYSICAL DEBILITY 04/17/2018 Phyllis Leiva W V58.69 LONG- TERM (CURRENT) USE OF OTHER MEDICATIONS 04/17/2018 LeivaYasmine beani W Z79.899 OTHER SENIOR LIVING (CURRENT) DRUG THERAPY 06/08/2018 Urmila Russell W 303.90 OTHER AND UNSPECIFIED ALCOHOL DEPENDENCE, UNSPECIFIED DRINKING BEHAVIOR 06/08/2018 RussellUrmila W 401.0 06/08/2018 RussellUrmila W 427.32 ATRIAL FLUTTER 06/08/2018 RussellUrmila W 724.2 LUMBAGO 06/08/2018 RussellUrmila W 780.79 06/08/2018 Russell, Urmila W 781.2 06/08/2018 RussellUrmila W F10.20 ALCOHOL DEPENDENCE, UNCOMPLICATED 06/08/2018 RussellUrmila W I10 ESSENTIAL (PRIMARY) HYPERTENSION 06/08/2018 RussellUrmila W I48.2 CHRONIC ATRIAL FIBRILLATION 06/08/2018 RussellUrmila W M54.5 LOW BACK PAIN 06/08/2018 RussellUrmila W R26.89 OTHER ABNORMALITIES OF GAIT AND MOBILITY 06/08/2018 RussellUrmila W R53.1 WEAKNESS 06/08/2018 RussellUrmila W V15.88 PERSONAL HISTORY OF FALL 06/08/2018 Urmila Russell W V45.4 POSTSURGICAL ARTHRODESIS STATUS 06/08/2018 Urmila Russell W Z91.81 HISTORY OF FALLING 06/08/2018 Urmila Russell W Z98.1 ARTHRODESIS STATUS 07/24/2018 JEANETTE SANTOYO W 784.7 EPISTAXIS 07/24/2018 JEANETTE SANTOYO W R04.0 EPISTAXIS 07/26/2018 Marcellus Taylor W V58.30 ENCOUNTER FOR CHANGE OR REMOVAL OF NONSURGICAL WOUND DRESSING 07/26/2018 Marcellus Taylor W Z48.00 ENCOUNTER FOR CHANGE OR REMOVAL OF NONSURG WOUND DRESSING 07/27/2018 LEISURE, CAROLYN W 784.7 EPISTAXIS 07/27/2018 LEISURE, CAROLYN W R04.0 EPISTAXIS 07/27/2018 LEISURE, CAROLYN W 784.7 EPISTAXIS 07/27/2018 LEISURE, LYNIETA W R04.0 EPISTAXIS 07/27/2018 LEISURE, CAROLYN W 784.7 EPISTAXIS 07/27/2018 LEISURE, LYNSHERIDANA W R04.0 EPISTAXIS 11/18/2018 Marcellus Taylor 564.00 [...] .8 OTHER SPECIFIED DISORDERS OF PERITONEUM 03/08/2019 CORTNEY CARUSO APRN W 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 ELSWHR 03/08/2019 ZULY GUPTA STORMY W D62 ACUTE POSTHEMORRHAGIC ANEMIA 03/08/2019 ZULY GUPTA STORMY W D69 .6 THROMBOCYTOPENIA, UNSPECIFIED 03/08/2019 CORTNEY CARUSO APRN W E86 .0 DEHYDRATION 03/08/2019 ZULY GUPTA STORMY W F10 .20 ALCOHOL DEPENDENCE, UNCOMPLICATED 03/08/2019 ZULY GUPTA STORMY W 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, UNCOMPLICATED 03/08/2019 ZULY GUPTA STORMY W G89 .29 OTHER CHRONIC PAIN 03/08/2019 ZULY GUPTA STORMY W I10 ESSENTIAL (PRIMARY) HYPERTENSION 03/08/2019 CORTNEY CARUSO APRN W I48 .2 CHRONIC ATRIAL FIBRILLATION 03/08/2019 ZULY GUPTA STORMY W I48 .91 UNSPECIFIED ATRIAL FIBRILLATION 03/08/2019 ZULY GUPTA STORMY W J18 .9 PNEUMONIA, UNSPECIFIED ORGANISM 03/08/2019 CORTNEY CARUSO APRN W M54 .5 LOW BACK PAIN 03/08/2019 CHANG CARUSO APRNY W N39 .0 URINARY TRACT INFECTION, SITE NOT SPECIFIED 03/08/2019 ZULY GUPTA STORMY W N40 .0 BENIGN PROSTATIC HYPERPLASIA WITHOUT LOWER URINRY TRACT SYMP 03/08/2019 ZULY GUPTA STORMRip W R04 .0 EPISTAXIS 03/08/2019 ZULY GUPTA STORMY W R29 .6 REPEATED FALLS 03/08/2019 ZULY GEOMATICS PROFESSOR, STORMY W R31 .0 GROSS HEMATURIA 03/08/2019 ZULY GEOMATICS PROFESSOR, STORMY W R50 .9 FEVER, UNSPECIFIED 03/08/2019 ZULY GUPTA STORMY W R53 .1 WEAKNESS 03/08/2019 CORTNEY CARUSO APRN W R53 .81 OTHER MALAISE 03/08/2019 CORTNEY CARUSO APRN W 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 03/08/2019 CORTNEY CARUSO APRN W Z91 .81 HISTORY OF FALLING 03/08/2019 CORTNEY CARUSO APRN W Z98 .1 ARTHRODESIS STATUS 03/09/2019 Phyllis [...] 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 03/13/2019 Phyllis Leiva Yusuf Z91.81 HISTORY OF FALLING 03/13/2019 Phyllis Leiva Yusuf Z98.1 ARTHRODESIS STATUS 03/22/2019 JUJU TAVERAS W 291 .89 OTHER 03/22/2019 JUJU TAVERAS W 296 .34 MAJOR DEPRESSIVE DISORDER, RECURRENT EPISODE, SEVERE DEG 03/22/2019 JUJU TAVERAS W 427 .31 ATRIAL FIBRILLATION 03/22/2019 GRECIAGLJUJU RAMIREZ W 780 .52 I 03/22/2019 JUJU TAVERAS D62 ACUTE POSTHEMORRHAGIC ANEMIA 03/22/2019 JUJU TAVERAS D69 .6 THROMBOCYTOPENIA, UNSPECIFIED 03/22/2019 JUJU TAVERAS E86 .0 DEHYDRATION 03/22/2019 JUJU TAVERAS 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 03/22/2019 JUJU TAVERAS F10 .20 ALCOHOL DEPENDENCE, UNCOMPLICATED 03/22/2019 JUJU TAVERAS W 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, UNCOMPLICATED 03/22/2019 [...] R29 .6 REPEATED FALLS 03/22/2019 JUJU TAVERAS W R31 .0 GROSS HEMATURIA 03/22/2019 GRECIAGLJUJU RAMIREZ W R50 .9 FEVER, UNSPECIFIED 03/22/2019 GRECIAGLJUJU RAMIREZ W R53 .1 WEAKNESS 03/22/2019 GRECIAGLJUJU RAMIREZ W R53 .81 OTHER MALAISE 03/22/2019 JUJU TAVERAS V58 .61 LONG-TERM (CURRENT) 03/22/2019 TARTAGLJUJU RAMIREZ W Z79 .01 SENIOR LIVING (CURRENT) USE OF ANTICOAGULANTS 03/22/2019 JUJU TAVERAS 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 03/22/2019 JUJU TAVERAS W Z91 .81 HISTORY OF FALLING 03/22/2019 JUJU TAVERAS Z98 .1 ARTHRODESIS STATUS 08/09/2019 CORTNEY CARUSO APRN W 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 ELSWHR 08/09/2019 CORTNEY CARUSO APRN W D62 ACUTE POSTHEMORRHAGIC ANEMIA 08/09/2019 CORTNEY CARUSO APRN W D69 .6 THROMBOCYTOPENIA, UNSPECIFIED 08/09/2019 CORTNEY CARUSO APRN W E86 .0 DEHYDRATION 08/09/2019 CORTNEY CARUSO APRN W F10 .20 ALCOHOL DEPENDENCE, UNCOMPLICATED 08/09/2019 CORTNEY CARUSO APRN W 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, UNCOMPLICATED 08/09/2019 CORTNEY CARUSO APRN W G89 .29 OTHER CHRONIC PAIN 08/09/2019 CORTNEY CARUSO APRN W I10 ESSENTIAL (PRIMARY) HYPERTENSION 08/09/2019 CORTNEY CARUSO APRN W I48 .2 CHRONIC ATRIAL FIBRILLATION 08/09/2019 CORTNEY CARUSO APRN W I48 .91 UNSPECIFIED ATRIAL FIBRILLATION 08/09/2019 CORTNEY CARUSO APRN W J18 .9 PNEUMONIA, UNSPECIFIED ORGANISM 08/09/2019 CORTNEY CARUSO APRN N18 .9 CHRONIC KIDNEY DISEASE, U 08/09/2019 CORTNEY CARUSO APRN W N39 .0 URINARY TRACT INFECTION, SITE NOT SPECIFIED 08/09/2019 CORTNEY CARUSO APRN W N40 .0 BENIGN PROSTATIC HYPERPLASIA WITHOUT LOWER URINRY TRACT SYMP 08/09/2019 ZULY GEOMATICS PROFESSOR, STORMY W R04 .0 EPISTAXIS 08/09/2019 ZULY GEOMATICS PROFESSOR, STORMY W R26 .89 OTHER ABNORMALITIES OF GAIT AND MOBILITY 08/09/2019 ZULY GEOMATICS PROFESSOR, STORMY W R29 .6 REPEATED FALLS 08/09/2019 ZULY GEOMATICS PROFESSOR, STORMY W R31 .0 GROSS HEMATURIA 08/09/2019 ZULY GEOMATICS PROFESSOR, STORMY W R50 .9 FEVER, UNSPECIFIED 08/09/2019 ZULY GEOMATICS PROFESSOR, STORMY W R53 .1 WEAKNESS 08/09/2019 ZULY GEOMATICS PROFESSOR, STORMY W R53 .81 OTHER MALAISE 08/09/2019 ZULY GEOMATICS PROFESSOR, STORMY W 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 08/09/2019 ZULY GEOMATICS PROFESSOR, STORMY W Z91 .81 HISTORY OF FALLING 08/09/2019 ZULY GEOMATICS PROFESSOR, STORMY W Z98 .1 ARTHRODESIS STATUS 08/10/2019 TYRONE SMITH DO Ot K66 .8 OTHER SPECIFIED DISORDERS OF PERITONEUM 08/11/2019 JENIFER BARNEY MD Ot G89. 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 0 PAROXYSMAL ATRIAL FIBRILLATION 08/11/2019 JENIFER BARNEY MD Ot M54. 9 DORSALGIA, UNSPECIFIED 08/11/2019 JENIFER BARNEY MD Ot N40. 0 BENIGN PROSTATIC HYPERPLASIA WITHOUT LOW 08/11/2019 JENIFER BARNEY MD Ot R05 COUGH 08/11/2019 JENIFER BARNEY MD Ot R11. 2 NAUSEA WITH VOMITING, UNSPECIFIED 08/11/2019 JENIFER BARNEY MD Ot R29. 6 REPEATED FALLS 08/11/2019 JENIFER BARNEY MD Ot R53. 81 OTHER MALAISE 08/11/2019 JENIFER BARNEY MD Ot R53. 83 OTHER FATIGUE 08/11/2019 JENIFER BARNEY MD Ot R63. 4 ABNORMAL WEIGHT LOSS 08/11/2019 JENIFER BARNEY MD Ot Z20.828 CONTACT W AND EXPOSURE TO OTH VIRAL COMM 08/11/2019 JENIFER BARNEY MD Ot Z79. 01 PROJECT CONSTRUCTION MANAGER (CURRENT) USE OF ANTICOAGULANT 08/11/2019 JENIFER BARNEY MD Ot Z87.891 PERSONAL HISTORY OF NICOTINE DEPENDENCE 09/03/2019 EMMY LOPEZ MD Ot A41. 9 SEPSIS, UNSPECIFIED ORGANISM 09/03/2019 EMMY LOPEZ MD Ot F17.290 NICOTINE DEPENDENCE, OTHER TOBACCO PRODU 09/03/2019 EMMY LOPEZ MD Ot I10 ESSENTIAL (PRIMARY) HYPERTENSION 09/03/2019 EMMY LOPEZ MD Ot I48. 20 CHRONIC ATRIAL FIBRILLATION, UNSPECIFIED 09/03/2019 EMMY LOPEZ MD, Ot J18. 9 PNEUMONIA, UNSPECIFIED ORGANISM 09/03/2019 EMMY LOPEZ MD, Ot J96. 01 ACUTE RESPIRATORY FAILURE WITH HYPOXIA 09/03/2019 EMMY LOPEZ MD, Ot M54. 9 DORSALGIA, UNSPECIFIED 09/03/2019 EMMY LOPEZ MD Ot R32 UNSPECIFIED URINARY INCONTINENCE 09/03/2019 EMMY LOPEZ MD, Ot Z20.828 CONTACT W AND EXPOSURE TO OTH VIRAL COMM 09/03/2019 EMMY LOPEZ MD Ot Z79. 01 PROJECT CONSTRUCTION MANAGER (CURRENT) USE OF ANTICOAGULANT 09/03/2019 EMMY LOPEZ MD Ot Z90. 89 ACQUIRED ABSENCE OF OTHER ORGANS Procedures There is no data. Results Test Result Range Digoxin - 10/18/17 16:24 Digoxin 0.3 ng/mL 0.5-1.5 Urinalysis - 10/18/17 18:02 Icotest Negative Negative Urine Volume Urine Volume Sufficient (10mL) Urine Yeast No Yeast present Urine-Appearance Slightly Cloudy Clear Urine-Bacteria Trace Urine-Bilirubin 1+ Negative Urine-Blood Negative Negative Urine-Color Yellow Colorless-Lt. [place] ow Urine-Epithelial Cells 0-5/HPF Urine-Glucose Negative Negative Urine-Ketones Negative Negative Urine-Leukocytes Negative Negative Urine-Mucus 3+ Urine-Nitrite Negative Negative Urine-Other Urine Saved if Culture Need ed (48hrs from time of collection) Urine-pH 5.5 5-8.5 Urine-Protein 1+ Negative Urine-RBC 0-2/HPF Urine-Specific [place] 1.025 1.000-1 .030 Urine-WBC Rare/HPF Urobilinogen 1.0 0.2-1.0 Mycoplasma - 10/18/17 18:55 Mycoplasma Negative Negative Blood Culture - 10/18/17 18:55 PRELIM CULTURE RESULTS Blood Culture POSITIV E, Growth Day [id number] Positive Cocci noted on Gram Stain, Further [...] RESULTS Blood Culture POSITIV E, Growth Day [id number] Negative Rods seen on Gram Stain, Further [...] Negative Urine-Blood 3+ Negative Urine-Color Yellow Colorless-Lt. [place] ow Urine-Epithelial Cells 5-10/HPF Urine-Glucose Negative Negative Urine-Ketones Negative Negative Urine-Leukocytes Negative Negative Urine-Nitrite Negative Negative Urine-Other Culture to follow Urine-pH 6.0 5-8.5 Urine-Protein Negative Negative Urine-RBC 20-40/HPF Urine-Specific [place] 1.020 1.000-1 .030 Urine-WBC 2-5/HPF Urobilinogen 1.0 [...] - 07/17/19 09:50 Ethanol 125 mg/dL 20-80 Digoxin - 08/09/19 10:50 Digoxin 0.5 ng/mL 0.5-1.5 EKG - 08/09/19 12:55 EKG Complete Complete blood count (CBC) with automate d white blood cell (WBC) differential - 08/10/19 02:50 Blood leukocytes automated count (number/volume) 6.9 10*3/uL 4.3-11.0 Blood erythrocytes automated count (number/volume) 4.50 10*6/uL 4.35-5.85 Venous blood hemoglobin measurement (mass/volume) 13.3 g/dL 13.3-17.7 Blood hematocrit (volume fraction) 39 % 40-54 Automated erythrocyte mean corpuscular volume 86 [ foz_us] 80-99 Automated erythrocyte mean corpuscular h emoglobin (mass per erythrocyte) 30 pg 25-34 Automated erythrocyte mean corpuscular h emoglobin concentration measurement (mass/volume) 34 g/dL 32-36 Automated erythrocyte distribution width ratio 14. 1 % 10.0- 14.5 Automated blood platelet count (count/volume) 264 10*3/uL 130-400 Automated blood platelet mean volume measurement 8.8 [foz_us] 7.4-10.4 Automated blood neutrophils/100 leukocytes 77 % 42-75 Automated blood lymphocytes/100 leukocytes 13 % 12-44 Blood monocytes/100 leukocytes 10 % 0-12 Automated blood eosinophils/100 leukocytes 0 % 0-10 Automated blood basophils/100 leukocytes 0 % 0-10 Blood neutrophils automated count (number/volume) 5.3 10*3 1.8-7.8 Blood lymphocytes automated count (number/volume) 0.9 10*3 1.0-4.0 Blood monocytes automated count (number/volume) 0. 7 10*3 0.0-1.0 Automated eosinophil count 0.0 10*3/uL 0 .0-0.3 Automated blood basophil count (count/volume) 0.0 10*3/uL 0.0-0.1 Comprehensive metabolic panel - 08/10/19 02:50 Serum or plasma sodium measurement (moles/volume) 138 mmol/L 135-145 Serum or plasma potassium measurement (moles/volume) 3.9 mmol/L 3.6-5.0 Serum or plasma chloride measurement (moles/volume) 100 mmol/L 98-107 Carbon dioxide 23 mmol/L 21-32 Serum or plasma anion gap determination (moles/volume) 15 mmol/L 5-14 Serum or plasma urea nitrogen measurement (mass/volume ) 7 mg/dL 7-18 Serum or plasma creatinine measurement (mass/volume) 0.84 mg/dL 0.60-1.30 Serum or plasma urea nitrogen/creatinine mass ratio 8 NRG Serum or plasma creatinine measurement w ith calculation of estimated glomerular filtration rate > NRG Serum or plasma glucose measurement (mass/volume) 165 mg/dL 70-105 Serum or plasma calcium measurement (mass/volume) 9.3 mg/dL 8.5-10.1 Serum or plasma total bilirubin measurement (mass/volu me) 0.8 mg/dL 0.1-1.0 Serum or plasma alkaline phosphatase lesley surement (enzymatic activity/volume) 76 U/L 40-136 Serum or plasma aspartate aminotransfera se measurement (enzymatic activity/volume) 20 U/L 5-34 Serum or plasma alanine aminotransferase measurement (enzymatic activity/volume) 10 U/L 0-55 Serum or plasma protein measurement (mass/volume) 7.4 g/dL 6.4-8.2 Serum or plasma albumin measurement (mass/volume) 3.7 g/dL 3.2-4.5 CALCIUM CORRECTED 9.5 mg/dL 8.5-10.1 PT panel in platelet poor plasma by coag ulation assay - 08/10/19 02:50 Prothrombin time (PT) in platelet poor plasma by coagu lation assay 16.7 s 12.2-14.7 INR in platelet poor plasma or blood by coagulation as say 1.3 0.8-1.4 Activated partial thromboplastin time (a PTT) in platelet poor plasma bycoagulation assay - 08/10/19 02:50 Activated partial thromboplastin time (a PTT) in platelet poor plasma bycoagulation assay 39 s 24-35 Magnesium - 08/10/19 02:50 Magnesium 1.6 mg/dL 1.6-2.4 Serum or plasma amylase measurement (enz ymatic activity/volume) - 08/10/19 02:50 Serum or plasma amylase measurement (enzymatic activit y/volume) 35 U/L 25-125 Lipase - 08/10/19 02:50 Lipase 22 U/L 8-78 [id number] - 08/10/19 02:50 [id number] 0.42 ng/mL 0.80-2.00 Serum or plasma troponin i.cardiac measu rement (mass/volume) - 08/10/19 02:50 Serum or plasma troponin i.cardiac measurement (mass/v olume) < ng/mL <0.028 Serum ragweed IgE antibody assay - 08/09 02:50 Serum ragweed IgE antibody assay 294 U/L 125-220 Fibrin D-dimer FEU measurement in platel et poor plasma (mass/volume) - 08/10/19 02:50 Fibrin D-dimer FEU measurement in platelet poor plasma (mass/volume) 0.82 ug/mL 0.00-0.49 PROCALCITONIN (PCT) - 08/10/19 02:50 PROCALCITONIN (PCT) 0.02 ng/mL <0.10 Serum or plasma C reactive protein measu rement (mass/volume) - 08/10/19 02:50 Serum or plasma C reactive protein measurement (mass/v olume) 0.62 mg/dL 0.00-0.50 Erythrocyte sedimentation rate by hari gren method - 08/10/19 02:50 Erythrocyte sedimentation rate by westergren method 60 mm 0- 30 Complete urinalysis with reflex to cultu re - 08/10/19 04:36 Urine color determination YELLOW NRG Urine clarity determination CLEAR NR G Urine pH measurement by test strip 7.5 5-9 Specific gravity of urine by test strip 1.010 1.016-1.022 Urine protein assay by test strip, semi-quantitative NEGATIVE NEGATIVE Urine glucose detection by automated test strip NE GATIVE NEGATIVE Erythrocytes detection in urine sediment by light micr oscopy 1+ NEGATIVE Urine ketones detection by automated test strip 1+ NEGATIVE Urine nitrite detection by test strip NEGATIVE NEGATIVE Urine total bilirubin detection by test strip NEGA TIVE NEGATIVE Urine urobilinogen measurement by automated test strip (mass/volume) 0.2 mg/dL < = 1.0 Urine leukocyte esterase detection by dipstick NEG ATIVE NEGATIVE Automated urine sediment erythrocyte cou nt by microscopy (number/high power field) [HPF] NRG Automated urine sediment leukocyte count by microscopy (number/high power field) NONE NRG Bacteria detection in urine sediment by light microsco py NEGATIVE NRG Squamous epithelial cells detection in u rine sediment by light microscopy 0-2 NRG Crystals detection in urine sediment by light microsco py NONE NRG Casts detection in urine sediment by light microscopy NONE NRG Mucus detection in urine sediment by light microscopy SMALL NRG Complete urinalysis with reflex to culture NO NRG Blood lactic acid measurement (moles/vol ume) - 08/10/19 05:02 Blood lactic acid measurement (moles/volume) 2.14 mmol/L 0.50-2.00 Bacterial blood culture - 08/10/19 05:02 QUANTITY OF GROWTH Isolated NRG Bacterial blood culture [id number] NRG SUSCEPTIBILITY SEE COMMENT NRG Coronavirus SARS-CoV-2 SO 2018 - 0 05:30 Coronavirus Ab [Units/volume] in Serum Negative Negative Bacterial blood culture - 08/10/19 05:30 Bacterial blood culture NG NRG ADENOVIRUS DETECTION BY PCR - 08/10/19 0 5:30 Adenovirus detection, CSF, PCR Not Detected Not Detected PARAINFLUENZA VIRUS 1,2,3 PCR - 08/10/19 05:30 Serum or plasma aripiprazole measurement (mass/volume) Not Detected Not Detected PARAINFLU 3 PCR Not Detected Not Detect ed Serum or plasma lactate measurement (mol es/volume) - 08/10/19 08:10 Serum or plasma lactate measurement (moles/volume) 1.88 mmol/L 0.50-2.00 Capillary blood glucose measurement by g lucometer (mass/volume) - 08/10/19 11:15 Capillary blood glucose measurement by glucometer (mas s/volume) 171 mg/dL 70-110 Capillary blood glucose measurement by g lucometer (mass/volume) - 08/10/19 15:34 Capillary blood glucose measurement by glucometer (mas s/volume) 152 mg/dL 70-110 Capillary blood glucose measurement by g lucometer (mass/volume) - 08/10/19 21:17 Capillary blood glucose measurement by glucometer (mas s/volume) 145 mg/dL 70-110 Capillary blood glucose measurement by g lucometer (mass/volume) - 08/11/19 05:57 Capillary blood glucose measurement by glucometer (mas s/volume) 134 mg/dL 70-110 Complete blood count (CBC) with automate d white blood cell (WBC) differential - 08/11/19 06:31 Blood leukocytes automated count (number/volume) 4.5 10*3/uL 4.3-11.0 Blood erythrocytes automated count (number/volume) 4.81 10*6/uL 4.35-5.85 Venous blood hemoglobin measurement (mass/volume) 14.1 g/dL 13.3-17.7 Blood hematocrit (volume fraction) 43 % 40-54 Automated erythrocyte mean corpuscular volume 90 [ foz_us] 80-99 Automated erythrocyte mean corpuscular h emoglobin (mass per erythrocyte) 29 pg 25-34 Automated erythrocyte mean corpuscular h emoglobin concentration measurement (mass/volume) 33 g/dL 32-36 Automated erythrocyte distribution width ratio 14. 8 % 10.0- 14.5 Automated blood platelet count (count/volume) 197 10*3/uL 130-400 Automated blood platelet mean volume measurement 9.1 [foz_us] 7.4-10.4 Automated blood neutrophils/100 leukocytes 51 % 42-75 Automated blood lymphocytes/100 leukocytes 32 % 12-44 Blood monocytes/100 leukocytes 15 % 0-12 Automated blood eosinophils/100 leukocytes 2 % 0-10 Automated blood basophils/100 leukocytes 1 % 0-10 Blood neutrophils automated count (number/volume) 2.3 10*3 1.8-7.8 Blood lymphocytes automated count (number/volume) 1.5 10*3 1.0-4.0 Blood monocytes automated count (number/volume) 0. 7 10*3 0.0-1.0 Automated eosinophil count 0.1 10*3/uL 0 .0-0.3 Automated blood basophil count (count/volume) 0.0 10*3/uL 0.0-0.1 Comprehensive metabolic panel - 08/11/19 06:31 Serum or plasma sodium measurement (moles/volume) 141 mmol/L 135-145 Serum or plasma potassium measurement (moles/volume) 4.1 mmol/L 3.6-5.0 Serum or plasma chloride measurement (moles/volume) 107 mmol/L 98-107 Carbon dioxide 22 mmol/L 21-32 Serum or plasma anion gap determination (moles/volume) 12 mmol/L 5-14 Serum or plasma urea nitrogen measurement (mass/volume ) 5 mg/dL 7-18 Serum or plasma creatinine measurement (mass/volume) 0.92 mg/dL 0.60-1.30 Serum or plasma urea nitrogen/creatinine mass ratio 5 NRG Serum or plasma creatinine measurement w ith calculation of estimated glomerular filtration rate > NRG Serum or plasma glucose measurement (mass/volume) 138 mg/dL 70-105 Serum or plasma calcium measurement (mass/volume) 8.9 mg/dL 8.5-10.1 Serum or plasma total bilirubin measurement (mass/volu me) 0.6 mg/dL 0.1-1.0 Serum or plasma alkaline phosphatase lesley surement (enzymatic activity/volume) 67 U/L 40-136 Serum or plasma aspartate aminotransfera se measurement (enzymatic activity/volume) 22 U/L 5-34 Serum or plasma alanine aminotransferase measurement (enzymatic activity/volume) 10 U/L 0-55 Serum or plasma protein measurement (mass/volume) 6.9 g/dL 6.4-8.2 Serum or plasma albumin measurement (mass/volume) 3.4 g/dL 3.2-4.5 CALCIUM CORRECTED 9.4 mg/dL 8.5-10.1 PROCALCITONIN (PCT) - 08/11/19 06:31 PROCALCITONIN (PCT) 0.03 ng/mL <0.10 Capillary blood glucose measurement by g lucometer (mass/volume) - 08/11/19 11:39 Capillary blood glucose measurement by glucometer (mas s/volume) 144 mg/dL 70-110 Arterial blood gas measurement - 0 07:25 Blood pCO2 35 mm[Hg] 35-45 Blood pO2 78 mm[Hg] 79-93 Arterial blood bicarbonate measurement (moles/volume) 24 mmol/L 23-27 Arterial blood base excess by calculation 0.4 mmol /L -2.5-2.5 Arterial blood oxygen saturation measurement 97 % 94-100 * Inhaled oxygen flow rate ROOM AIR NRG Arterial blood pH measurement with patient temperature correction 7.45 7.37-7.43 Arterial blood carbon dioxide, total measurement (mole s/volume) 25.0 mmol/L 21.0-31.0 Body site RIGHT RADIAL NRG Assessment of wrist artery patency prior to arterial p uncture YES-POS NRG Setting of ventilation mode NO NR G Measurement of body temperature 36.8 NRG Complete blood count (CBC) with automate d white blood cell (WBC) differential - 09/02/19 07:35 Blood leukocytes automated count (number/volume) 8.6 10*3/uL 4.3-11.0 Blood erythrocytes automated count (number/volume) 4.88 10*6/uL 4.35-5.85 Venous blood hemoglobin measurement (mass/volume) 15.0 g/dL 13.3-17.7 Blood hematocrit (volume fraction) 44 % 40-54 Automated erythrocyte mean corpuscular volume 89 [ foz_us] 80-99 Automated erythrocyte mean corpuscular h emoglobin (mass per erythrocyte) 31 pg 25-34 Automated erythrocyte mean corpuscular h emoglobin concentration measurement (mass/volume) 34 g/dL 32-36 Automated erythrocyte distribution width ratio 15. 4 % 10.0- 14.5 Automated blood platelet count (count/volume) 179 10*3/uL 130-400 Automated blood platelet mean volume measurement 9.9 [foz_us] 7.4-10.4 Automated blood neutrophils/100 leukocytes 71 % 42-75 Automated blood lymphocytes/100 leukocytes 17 % 12-44 Blood monocytes/100 leukocytes 11 % 0-12 Automated blood eosinophils/100 leukocytes 1 % 0-10 Automated blood basophils/100 leukocytes 0 % 0-10 Blood neutrophils automated count (number/volume) 6.1 10*3 1.8-7.8 Blood lymphocytes automated count (number/volume) 1.5 10*3 1.0-4.0 Blood monocytes automated count (number/volume) 0. 9 10*3 0.0-1.0 Automated eosinophil count 0.1 10*3/uL 0 .0-0.3 Automated blood basophil count (count/volume) 0.0 10*3/uL 0.0-0.1 Comprehensive metabolic panel - 09/02/19 07:35 Serum or plasma sodium measurement (moles/volume) 138 mmol/L 135-145 Serum or plasma potassium measurement (moles/volume) 4.2 mmol/L 3.6-5.0 Serum or plasma chloride measurement (moles/volume) 102 mmol/L 98-107 Carbon dioxide 24 mmol/L 21-32 Serum or plasma anion gap determination (moles/volume) 12 mmol/L 5-14 Serum or plasma urea nitrogen measurement (mass/volume ) 11 mg/dL 7-18 Serum or plasma creatinine measurement (mass/volume) 0.86 mg/dL 0.60-1.30 Serum or plasma urea nitrogen/creatinine mass ratio 13 NRG Serum or plasma creatinine measurement w ith calculation of estimated glomerular filtration rate > NRG Serum or plasma glucose measurement (mass/volume) 122 mg/dL 70-105 Serum or plasma calcium measurement (mass/volume) 9.2 mg/dL 8.5-10.1 Serum or plasma total bilirubin measurement (mass/volu me) 1.0 mg/dL 0.1-1.0 Serum or plasma alkaline phosphatase lesley surement (enzymatic activity/volume) 77 U/L 40-136 Serum or plasma aspartate aminotransfera se measurement (enzymatic activity/volume) 22 U/L 5-34 Serum or plasma alanine aminotransferase measurement (enzymatic activity/volume) 11 U/L 0-55 Serum or plasma protein measurement (mass/volume) 8.0 g/dL 6.4-8.2 Serum or plasma albumin measurement (mass/volume) 4.1 g/dL 3.2-4.5 CALCIUM CORRECTED 9.1 mg/dL 8.5-10.1 Blood lactic acid measurement (moles/vol ume) - 09/02/19 07:35 Blood lactic acid measurement (moles/volume) 1.21 mmol/L 0.50-2.00 Serum ragweed IgE antibody assay - 09/01 07:35 Serum ragweed IgE antibody assay 230 U/L 125-220 PT panel in platelet poor plasma by coag ulation assay - 09/02/19 07:35 Prothrombin time (PT) in platelet poor plasma by coagu lation assay 14.3 s 12.2-14.7 INR in platelet poor plasma or blood by coagulation as say 1.1 0.8-1.4 Activated partial thromboplastin time (a PTT) in platelet poor plasma bycoagulation assay - 09/02/19 07:35 Activated partial thromboplastin time (a PTT) in platelet poor plasma bycoagulation assay 38 s 24-35 Fibrin D-dimer FEU measurement in platel et poor plasma (mass/volume) - 09/02/19 07:35 Fibrin D-dimer FEU measurement in platelet poor plasma (mass/volume) 0.36 ug/mL 0.00-0.49 PROCALCITONIN (PCT) - 09/02/19 07:35 PROCALCITONIN (PCT) 0.01 ng/mL <0.10 Erythrocyte sedimentation rate by hari gren method - 09/02/19 07:35 Erythrocyte sedimentation rate by westergren method 15 mm 0- 30 Serum or plasma troponin i.cardiac measu rement (mass/volume) - 09/02/19 07:35 Serum or plasma troponin i.cardiac measurement (mass/v olume) < ng/mL <0.028 Serum or plasma C reactive protein measu rement (mass/volume) - 09/02/19 07:35 Serum or plasma C reactive protein measurement (mass/v olume) 0.37 mg/dL 0.00-0.50 [id number] - 09/02/19 07:35 [id number] < 0.30 0.80-2.00 Bacterial blood culture - 09/02/19 07:35 Bacterial blood culture NG NRG Coronavirus SARS-CoV-2 SO 2018 - 0 07:39 Coronavirus Ab [Units/volume] in Serum Negative Negative Bacterial blood culture - 09/02/19 07:52 Bacterial blood culture NG NRG Complete urinalysis with reflex to cultu re - 09/02/19 09:45 Urine color determination YELLOW NRG Urine clarity determination CLEAR NR G Urine pH measurement by test strip 6.5 5-9 Specific gravity of urine by test strip 1.015 1.016-1.022 Urine protein assay by test strip, semi-quantitative NEGATIVE NEGATIVE Urine glucose detection by automated test strip NE GATIVE NEGATIVE Erythrocytes detection in urine sediment by light micr oscopy 1+ NEGATIVE Urine ketones detection by automated test strip 1+ NEGATIVE Urine nitrite detection by test strip NEGATIVE NEGATIVE Urine total bilirubin detection by test strip NEGA TIVE NEGATIVE Urine urobilinogen measurement by automated test strip (mass/volume) 0.2 mg/dL < = 1.0 Urine leukocyte esterase detection by dipstick NEG ATIVE NEGATIVE Automated urine sediment erythrocyte cou nt by microscopy (number/high power field) [HPF] NRG Automated urine sediment leukocyte count by microscopy (number/high power field) NONE NRG Bacteria detection in urine sediment by light microsco py NEGATIVE NRG Squamous epithelial cells detection in u rine sediment by light microscopy NONE NRG Crystals detection in urine sediment by light microsco py NONE NRG Casts detection in urine sediment by light microscopy NONE NRG Mucus detection in urine sediment by light microscopy NEGATIVE NRG Complete urinalysis with reflex to culture CULTURE PENDING NRG Bacterial urine culture - 09/02/19 09:45 Bacterial urine culture NG NRG Complete blood count (CBC) with automate d white blood cell (WBC) differential - 09/03/19 05:50 Blood leukocytes automated count (number/volume) 6.2 10*3/uL 4.3-11.0 Blood erythrocytes automated count (number/volume) 4.13 10*6/uL 4.35-5.85 Venous blood hemoglobin measurement (mass/volume) 12.8 g/dL 13.3-17.7 Blood hematocrit (volume fraction) 38 % 40-54 Automated erythrocyte mean corpuscular volume 91 [ foz_us] 80-99 Automated erythrocyte mean corpuscular h emoglobin (mass per erythrocyte) 31 pg 25-34 Automated erythrocyte mean corpuscular h emoglobin concentration measurement (mass/volume) 34 g/dL 32-36 Automated erythrocyte distribution width ratio 15. 3 % 10.0- 14.5 Automated blood platelet count (count/volume) 155 10*3/uL 130-400 Automated blood platelet mean volume measurement 9.4 [foz_us] 7.4-10.4 Automated blood neutrophils/100 leukocytes 64 % 42-75 Automated blood lymphocytes/100 leukocytes 22 % 12-44 Blood monocytes/100 leukocytes 12 % 0-12 Automated blood eosinophils/100 leukocytes 2 % 0-10 Automated blood basophils/100 leukocytes 1 % 0-10 Blood neutrophils automated count (number/volume) 3.9 10*3 1.8-7.8 Blood lymphocytes automated count (number/volume) 1.4 10*3 1.0-4.0 Blood monocytes automated count (number/volume) 0. 8 10*3 0.0-1.0 Automated eosinophil count 0.1 10*3/uL 0 .0-0.3 Automated blood basophil count (count/volume) 0.0 10*3/uL 0.0-0.1 Comprehensive metabolic panel - 09/03/19 05:50 Serum or plasma sodium measurement (moles/volume) 140 mmol/L 135-145 Serum or plasma potassium measurement (moles/volume) 4.0 mmol/L 3.6-5.0 Serum or plasma chloride measurement (moles/volume) 109 mmol/L 98-107 Carbon dioxide 22 mmol/L 21-32 Serum or plasma anion gap determination (moles/volume) 9 mmol/L 5-14 Serum or plasma urea nitrogen measurement (mass/volume ) 9 mg/dL 7-18 Serum or plasma creatinine measurement (mass/volume) 0.81 mg/dL 0.60-1.30 Serum or plasma urea nitrogen/creatinine mass ratio 11 NRG Serum or plasma creatinine measurement w ith calculation of estimated glomerular filtration rate > NRG Serum or plasma glucose measurement (mass/volume) 126 mg/dL 70-105 Serum or plasma calcium measurement (mass/volume) 8.1 mg/dL 8.5-10.1 Serum or plasma total bilirubin measurement (mass/volu me) 1.0 mg/dL 0.1-1.0 Serum or plasma alkaline phosphatase lesley surement (enzymatic activity/volume) 66 U/L 40-136 Serum or plasma aspartate aminotransfera se measurement (enzymatic activity/volume) 17 U/L 5-34 Serum or plasma alanine aminotransferase measurement (enzymatic activity/volume) 8 U/L 0-55 Serum or plasma protein measurement (mass/volume) 6.5 g/dL 6.4-8.2 Serum or plasma albumin measurement (mass/volume) 3.4 g/dL 3.2-4.5 CALCIUM CORRECTED 8.6 mg/dL 8.5-10.1 Encounters ACCT No. Visit Date/Time Discharge Status Pt. Type Provider Facility Loc./Unit Complaint [id number] 08/09/2019 10:33:00 08/09/2019 13:35 :00 DIS Outpatient ZULY GUPTACORTNEY [facility] ER [id number] 07/04/2019 11:32:00 07/20/2019 08:33 :00 DIS Outpatient [place] [id number] 07/17/2019 10:16:00 07/17/2019 23:59 :00 DIS Outpatient [place] [id number] 04/05/2019 13:34:00 04/05/2019 23:59 :00 DIS Outpatient RussellUrmila [id number] 03/13/2019 11:40:00 03/22/2019 12:10 :00 DIS Inpatient JUJU TAVERAS [facility] [id number] 03/09/2019 15:43:00 03/13/2019 13:10 :00 DIS [facility]patient [facility] [id number] 03/08/2019 12:09:00 03/08/2019 14:30 :00 DIS Outpatient ZULY GUPTA CORTNEY [facility] ER [id number] 11/18/2018 16:10:00 11/18/2018 18:10: 00 DIS Outpatient Marcellus Taylor [facility] ER [id number] 07/27/2018 15:22:00 07/27/2018 17:10: 00 DIS Outpatient CAROLYN SNELL [id number] 07/26/2018 17:47:00 07/26/2018 18:30: 00 DIS Outpatient Marcellus Taylor [id number] 07/24/2018 01:07:00 07/24/2018 02:24: 00 DIS Outpatient JEANETTE SANTOYO [place] [facility] ER [id number] 05/25/2018 11:06:00 06/08/2018 15:14: 00 DIS Outpatient Russell Urmila [id number] 04/12/2018 18:45:00 04/17/2018 13:00: 00 DIS Inpatient [facility] [id number] 10/21/2017 12:44:00 10/28/2017 17:27: 00 DIS Inpatient [facility] enter [facility] [id number] 10/18/2017 19:04:00 10/21/2017 13:01: 00 DIS Inpatient Phyllis [facility] enter ICU [id number] 10/11/2017 16:04:00 10/17/2017 13:23: 00 DIS Inpatient Phyllis [facility] enter [facility]SUR[facility] [id number] 10/11/2017 16:56:37 Document Registration [id number] 07/24/2018 00:55:00 Document Registration [id number] 09/02/2019 09:30:00 13:10:00 DIS Inpatient JOHN SULLIVAN, EMMY [facility]ad[facility] 4TH SEPSIS, PNA, ACUTE RESP DISTRESS [id number] 08/10/2019 05:00:00 13:15:00 DIS Inpatient SAVITA SULLIVAN, JENIFER [facility]ad[facility]ama [facility] 4TH LLL PNA,NAUSEA/VOMITING ;CHRONIC A- FIB; [id number] 12/01/2018 11:50:00 23:59:59 CLS Outpatient TYRONE SMITH DO [facility] RAD CYST [id number] 11/15/2018 15:24:00 23:59:59 CLS Outpatient TYRONE SMITH DO [facility] RAD BACK PAIN [id number] 09/28/2018 14:00:00 09/28/2018 23:59: 59 CLS Outpatient RUSSELL, URMILA J [facility] [id number] 06/20/2018 10:40:00 Document Registration
--- NOTE | 2019-10-10 13:33 | NUR ---
TALKED WITH PT'S NEPHEW WHO STATES HE WILL NOT BE ABLE TO COME AND GET HIME TILL AFTER 5PM TONIGHT. CAB CALLED FOR THE PT. PT INSTRUCTED HE NEEDS TO TAKE HIS BP MED THAT HE DID NOT TAKE THIS AM
[2019-10-10 13:39] VITALS: BP 136/107
--- NOTE | 2019-10-10 13:39 | NUR ---
TALKED WITH PT'S NEPHEW AGAIN WHO STATES HIS SISTER WILL BE COMING TO GET HIM.
== END 2019-10-10 13:37 | disposition home or self-care (01) ==
LOC: ER 11:20 → EDUNIT# 11:20 → ER 13:37
DX: K21.9 Gastro-esophageal reflux disease without esophagitis (principal); I10 Essential (primary) hypertension; I48.91 Unspecified atrial fibrillation; Z79.01 Long term (current) use of anticoagulants
CPT/HCPCS: 36415; 74022; 80053; 81000; 83690; 85007; 85027

== ENCOUNTER 2019-11-17 23:55 | Emergency (ER) | payer MEDICARE, OTHER ==
[~2019-11-17] VITALS: Ht 177.8 cm; Wt 90.7 kg
--- NOTE | 2019-11-18 00:11 | ED GI ---
General Chief Complaint: Abdominal/GI Problems Stated Complaint: ABD PAIN Source of Information: Patient (VERY LIMITED HISTORIAN, ESPECIALLY ABOUT PMH AND DOES NOT KNOW ANY OF HIS MEDICATIONS), Old Records History of Present Illness Date Seen by Provider: Nov 17, 2019 Time Seen by Provider: 23:56 Initial Comments PT ARRIVES VIA EMS FROM HOME IN [place] --LIVES ALONE C/O CONSTIPATION, NO BM X 4 DAYS C/O ABDOMINAL PRESSURE, BUT NOT ACTUALLY ANY PAIN NO NAUSEA/VOMITING--HAS BEEN EATING AND DRINKING NORMALLY, INCLUDING THIS EVENING NO URINARY SYMPTOMS, VOIDING A NORMAL AMOUNT NO FEVER NO RELIEF WITH 1 SUPPOSITORY AT 1800 THIS EVENING LATER STATES HE TOOK AN UNKNOWN OTC LIQUID MEDICATION TO HELP--HAS NO IDEA WHAT HE TOOK, THINKS HE TOOK IT AT 1800 WELL PT CLAIMS NO HISTORY OF SIMILAR NO ABDOMINAL SURGERIES STATES HE IS NOT ON ANY PAIN MEDICATIONS HAS AD 4 VISITS HERE SINCE HIS FIRST VISIT IN JULY. PT IS ALSO KNOWN TO [facility] PCP: DR. DARNELL Allergies and Home Medications Allergies Coded Allergies: No Known Drug Allergies (Unverified , 08/10/19) Home Medications Albuterol Sulfate 1 Puff Puff, 2 PUFF INH Q4H 1 PUFF = 90 MCG Prescribed by: THOR LINDSAY on 08/11/19 1136 Amlodipine Besylate 5 Mg Tablet, 5 MG PO DAILY, (Reported) Apixaban 5 Mg Tablet, 5 MG PO 1200,1800, (Reported) TAKES TWICE DAILY @ 1200&1800 Cefdinir 300 Mg Capsule, 300 MG PO BID Prescribed by: JENIFER BARNEY on 09/03/19 1138 Digoxin 125 Mcg Tablet, 125 MCG PO DAILY, (Reported) Finasteride 5 Mg Tablet, 5 MG PO 1200, (Reported) Folic Acid 1 Mg Tablet, 1 MG PO DAILY, (Reported) Gabapentin 300 Mg Capsule, 300 MG PO TID, (Reported) Metoprolol Tartrate 50 Mg Tablet, 50 MG PO 1200,1800, (Reported) TAKES TWICE DAILY @1200&1800 Multivitamin 1 Each Tablet, 1 EACH PO DAILY, (Reported) Sutherland-3/Dha/Epa/Fish Oil 1 Each Capsule, 1 EACH PO DAILY, (Reported) Tamsulosin HCl 0.4 Mg Cap, 0.4 MG PO DAILY, (Reported) Venlafaxine HCl 75 Mg Cap.er.24h, 150 MG PO DAILY, (Reported) Verapamil HCl 80 Mg Tablet, 80 MG PO 1200,1800, (Reported) TAKES TWICE DAILY @1200&1800 Patient Home Medication List Home Medication List Reviewed: Yes Review of Systems Review of Systems Constitutional: no symptoms reported; No chills, No fever Respiratory: No Symptoms Reported Cardiovascular: No Symptoms Reported Gastrointestinal: See HPI; Denies Abdominal Pain; Constipated; Denies Diarrhea, Denies Nausea, Denies Poor Appetite, Denies Vomiting Genitourinary: No Symptoms Reported Musculoskeletal: no symptoms reported Skin: no symptoms reported Psychiatric/Neurological: No Symptoms Reported Endocrine: No Symptoms Reported Hematologic/Lymphatic: No Symptoms Reported Past [id number]-[id number]-[id number] Hx Past Med/Social Hx: Reviewed and Corrections made Patient Social History Alcohol Use: Regular Use Alcohol Beverage of Choice: [place] Recreational Drug Use: No Smoking Status: Former Smoker Type Used: Pipe Immunizations Up To Date Tetanus Booster (TDap): Less than 5yrs PED Vaccines UTD: Yes Date of Pneumonia Vaccine: Jan 09, 2019 Past Medical History Surgeries: Yes (BACK SURGERY-DR. SMITH) Orthopedic, Tonsillectomy Respiratory: No Cardiac: Yes Atrial Fibrillation, Hypertension Neurological: No (? NEUROPATHY OR RESTLESS LEGS ? 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 oz. kg; 28.00 BMI Method: General Appearance: WD/WN, no apparent distress Respiratory: normal breath sounds, no respiratory distress, no accessory muscle use Cardiovascular: no murmur, irregularly irregular Gastrointestinal: non tender, soft (ROTUND BUT SOFT), abnormal bowel sounds (HYPERACTIVE ); No guarding, No rebound, No tenderness, No hernia, No mass Extremities: normal range of motion, non-tender, pedal edema (TTRACE BILATERALLY) Back: no CVA tenderness Neurologic/Psychiatric: racing mechanic II-XII nml as tested, no motor/sensory deficits, alert, normal mood/affect, oriented x 3 (BUT POOR MEMORY) Skin: normal color, warm/dry Progress/Results/Core Measures Results/Orders My Orders Orders - LUCIANO KOO DO Acute Abd Series (11/18/19 00:24) Vital Signs/I&O 11/17/19 11/18/19 23:55 01:08 Temp 36.7 36.9 Pulse 102 82 Resp 20 20 B/P (MAP) 142/103 (116) 160/99 Pulse Ox 96 O2 Delivery Room Air Progress Progress Note : Progress Note LITERALLY SOON PT ARRIVES, HE C/O MUCH PRESSURE IN RECTAL AREA AND FEELS STRONG URGE TO HAVE A BM AND STATES "IT FEELS LIKE IT COMING OUT NOW" PT TAKEN TO BATHROOM AND HAD A LARGE BM SHORTLY AFTER ARRIVAL AND SYMPTOMS ARE RESOLVED. ADVISED TO TAKE MIRALAX DAILY, PT STATES HE HAS SOME AT HOME, BUT HAS NOT BEEN TAKING IT--"DIDN'T THINK I NEEDED IT" IS HIS EXPLANATION--STRESSED THE IMPORTANCE OF TAKING DAILY TO PREVENT THIS PROBLEM Diagnostic Imaging Comments ABDOMEN XRAYS--NON-SPECIFIC BOWEL GAS PATTERN, NO OBSTRUCTION, PENDING RADIOLOGIST REVIEW Reviewed: Reviewed by Me Departure Impression Primary Impression: Constipation Disposition: HOME, SELF-CARE Condition: Improved Departure-Patient Inst. Referrals: AMERICA DARNELL DO (PCP/Family) Primary Care Physician Patient Instructions: Constipation, Adult (DC) Add. Discharge Instructions: INCREASE YOUR WATER AND FIBER INTAKE TAKE MIRALAX DAILY USE DULCOLAX SUPPOSITORIES AND FLEET'S ENEMAS NEEDED FOLLOW UP WITH DR. DARNELL ON TUESDAY IF NO BETTER All discharge instructions reviewed with patient and/or family. Voiced understanding. LUCIANO KOO DO Nov 18, 2019 00:11
[2019-11-18 01:08] VITALS: BP 160/99
--- NOTE | 2019-11-18 05:59 | Diagnostic Imaging Report ---
INDICATION: Abdominal pain COMPARISON: 10/10/2019 FINDINGS: Supine and upright views of the abdomen show several air-fluid levels scattered throughout the abdomen. Despite this, small bowel loops are nondistended. There is no large collection of free intraperitoneal air. No abnormal extraosseous calcifications are seen. Bony and soft tissue structures are within normal limits. No organomegaly is identified. Accompanying upright chest shows normal heart size and pulmonary vascularity. The lungs are hypoinflated, but are otherwise clear. The mediastinum is normal in appearance. IMPRESSION: 1. Multiple air-fluid levels scattered throughout otherwise nondistended loops of small bowel. Findings are nonspecific, but can be seen with diarrhea related to underlying enteritis. Clinical correlation is recommended. 2. Normal chest. No pneumonia or pulmonary edema. Dictated by: Dictated on workstation # [id number]
== END 2019-11-18 01:07 | disposition home or self-care (01) ==
LOC: EDUNIT# 11-18 00:01 → ER 11-18 00:02
DX: K59.00 Constipation, unspecified (principal); I10 Essential (primary) hypertension; I48.91 Unspecified atrial fibrillation; Z79.01 Long term (current) use of anticoagulants; Z87.891 Personal history of nicotine dependence
CPT/HCPCS: 74022

== ENCOUNTER 2019-11-23 06:17 | Emergency (ER) | payer MEDICARE, OTHER ==
[~2019-11-23] VITALS: Ht 177 cm; Wt 98.0 kg
--- NOTE | 2019-11-23 06:33 | NUR ---
PT BELLIGERENT AND WILL NOT STAY IN ROOM. STATES HE WANTS TO LEAVE AND REFUSES TO BE TREATED. AFSHAN, PT NEPHEW CALLED AT THIS TIME AND MESSAGE LEFT FOR RIDE HOME. PT BELLIGERENT AND WILL NOT STAY IN ROOM.
--- NOTE | 2019-11-23 06:42 | ED EENT ---
History of Present Illness General Chief Complaint: Oral/Throat Problems Stated Complaint: SORE THROAT,COUGH Source: patient Exam Limitations: no limitations History of Present Illness Date Seen by Provider: Nov 23, 2019 Time Seen by Provider: 06:26 Initial Comments Patient presents ER from home by EMS with chief complaint of sore throat. He says it started this morning. He says he does not recall calling EMS however EMS says he was going on home. He is a chronic alcoholic. He is a poor historian but well-known to this provider and this ER. EMS states they make several runs on him usually just to help him get back up off the floor but he usually denies transport. He is not having any shortness of air cough fever diarrhea loss of sense of taste. No known sick contacts because he says he just stays in his home. He has a nephew who lives near him who looks in on him. Allergies and Home Medications Allergies Coded Allergies: No Known Drug Allergies (Unverified , 08/10/19) Home Medications Albuterol Sulfate 1 Puff Puff, 2 PUFF INH Q4H 1 PUFF = 90 MCG Prescribed by: THOR LINDSAY on 08/11/19 1136 Amlodipine Besylate 5 Mg Tablet, 5 MG PO DAILY, (Reported) Apixaban 5 Mg Tablet, 5 MG PO 1200,1800, (Reported) TAKES TWICE DAILY @ 1200&1800 Cefdinir 300 Mg Capsule, 300 MG PO BID Prescribed by: JENIFER BARNEY on 09/03/19 1138 Digoxin 125 Mcg Tablet, 125 MCG PO DAILY, (Reported) Finasteride 5 Mg Tablet, 5 MG PO 1200, (Reported) Folic Acid 1 Mg Tablet, 1 MG PO DAILY, (Reported) Gabapentin 300 Mg Capsule, 300 MG PO TID, (Reported) Metoprolol Tartrate 50 Mg Tablet, 50 MG PO 1200,1800, (Reported) TAKES TWICE DAILY @1200&1800 Multivitamin 1 Each Tablet, 1 EACH PO DAILY, (Reported) [place]-3/Dha/Epa/Fish Oil 1 Each Capsule, 1 EACH PO DAILY, (Reported) Tamsulosin HCl 0.4 Mg Cap, 0.4 MG PO DAILY, (Reported) Venlafaxine HCl 75 Mg Cap.er.24h, 150 MG PO DAILY, (Reported) Verapamil HCl 80 Mg Tablet, 80 MG PO 1200,1800, (Reported) TAKES TWICE DAILY @1200&1800 Patient Home Medication List Home Medication List Reviewed: Yes Review of Systems Review of Systems Constitutional: No chills, No diaphoresis Eyes: Denies Blindness, Denies Blurred Vision, Denies Drainage Ears: Denies Dizziness, Denies Pain Nose: denies clots, denies congestion Mouth: denies pain, denies swelling Throat: denies pain, denies swelling Respiratory: No cough, No hemoptysis Cardiovascular: No chest pain, No edema Gastrointestinal: No abdominal pain, No constipation, No diarrhea All Other Systems Reviewed Negative Unless Noted: Yes Past Kbbwplo-Lexaxk-Udvmgj Hx Patient Social History Alcohol Use: Regular Use Alcohol Beverage of Choice: [place] Recreational Drug Use: No Type Used: Pipe Immunizations Up To Date Tetanus Booster (TDap): Less than 5yrs PED Vaccines UTD: Yes Date of Pneumonia Vaccine: Jan 09, 2019 Past Medical History Surgeries: Yes (BACK SURGERY-DR. SMITH) Orthopedic, Tonsillectomy Respiratory: No Cardiac: Yes Atrial Fibrillation, Hypertension Neurological: No (? NEUROPATHY OR RESTLESS LEGS ? ) Genitourinary: Yes (PROSTATE PROBLEMS PER MEDICATION LIST-FLOMAX AND FINASTERIDE) Prostate Problems, Bladder Infection Gastrointestinal: No Musculoskeletal: Yes (S/P BACK SURGERY WITH HARDWARE IN PLACE) Chronic Back Pain Endocrine: No HEENT: No Cancer: No Psychosocial: Yes (ON EFFEXOR--UNKNOWN DX ) Integumentary: No Blood Disorders: No Family Medical History SOCIAL HISTORY: -DRINKS "AT LEAST 2 HIGHBALLS EVERY NIGHT" -DENIES DRUG USE -SMOKED A PIPE-STATES HE QUIT IN 1974 Physical Exam Vital Signs Vital Signs - First Documented 11/23/19 06:20 Temp 36.8 Pulse 85 Resp 18 B/P (MAP) 124/87 (99) Pulse Ox 99 O2 Delivery Room Air Height, Weight, BMI Height: '" Weight: lbs. oz. kg; 28.00 BMI Method: General Appearance: WD/WN, no apparent distress Eyes: bilateral eye normal inspection, bilateral eye PERRL, bilateral eye EOMI Ears: bilateral ear auricle normal, bilateral ear canal normal, bilateral ear TM normal Nose: normal inspection, active bleeding Mouth/Throat: normal mouth inspection, pharynx normal, dental tenderness Neck: non-tender, full range of motion, supple Cardiovascular: normal peripheral pulses, regular rate, rhythm Respiratory: lungs clear, normal breath sounds, no respiratory distress, no accessory muscle use Gastrointestinal: normal bowel sounds, non tender, soft Neurologic/Psychiatric: alert, normal mood/affect, oriented x 3 Skin: normal color, warm/dry Progress/Results/Core Measures Results/Orders Lab Results Laboratory Tests Test 11/23/19 06:45 Range/Units Group A Streptococcus Screen NEGATIVE NEGATIVE My Orders Orders - JAVAD HAMLIN Rapid Strep A Screen (11/23/19 06:51) Vital Signs/I&O 11/23/19 06:20 Temp 36.8 Pulse 85 Resp 18 B/P (MAP) 124/87 (99) Pulse Ox 99 O2 Delivery Room Air Progress Progress Note #1: Time: 06:53 Progress Note Patient declines to provide any blood samples. He says he doesn't really want to be here but he did accept doing a strep swab. He does not have cough shortness of air fever or history of such. He is not a COVID-19 PUI. He is redirectable but he has several times tried to walk out and since he is unstable on his feet and presumably drunk we have had to redirect him. He did cock his fists trying to hit the nurses a couple times and was artfully redirected. Staff has him in a wheelchair going up and down the halls of the ER with a mask on which is apparently distracting him for now. Phone call has been made to his nephew. He is oriented to time, place, self and somewhat situation. He has consistently insisted that he does not want to be in the ER and wants to go home. Progress Note #2: Time: 07:16 Progress Note The patient has declined to participate in care consistent stating he just wants to go home. We have gotten a hold of his nephews out of state but he's got a call the sister says if she can give him a ride home. He has been provided with water and offered something to eat for breakfast. He is oriented enough to make his own decisions and were going to allow him to go home without insisting it be AGAINST MEDICAL ADVICE. Departure Impression Primary Impression: Pharyngitis Qualified Codes: J02.9 - Acute pharyngitis, unspecified Disposition: 01 HOME, SELF-CARE Condition: Stable Departure-Patient Inst. Decision time for Depature: 07:15 Referrals: AMERICA DARNELL DO (PCP/Family) Primary Care Physician Patient Instructions: Sore Throat, Adult (DC) Add. Discharge Instructions: Follow-up primary care as necessary. Return to the ER if you have shortness of breath, chest pain or other worrisome symptoms. All discharge instructions reviewed with patient and/or family. Voiced understanding. JAVAD HAMLIN Nov 23, 2019 06:42
--- NOTE | 2019-11-23 06:57 | NUR ---
AFSHAN, PT NEPHEW CALLED A SECOND TIME AND MESSAGE LEFT FOR RIDE HOME. PT BELLIGERENT AND WILL NOT STAY IN ROOM.
--- NOTE | 2019-11-23 06:59 | NUR ---
PT ARRIVES BY EMS WITH SORE THROAT; PT HAS ODOR OF ETOH AND IS INTERMITTENTLY AGGRESSIVE WITH STAFF. PT IS ORIENTED TO SELF AND PLACE. PT IS UNWILLING TO ALLOW A BLOOD DRAW BUT WILLING TO ALLOW A THROAT SWAB. PT STOOD AND URINATED ON THE FLOOR. PT REORIENTED TO SITUATION AND ASKED TO STAY IN ROOM AND ON BED BUT HE CONTINUES TO AMBULATE OUT OF THE ROOM.
--- NOTE | 2019-11-23 07:08 | NUR ---
NEPHEW CALLED OUT OF TOWN WILL CALL SISTER TO SEE IF CAN GET HIM PICKED UP
--- NOTE | 2019-11-23 07:12 | NUR ---
REPORT TO VITO CASTRO.
--- NOTE | 2019-11-23 07:27 | NUR ---
PT RESTING IN BED AT THIS TIME. WARM BLANKETS FOR COMFORT.
--- NOTE | 2019-11-23 08:32 | NUR ---
FAMILY CALLED AND WILL BE HERE IN APPROXIMATELY 10 MINS TO PICK PATIENT UP. PT SITTING IN RECLYINER EATING HIS BREAKFAST AND DRINKING COFFEE.
[2019-11-23 09:08] VITALS: BP 121/78
[2019-11-23] MEDS ORDERED: PANT40TA3 PO (16:04)
== END 2019-11-23 09:08 | disposition home or self-care (01) ==
LOC: EDUNIT# 06:17 → ER 06:19
DX: J02.9 Acute pharyngitis, unspecified (principal); I10 Essential (primary) hypertension; I48.91 Unspecified atrial fibrillation; Z79.01 Long term (current) use of anticoagulants
CPT/HCPCS: 87430; 99284

== ENCOUNTER 2019-11-23 13:25 | Emergency (ER) | payer MEDICARE, OTHER ==
[~2019-11-23] VITALS: Ht 175.2 cm; Wt 79.3 kg
[2019-11-23] MEDS ORDERED: ONDANSETRON 4 MG/2 ML (SDV) Z0FRAN IVP ONE (13:30)
[2019-11-23] MEDS ORDERED: PANTOPRAZOLE 40 MG (PROTONIX) VIAL IV ONE (13:30)
[2019-11-23] MEDS ORDERED: LACTATED RINGERS 1,000 ML IV ONE (13:30)
--- NOTE | 2019-11-23 13:37 | ED Abdominal Pain ---
General Stated Complaint: N/V Source of Information: Patient Exam Limitations: No Limitations History of Present Illness Date Seen by Provider: Nov 23, 2019 Time Seen by Provider: 13:20 Initial Comments The patient presents to the ER by EMS with chief complaint of nausea and dry heaving. He is having some generalized abdominal discomfort. He does not recall being here earlier and this day nor does he recall this examiner. 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 He denies having any alcohol today but he also denies having eaten or drank anything today. On his prior visit this morning we did provide him with breakfast and he had a cup of fruit, cottage cheese and several cups of coffee. He says he's having some nausea now but no fevers chills. He has generalized abdominal discomfort. He cannot tell me a surgical history. He lives alone with several family members around that look in on him. He refused all care this morning except for a rapid strep screen which was negative. He denies having difficulty passing gas. He does not recall his last bowel movement. Allergies and Home Medications Allergies Coded Allergies: No Known Drug Allergies (Unverified , 08/10/19) Home Medications Albuterol Sulfate 1 Puff Puff, 2 PUFF INH Q4H 1 PUFF = 90 MCG Prescribed by: THOR LINDSAY on 08/11/19 1136 Amlodipine Besylate 5 Mg Tablet, 5 MG PO DAILY, (Reported) Apixaban 5 Mg Tablet, 5 MG PO 1200,1800, (Reported) TAKES TWICE DAILY @ 1200&1800 Cefdinir 300 Mg Capsule, 300 MG PO BID Prescribed by: JENIFER BARNEY on 09/03/19 1138 Digoxin 125 Mcg Tablet, 125 MCG PO DAILY, (Reported) Finasteride 5 Mg Tablet, 5 MG PO 1200, (Reported) Folic Acid 1 Mg Tablet, 1 MG PO DAILY, (Reported) Gabapentin 300 Mg Capsule, 300 MG PO TID, (Reported) Metoprolol Tartrate 50 Mg Tablet, 50 MG PO 1200,1800, (Reported) TAKES TWICE DAILY @1200&1800 Multivitamin 1 Each Tablet, 1 EACH PO DAILY, (Reported) [place]-3/Dha/Epa/Fish Oil 1 Each Capsule, 1 EACH PO DAILY, (Reported) Tamsulosin HCl 0.4 Mg Cap, 0.4 MG PO DAILY, (Reported) Venlafaxine HCl 75 Mg Cap.er.24h, 150 MG PO DAILY, (Reported) Verapamil HCl 80 Mg Tablet, 80 MG PO 1200,1800, (Reported) TAKES TWICE DAILY @1200&1800 Patient Home Medication List Home Medication List Reviewed: Yes Review of Systems Review of Systems Constitutional: No chills, No diaphoresis EENTM: No Blurred Vision, No Double Vision Respiratory: Denies Cough, Denies Shortness of Air Cardiovascular: Denies Chest Pain, Denies Edema Gastrointestinal: See HPI, Abdominal Pain; Denies Constipated, Denies Diarrhea; Nausea; Denies Poor Fluid Intake, Denies Vomiting Genitourinary: Denies Burning, Denies Discharge Musculoskeletal: No back pain, No joint pain All Other Systems Reviewed Negative Unless Noted: Yes Past Bmgxnbo-Xrypkj-Binbdi Hx Patient Social History Alcohol Use: Regular Use Alcohol Beverage of Choice: Cheap Liquor Recreational Drug Use: No Smoking Status: Current Everyday Smoker Type Used: Pipe Immunizations Up To Date Tetanus Booster (TDap): Less than 5yrs PED Vaccines UTD: Yes Date of Pneumonia Vaccine: Jan 09, 2019 Past Medical History Surgeries: Yes (BACK SURGERY-DR. SMITH) Orthopedic, Tonsillectomy Respiratory: No Cardiac: Yes Atrial Fibrillation, Hypertension Neurological: No (? NEUROPATHY OR RESTLESS LEGS ? ) Genitourinary: Yes (PROSTATE PROBLEMS PER MEDICATION LIST-FLOMAX AND FINASTERIDE) Prostate Problems, Bladder Infection Gastrointestinal: No Musculoskeletal: Yes (S/P BACK SURGERY WITH HARDWARE IN PLACE) Chronic Back Pain Endocrine: No HEENT: No Cancer: No Psychosocial: Yes (ON EFFEXOR--UNKNOWN DX ) Integumentary: No Blood Disorders: No Family Medical History SOCIAL HISTORY: -DRINKS "AT LEAST 2 HIGHBALLS EVERY NIGHT" -DENIES DRUG USE -SMOKED A PIPE-STATES HE QUIT IN 1974 Physical Exam Vital Signs Vital Signs - First Documented 11/23/19 13:25 Temp 37.4 Pulse 86 Resp 14 B/P (MAP) 150/114 (126) Pulse Ox 98 O2 Delivery Room Air Capillary Refill : Height/Weight/BMI Height: '" Weight: lbs. oz. kg; 31.00 BMI Method: General Appearance: WD/WN, no apparent distress HEENT: PERRL/EOMI, normal ENT inspection, pharynx normal Neck: full range of motion, supple, normal inspection Respiratory: lungs clear, normal breath sounds, no respiratory distress, no accessory muscle use Cardiovascular: normal peripheral pulses, regular rate, rhythm Peripheral Pulses: 2+ Radial Pulses (R), 2+ Radial Pulses (L) Gastrointestinal: normal bowel sounds, non tender, soft, no organomegaly Extremities: non-tender, normal inspection Neurologic/Psychiatric: alert, oriented x 3 Skin: normal color, warm/dry Progress/Results/Core Measures Results/Orders Lab Results Laboratory Tests Test 11/23/19 13:40 11/23/19 14:53 Range/Units White Blood Count 5.2 4.3-11.0 10^3/uL Red Blood Count 4.86 4.35-5.85 10^6/uL Hemoglobin 15.0 13.3-17.7 G/DL Hematocrit 43 40-54 % Mean Corpuscular Volume 89 80-99 FL Mean Corpuscular Hemoglobin 31 25-34 PG Mean Corpuscular Hemoglobin Concent 35 32-36 G/DL Red Cell Distribution Width 13.7 10.0-14.5 % Platelet Count 162 130-400 10^3/uL Mean Platelet Volume 9.2 7.4-10.4 FL Neutrophils (%) (Auto) 60 42-75 % Lymphocytes (%) (Auto) 24 12-44 % Monocytes (%) (Auto) 13 H 0-12 % Eosinophils (%) (Auto) 3 0-10 % Basophils (%) (Auto) 1 0-10 % Neutrophils # (Auto) 3.1 1.8-7.8 X 10^3 Lymphocytes # (Auto) 1.2 1.0-4.0 X 10^3 Monocytes # (Auto) 0.7 0.0-1.0 X 10^3 Eosinophils # (Auto) 0.1 0.0-0.3 10^3/uL Basophils # (Auto) 0.0 0.0-0.1 10^3/uL Prothrombin Time 14.2 12.2-14.7 SEC INR Comment 1.1 0.8-1.4 Sodium Level 143 135-145 MMOL/L Potassium Level 3.8 3.6-5.0 MMOL/L Chloride Level 105 98-107 MMOL/L Carbon Dioxide Level 23 21-32 MMOL/L Anion Gap 15 H 5-14 MMOL/L Blood Urea Nitrogen 7 7-18 MG/DL Creatinine 0.99 0.60-1.30 MG/DL Estimat Glomerular Filtration Rate > 60 BUN/Creatinine Ratio 7 Glucose Level 163 H 70-105 MG/DL Calcium Level 8.6 8.5-10.1 MG/DL Corrected Calcium 8.6 8.5-10.1 MG/DL Total Bilirubin 0.4 0.1-1.0 MG/DL Aspartate Amino Transf (AST/SGOT) 48 H 5-34 U/L Alanine Aminotransferase (ALT/SGPT) 16 0-55 U/L Alkaline Phosphatase 65 40-136 U/L Ammonia 29 11-32 UMOL/L C-Reactive Protein High Sensitivity 0.09 0.00-0.50 MG/DL Total Protein 7.4 6.4-8.2 GM/DL Albumin 4.0 3.2-4.5 GM/DL Lipase 31 8-78 U/L Serum Alcohol 148 H <10 MG/DL Urine Color YELLOW Urine Clarity CLEAR Urine pH 6.0 5-9 Urine Specific Justice 1.015 L 1.016-1.022 Urine Protein NEGATIVE NEGATIVE Urine Glucose (UA) NEGATIVE NEGATIVE Urine Ketones NEGATIVE NEGATIVE Urine Nitrite NEGATIVE NEGATIVE Urine Bilirubin NEGATIVE NEGATIVE Urine Urobilinogen 0.2 < = 1.0 MG/DL Urine Leukocyte Esterase NEGATIVE NEGATIVE Urine RBC (Auto) TRACE-I NEGATIVE Urine RBC RARE /HPF Urine WBC RARE /HPF Urine Squamous Epithelial Cells RARE /HPF Urine Crystals NONE /LPF Urine Bacteria NEGATIVE /HPF Urine Casts NONE /LPF Urine Mucus NEGATIVE /LPF Urine Culture Indicated NO My Orders Orders - JAVAD HAMLIN Ed Iv/Invasive Line Start (11/23/19 13:30) Lactated Ringers (Lr 1000 Ml Iv Solution (11/23/19 13:30) Ondansetron Injection (Zofran Injectio (11/23/19 13:30) Pantoprazole Injection (Protonix Injecti (11/23/19 13:30) Cbc With Automated Diff (11/23/19 13:30) Comprehensive Metabolic Panel (11/23/19 13:30) Hs C Reactive Protein (11/23/19 13:30) Lipase (11/23/19 13:30) Ua Culture If Indicated (11/23/19 13:30) Alcohol (11/23/19 13:30) Ct Abdomen/Pelvis W (11/23/19 13:30) Ct Head Wo (11/23/19 13:30) Chest 1 View, Ap/Pa Only (11/23/19 13:30) Protime With Inr (11/23/19 13:33) Ammonia (11/23/19 13:33) Thiamine Injection (Vitamin B-1 Injectio (11/23/19 14:00) Folic Acid Injection (Folic Acid Injecti (11/23/19 14:00) Iohexol Injection (Omnipaque 350 Mg/Ml 1 (11/23/19 14:15) Received Contrast (Hold Metformin- Contr (11/23/19 14:15) Sodium Chloride Flush (Catheter Flush Sy (11/23/19 14:15) Ns (Ivpb) (Sodium Chloride 0.9% Ivpb Bag (11/23/19 14:15) Medications Given in ED Current Medications Medications Dose Ordered Sig/Zayra Route Start Time Stop Time Status Last Admin Dose Admin Folic Acid 1 mg ONCE ONCE IV 11/23/19 14:00 11/23/19 14:01 DC 11/23/19 15:15 1 MG Iohexol 100 ml ONCE ONCE IV 11/23/19 14:15 11/23/19 14:17 DC 11/23/19 14:45 100 ML Lactated Ringer's 1,000 ml @ 0 mls/hr Q0M ONCE IV 11/23/19 13:30 11/23/19 13:33 DC 11/23/19 14:01 1,000 MLS/HR Ondansetron HCl 4 mg ONCE ONCE IVP 11/23/19 13:30 11/23/19 13:33 DC 11/23/19 14:01 4 MG Pantoprazole 40 mg ONCE ONCE IV 11/23/19 13:30 11/23/19 13:33 DC 11/23/19 14:01 40 MG Sodium Chloride 10 ml NEEDED PRN IV 11/23/19 14:15 11/23/19 14:46 10 ML Sodium Chloride 100 ml ONCE ONCE IV 11/23/19 14:15 11/23/19 14:17 DC 11/23/19 14:46 80 ML Thiamine HCl 100 mg ONCE ONCE IV 11/23/19 14:00 11/23/19 14:01 DC 11/23/19 14:02 100 MG Vital Signs/I&O 11/23/19 13:25 Temp 37.4 Pulse 86 Resp 14 B/P (MAP) 150/114 (126) Pulse Ox 98 O2 Delivery Room Air Progress Progress Note #1: Time: 13:47 Progress Note Patient appears to be cooperative with cares were going to get some labs including a UA, alcohol, ammonia and lipase. Plan to give him pantoprazole and Zofran. Liter lactated Ringer's, thiamine and and folate. Progress Note #2: Time: 15:09 Progress Note Unremarkable labs, CT of the chest x-ray. Alcohol level as expected for someone who drinks daily. He has received his dose of folic acid and thiamine. Diagnostic Imaging Diagonstic Imaging: Xray Plain Films/CT/US/NM/MRI: chest Comments [facility], [place] NAME: AMERICA COLBERT [facility] REC#: [id number] PT STATUS: REG ER : 1940 PHYSICIAN: JAVAD HAMLIN MD ADMIT DATE: 11/23/19/ER Draft Date of Exam:11/23/19 CHEST 1 VIEW, AP/PA ONLY INDICATION: Nausea and vomiting and altered mental status. TIME OF EXAM: 2:13 PM CORRELATION is made with prior chest from 11/18/2019. Heart size is stable. The lungs are clear. The pulmonary vascularity is normal. No infiltrate, effusion or pneumothorax is detected. IMPRESSION: No acute cardiopulmonary process is detected. Dictated on workstation # [id number] Dict: 11/23/19 1424 Trans: 11/23/19 1426 [facility] [id number] Interpreted by: BONITA CHAWLA MD Electronically signed by: Reviewed: Reviewed by Nh Diagonstic Imaging: CT Plain Films/CT/US/NM/MRI: head Comments [facility]. [place], [place] NAME: AMERICA COLBERT [place] [facility] REC#: [id number] PT STATUS: REG ER : 1940 PHYSICIAN: JAVAD HAMLIN MD ADMIT DATE: 11/23/19/ER Draft Date of Exam:11/23/19 CT HEAD WO PROCEDURE: CT head without contrast. TECHNIQUE: Multiple contiguous axial images were obtained through the brain without the use of intravenous contrast. Auto Exposure Controls were utilized during the CT exam to meet ALARA standards for radiation dose reduction. INDICATION: Altered mental status. COMPARISON: No prior studies are available for comparison. FINDINGS: Ventricles and sulci are somewhat prominent, consistent with cerebral atrophy. 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 No sulcal effacement or midline shift is detected. No acute intra-axial or extra-axial hemorrhage is detected. Cisterns are patent. Visualized paranasal sinuses are clear. IMPRESSION: Chronic changes. No acute intracranial process is detected. Dictated on workstation # [id number] Dict: 11/23/19 1453 Trans: 11/23/19 1457 [id number] Interpreted by: BONITA CHAWLA MD Electronically signed by: Reviewed: Reviewed by Me Diagonstic Imaging: CT Plain Films/CT/US/NM/MRI: abdomen, pelvis Comments NAME: AMERICA COLBERT [facility] REC#: [id number] PT STATUS: REG ER : 1940 PHYSICIAN: JAVAD HAMLIN MD ADMIT DATE: 11/23/19/ER Draft Date of Exam:11/23/19 CT ABDOMEN/PELVIS W EXAMINATION: CT Abdomen and Pelvis with intravenous contrast. TECHNIQUE: Multiple contiguous axial images were obtained through the abdomen and pelvis after the uneventful administration of intravenous contrast. All CT scans use one or more of the following dose optimizing techniques: automated exposure control, MA and/or KvP adjustment based on a patient size and exam type, or iterative reconstruction. HISTORY: Abdominal pain COMPARISON: 08/10/2019 point FINDINGS: Limited views of the lower thorax show mild atelectasis. The liver is normal without focal lesion. There is no biliary ductal dilation. Gallbladder is normal. Pancreas is normal. Spleen is normal. Adrenal glands are normal. There are areas of cortical scarring in the kidneys. No suspicious renal lesions are seen. There is no hydronephrosis. Urinary bladder is normal. There is an unchanged 8.3 x 6.8 cm cystic structure in the retroperitoneum on the left in the posterior pararenal space. Visualized bowel is normal in caliber without obstruction or inflammation. There is diverticulosis without diverticulitis. The appendix is normal. There is a small fat-containing umbilical hernia. No free fluid or air. Aorta is atherosclerotic and normal caliber. 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 There are no suspicious osseus lesions. There is no evidence of fusion of L4-L5. IMPRESSION: 1. No acute abnormality in the abdomen or pelvis. 2. 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 Dictated on workstation # [id number] Dict: 11/23/19 1455 Trans: 11/23/19 1510 [facility] [id number] Interpreted by: SHER FOWLER MD Electronically signed by: Reviewed: Reviewed by Me Departure Impression Primary Impression: Dementia Qualified Codes: F10.27 - Alcohol dependence with alcohol-induced persisting dementia Disposition: HOME, SELF-CARE Condition: Stable Departure-Patient Inst. Decision time for Depature: 15:30 Referrals: AMERICA DARNELL DO (PCP/Family) Primary Care Physician Patient Instructions: Dementia (Including Alzheimer Disease), Dementia (DC) Add. Discharge Instructions: Follow-up with your primary care doctor in the next 2-3 weeks. Pantoprazole 1 tablet daily. Scripts Pantoprazole Sodium (Pantoprazole Sodium) 40 Mg Tablet. 40 MG PO DAILY for 30 Days, #30 TAB 0 Refills Prov: JAVAD HAMLIN 11/23/19 JAVAD HAMLIN Nov 23, 2019 13:37
[2019-11-23 13:47] LABS: BASOPHILS % (AUTO) 1 % (0-10); EOSINOPHILS # (AUTO) 0.1 10^3/uL (0.0-0.3); EOSINOPHILS % (AUTO) 3 % (0-10); HEMATOCRIT 43 % (40-54); LYMPHOCYTES # (AUTO) 1.2 X 10^3 (1.0-4.0); LYMPHOCYTES % (AUTO) 24 % (12-44); MEAN CORPUSCULAR HEMOGLOBIN 31 PG (25-34); MEAN CORPUSCULAR HGB CONC 35 G/DL (32-36); MEAN CORPUSCULAR VOLUME 89 FL (80-99); MEAN PLATELET VOLUME 9.2 FL (7.4-10.4); MONOCYTES # (AUTO) 0.7 X 10^3 (0.0-1.0); MONOCYTES % (AUTO) 13 % (0-12); NEUTROPHILS # (AUTO) 3.1 X 10^3 (1.8-7.8); NEUTROPHILS % (AUTO) 60 % (42-75); PLATELET COUNT 162 10^3/uL (130-400); WHITE BLOOD COUNT 5.2 10^3/uL (4.3-11.0)
[2019-11-23 14:00] LABS: CHLORIDE 105 MMOL/L (98-107); POTASSIUM 3.8 MMOL/L (3.6-5.0); SODIUM 143 MMOL/L (135-145)
[2019-11-23] MEDS ORDERED: THIAMINE 100 MG/ML 2 ML (VITAMIN B-1) VIAL IV ONE (14:00)
[2019-11-23] MEDS ORDERED: FOLIC ACID 5MG/ML 10 ML IV ONE (14:00)
[2019-11-23 14:01] LABS: CALCIUM 8.6 MG/DL (8.5-10.1); INR 1.1 (0.8-1.4); PROTHROMBIN TIME PATIENT 14.2 SEC (12.2-14.7)
[2019-11-23 14:02] LABS: AMMONIA 29 UMOL/L (11-32)
[2019-11-23 14:03] LABS: GLUCOSE 163 MG/DL (70-105); TOTAL PROTEIN 7.4 GM/DL (6.4-8.2)
[2019-11-23 14:04] LABS: BILIRUBIN,TOTAL 0.4 MG/DL (0.1-1.0); CARBON DIOXIDE 23 MMOL/L (21-32)
[2019-11-23 14:06] LABS: ALKALINE PHOSPHATASE 65 U/L (40-136)
[2019-11-23 14:07] LABS: CREATININE SERUM 0.99 MG/DL (0.60-1.30); GFR ESTIMATED > 60
[2019-11-23 14:08] LABS: BUN/CREATININE RATIO 7
[2019-11-23 14:09] LABS: ALANINE AMINOTRANSFERASE 16 U/L (0-55)
[2019-11-23 14:10] LABS: LIPASE 31 U/L (8-78)
[2019-11-23] MEDS ORDERED: HOLD METFORMIN - RECEIVED CONTRAST 20 ML VIAL IV SCH (14:15)
[2019-11-23] MEDS ORDERED: NS 100 ML (IVPB) BAG IV ONE (14:15)
[2019-11-23] MEDS ORDERED: IOHEXOL 350 MG/ML 100 ML (OMNIPAQUE 350) VIAL IV ONE (14:15)
[2019-11-23] MEDS ORDERED: CATHETER FLUSH 10 ML SYR IV PRN (14:15)
--- NOTE | 2019-11-23 14:26 | Diagnostic Imaging Report ---
INDICATION: Nausea and vomiting and altered mental status. TIME OF EXAM: 2:13 PM CORRELATION is made with prior chest from 11/18/2019. Heart size is stable. The lungs are clear. The pulmonary vascularity is normal. No infiltrate, effusion or pneumothorax is detected. IMPRESSION: No acute cardiopulmonary process is detected. Dictated by: Dictated on workstation # [id number]
--- NOTE | 2019-11-23 14:57 | Diagnostic Imaging Report ---
PROCEDURE: CT head without contrast. TECHNIQUE: Multiple contiguous axial images were obtained through the brain without the use of intravenous contrast. Auto Exposure Controls were utilized during the CT exam to meet ALARA standards for radiation dose reduction. INDICATION: Altered mental status. COMPARISON: No prior studies are available for comparison. FINDINGS: Ventricles and sulci are somewhat prominent, consistent with cerebral atrophy. 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 No sulcal effacement or midline shift is detected. No acute intra-axial or extra-axial hemorrhage is detected. Cisterns are patent. Visualized paranasal sinuses are clear. IMPRESSION: Chronic changes. No acute intracranial process is detected. Dictated by: Dictated on workstation # [id number]
[2019-11-23 14:58] LABS: BILIRUBIN,URINE NEGATIVE (NEGATIVE); CLARITY,URINE CLEAR; COLOR,URINE YELLOW; GLUCOSE, URINE (UA) NEGATIVE (NEGATIVE); KETONES,URINE NEGATIVE (NEGATIVE); LEUKOCYTE ESTERASE ,URINE NEGATIVE (NEGATIVE); NITRITE,URINE NEGATIVE (NEGATIVE); PROTEIN,URINE NEGATIVE (NEGATIVE)
[2019-11-23 15:05] LABS: BACTERIA,URINE NEGATIVE /HPF; RBC,URINE RARE /HPF; SQUAMOUS EPITHELIAL CELL,UR RARE /HPF; WBC,URINE RARE /HPF
--- NOTE | 2019-11-23 15:11 | Diagnostic Imaging Report ---
EXAMINATION: CT Abdomen and Pelvis with intravenous contrast. TECHNIQUE: Multiple contiguous axial images were obtained through the abdomen and pelvis after the uneventful administration of intravenous contrast. All CT scans use one or more of the following dose optimizing techniques: automated exposure control, MA and/or KvP adjustment based on a patient size and exam type, or iterative reconstruction. HISTORY: Abdominal pain COMPARISON: 08/10/2019 point FINDINGS: Limited views of the lower thorax show mild atelectasis. The liver is normal without focal lesion. There is no biliary ductal dilation. Gallbladder is normal. Pancreas is normal. Spleen is normal. Adrenal glands are normal. There are areas of cortical scarring in the kidneys. No suspicious renal lesions are seen. There is no hydronephrosis. Urinary bladder is normal. There is an unchanged 8.3 x 6.8 cm cystic structure in the retroperitoneum on the left in the posterior pararenal space. Visualized bowel is normal in caliber without obstruction or inflammation. There is diverticulosis without diverticulitis. The appendix is normal. There is a small fat-containing umbilical hernia. No free fluid or air. Aorta is atherosclerotic and normal caliber. 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 There are no suspicious osseus lesions. There is no evidence of fusion of L4-L5. IMPRESSION: 1. No acute abnormality in the abdomen or pelvis. 2. 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 Dictated by: Dictated on workstation # [id number]
--- NOTE | 2019-11-23 15:54 | NUR ---
SPOKE WITH AFSHAN HIS NEPHEW AND HE WILL BY AND PICK HIM UP AFTER WORK.
[2019-11-23] MEDS ORDERED: PANT40TA3 PO (16:04)
[2019-11-23 16:07] VITALS: BP 151/107
== END 2019-11-23 16:07 ==
LOC: EDUNIT# 13:25 → ER 13:28
DX: F10.97 Alcohol use, unspecified with alcohol-induced persisting dementia (principal); F03.90 Unspecified dementia, unspecified severity, without behavioral disturbance, psychotic disturbance, mood disturbance, and anxiety; F17.200 Nicotine dependence, unspecified, uncomplicated; I48.91 Unspecified atrial fibrillation; I10 Essential (primary) hypertension; Z79.01 Long term (current) use of anticoagulants
CPT/HCPCS: 70450; 71045; 74177; 80053; 81000; 82140; 83690; 85025; 85610; 86141; 99284; G0480; 36415; 80320

== ENCOUNTER 2020-01-14 11:39 | Observation (INO) | payer MEDICARE, OTHER ==
[2020-01-14] VITALS (7 sets, daily range): BP systolic 121–160; BP diastolic 78–94
[~2020-01-14] VITALS: Ht 177.8 cm; Wt 96.4 kg
[~2020-01-14 11:39] MED LIST changes: +AMLO-250 PO; -AMLO5TAB9 PO; +PANT40TA52 PO
--- NOTE | 2020-01-14 12:02 | ED General ---
General Chief Complaint: General Problems/Pain Stated Complaint: AMS Source of Information: Patient Exam Limitations: Other (confused) History of Present Illness Date Seen by Provider: Jan 14, 2020 Time Seen by Provider: 11:45 Initial Comments Patient is a 79yo male who's brought to the Emergency Department by EMS after reportedly he called the sheriff deputy's department and claimed he was going to shoot himself. Both PD and EMS responded to the home. HE did have weapons. He denies being suicidal now. He doesnt seem to recollect any of the events of the morning. He currently has no complaints. His nephew called and stated that over the last couple of weeks his uncle has had progressive decline. He is scared for his safety at home and says that he would like him admitted to [facility] in [place], [place]. Timing/Duration: Changing Over Time, Getting Worse Severity: Severe Allergies and Home Medications Allergies Coded Allergies: No Known Drug Allergies (Unverified , 08/10/19) Home Medications Acetaminophen 325 Mg Tablet, 650 MG PO Q8H PRN for PAIN-MILD (1-4), (Reported) Amlodipine Besylate 5 Mg Tablet, 5 MG PO DAILY, (Reported) Apixaban 5 Mg Tablet, 5 MG PO BID, (Reported) Digoxin 125 Mcg Tablet, 125 MCG PO DAILY, (Reported) Diltiazem HCl 60 Mg Tablet, 60 MG PO BID, (Reported) Finasteride 5 Mg Tablet, 5 MG PO 1200, (Reported) Gabapentin 300 Mg Capsule, 300 MG PO TID, (Reported) Metoprolol Tartrate 50 Mg Tablet, 50 MG PO BID, (Reported) Multivitamin 1 Each Tablet, 1 EACH PO DAILY, (Reported) Sumter-3/Dha/Epa/Fish Oil 1 Each Capsule, 1 EACH PO DAILY, (Reported) Pantoprazole Sodium 40 Mg Tablet.dr, 40 MG PO DAILY, (Reported) LAST FILLED 11-23-2019 #30/30 DAY SUPPLY Tamsulosin HCl 0.4 Mg Cap, 0.4 MG PO DAILY, (Reported) LAST FILLED 11-05-2019 #30/30 DAY SUPPLY Venlafaxine HCl 75 Mg Cap.er.24h, 150 MG PO DAILY, (Reported) TAKES 2 (75MG) CAPS [Folic Acid] , 1 MG PO DAILY, (Reported) Patient Home Medication List Home Medication List Reviewed: Yes Review of Systems Review of Systems Constitutional: no symptoms reported EENTM: no symptoms reported Respiratory: no symptoms reported Cardiovascular: no symptoms reported Gastrointestinal: no symptoms reported Genitourinary: no symptoms reported Musculoskeletal: no symptoms reported Skin: no symptoms reported All Other Systems Reviewed Negative Unless Noted: Yes Past Wclaivr-Lkprfl-Orilaz Hx Patient Social History Alcohol Beverage of Choice: Cheap Liquor Type Used: Pipe Immunizations Up To Date Tetanus Booster (TDap): Less than 5yrs PED Vaccines UTD: Yes Date of Pneumonia Vaccine: Jan 09, 2019 Past Medical History Surgeries: Yes (BACK SURGERY-DR. SMITH) Orthopedic, Tonsillectomy Respiratory: No Cardiac: Yes Atrial Fibrillation, Hypertension Neurological: No (? NEUROPATHY OR RESTLESS LEGS ? ) Genitourinary: Yes (PROSTATE PROBLEMS PER MEDICATION LIST-FLOMAX AND FINASTERIDE) Prostate Problems, Bladder Infection Gastrointestinal: No Musculoskeletal: Yes (S/P BACK SURGERY WITH HARDWARE IN PLACE) Chronic Back Pain Endocrine: No HEENT: No Cancer: No Psychosocial: Yes (ON EFFEXOR--UNKNOWN DX ) Integumentary: No Blood Disorders: No Family Medical History SOCIAL HISTORY: -DRINKS "AT LEAST 2 HIGHBALLS EVERY NIGHT" -DENIES DRUG USE -SMOKED A PIPE-STATES HE QUIT IN 1974 Physical Exam Vital Signs Vital Signs - First Documented 01/14/20 01/14/20 01/14/20 11:45 15:54 23:12 Temp 36.7 Pulse 98 Resp 18 B/P (MAP) 135/95 (108) Pulse Ox 92 O2 Delivery Room Air O2 Flow Rate 2.00 Capillary Refill : Height, Weight, BMI Height: '" Weight: lbs. oz. 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 Norm as Tested, Abnormal Gait, Disoriented, Other (intermittently aggressive and belligerant; confused as to place and time; confused as to situation; required redirection multiple times;) Skin: Normal Color, Warm/Dry Progress/Results/Core Measures Suspected Sepsis SIRS Temperature: Pulse: Respiratory Rate: Laboratory Tests 01/14/20 13:29: White Blood Count 5.3 Blood Pressure / Mean: Laboratory Tests 01/14/20 13:29: Creatinine 1.07, Platelet Count 173, Total Bilirubin 0.9 Results/Orders Lab Results Laboratory Tests Test 01/17/20 04:50 Range/Units Serum Alcohol < 10 <10 MG/DL My Orders Medications Given in ED Vital Signs/I&O 01/16/20 01/16/20 01/17/20 01/17/20 19:22 20:00 00:00 04:00 Temp 36.7 36.3 36.4 Pulse 67 64 67 Resp 16 18 18 B/P (MAP) 102/70 (81) 130/88 (102) 119/78 (92) Pulse Ox 95 97 98 O2 Delivery Room Air Room Air Room Air Room Air Capillary Refill : Progress Note : Time: 12:14 Progress Note Patient became increasing agitated and aggressive with staff, at one point grabbing a nurse by the arms and yelling. Decision made to medicate Mr Sanford. 5mg of Geodon IM givin to calm him down. He is varying between truly aggressive behavior and compliance. Police were called for assistance. [address] Lujan who accepts patient for observation admission for AMS and intoxication. Patient remains confused, asking for his (who by report of his nephew, is ) and stating that he believes that his ran off with another woman. Departure Communication (Admissions) Time/Spoke to Admitting Phy: 14:[address] Lujan, who accepts patient for admission Impression Primary Impression: Altered mental status associated with intoxication Additional Impressions: History of dementia Alcohol intoxication Qualified Codes: F10.921 - Alcohol use, unspecified with intoxication delirium Disposition: ADMITTED INPATIENT Condition: Stable Admissions Decision to Admit Reason: Admit from ER (General) Decision to Admit/Date: Jan 14, 2020 Time/Decision to Admit Time: 14:55 Departure-Patient Inst. Referrals: AMERICA DARNELL DO (PCP/Family) Primary Care Physician CLARKE BOYLE MD Jan 14, 2020 12:02
[2020-01-14] MEDS ORDERED: ZIPRASIDONE 20 MG INJ (GEODON) VIAL IM ONE ×2 (12:11→12:15)
[2020-01-14] MEDS ORDERED: WATER (STERILE) FOR INJECTION 10 ML ONE (12:12)
--- NOTE | 2020-01-14 12:15 | NUR ---
PATIENT WALKING IN BIRD SHAKING FIST AT STAFF AND BEING AGRESSIVE. [employer] CALLED.
--- NOTE | 2020-01-14 12:20 | NUR ---
STACIAERWIN PEREZIN CALLED AND STATED THAT HE HAS DEMENTIA AND HAS BEEN DRINKING EVERY DAY. HAD A APPOINTMENT WITH DR DARNELL ON TUESDAY. IS POA AND REQUEST THAT HE GO TO [place].
--- NOTE | 2020-01-14 12:32 | NUR ---
PPD REMAINS IN ROOM WITH PATIENT
--- NOTE | 2020-01-14 13:26 | NUR ---
REPORT TO ARNOLD PADRON
[2020-01-14 13:34] LABS: BASOPHILS # (AUTO) 0.1 10^3/uL (0.0-0.1); BASOPHILS % (AUTO) 1 % (0-10); EOSINOPHILS # (AUTO) 0.1 10^3/uL (0.0-0.3); EOSINOPHILS % (AUTO) 2 % (0-10); HEMATOCRIT 47 % (40-54); HEMOGLOBIN 16.2 g/dL (13.3-17.7); LYMPHOCYTES # (AUTO) 1.7 10^3/uL (1.0-4.0); LYMPHOCYTES % (AUTO) 32 % (12-44); MEAN CORPUSCULAR HEMOGLOBIN 33 pg (25-34); MEAN CORPUSCULAR HGB CONC 35 g/dL (32-36); MEAN CORPUSCULAR VOLUME 94 fL (80-99); MEAN PLATELET VOLUME 9.5 fL (9.0-12.2); MONOCYTES # (AUTO) 0.6 10^3/uL (0.0-1.0); MONOCYTES % (AUTO) 11 % (0-12); NEUTROPHILS # (AUTO) 2.8 10^3/uL (1.8-7.8); NEUTROPHILS % (AUTO) 53 % (42-75); PLATELET COUNT 173 10^3/uL (130-400); WHITE BLOOD COUNT 5.3 10^3/uL (4.3-11.0)
[2020-01-14 13:47] LABS: CHLORIDE 103 MMOL/L (98-107); POTASSIUM 3.9 MMOL/L (3.6-5.0); SODIUM 141 MMOL/L (135-145)
[2020-01-14 13:48] LABS: ALBUMIN 4.2 GM/DL (3.2-4.5)
[2020-01-14 13:49] LABS: CALCIUM 9.2 MG/DL (8.5-10.1)
[2020-01-14 13:50] LABS: GLUCOSE 155 MG/DL (70-105)
[2020-01-14 13:52] LABS: BILIRUBIN,TOTAL 0.9 MG/DL (0.1-1.0); CARBON DIOXIDE 22 MMOL/L (21-32)
[2020-01-14 13:54] LABS: ALKALINE PHOSPHATASE 77 U/L (40-136); CREATININE SERUM 1.07 MG/DL (0.60-1.30); GFR ESTIMATED > 60
[2020-01-14 13:55] LABS: BILIRUBIN,URINE NEGATIVE (NEGATIVE); CLARITY,URINE CLEAR; COLOR,URINE YELLOW; GLUCOSE, URINE (UA) NEGATIVE (NEGATIVE); KETONES,URINE NEGATIVE (NEGATIVE); LEUKOCYTE ESTERASE ,URINE NEGATIVE (NEGATIVE); NITRITE,URINE NEGATIVE (NEGATIVE); PH,URINE 5.5 (5-9); PROTEIN,URINE NEGATIVE (NEGATIVE)
[2020-01-14 13:56] LABS: BUN/CREATININE RATIO 7
[2020-01-14 13:57] LABS: ACETAMINOPHEN < 10 UG/ML (10-30); ALANINE AMINOTRANSFERASE 24 U/L (0-55); SALICYLATE < 5.0 MG/DL (5.0-20.0)
[2020-01-14 14:01] LABS: BACTERIA,URINE NEGATIVE /HPF
--- NOTE | 2020-01-14 15:30 | NUR ---
REPORT RECEIVED FROM ARNOLD PADRON ER
--- NOTE | 2020-01-14 16:42 | NUR ---
CALLED [facility] IN [place] TO SEE IF PT HAS RECEIVED THE FLU AND PNEUMONIA VACCINE. NO ANSWER, HOUR OF OPERATION FROM 8-5PM. WILL PASS INFO ALONG TO NEXT RN TO CALL TOMORROW AM.
--- NOTE | 2020-01-14 16:45 | NUR ---
MESSAGE SENT TO DR LOPEZ REGARDING DVT PROPHYLAXIS MED, AWAITING ORDERS.
[2020-01-14] MEDS: meTOprolol TARTRATE 50 MG (LOPRESSOR) TAB PO SCH (17:26)
[2020-01-14] MEDS: VERAPAMIL 80 MG (ISOPTIN) TAB PO SCH (17:26)
[2020-01-14] MEDS: TAMSULOSIN 0.4 MG (FLOMAX) CAP PO SCH (17:26)
[2020-01-14] MEDS ORDERED: MELATONIN 3 MG TABLET PO PRN (17:45)
[2020-01-14] MEDS ORDERED: BENZONATATE 100 MG (TESSALON) CAPSULE PO PRN (17:45)
[2020-01-14] MEDS ORDERED: ANTACID SUSP 30 ML UDC (MYLANTA) PO PRN (17:45)
[2020-01-14] MEDS ORDERED: MILK OF MAGNESIA 400 MG/5 ML 30 ML UDC PO PRN (17:45)
[2020-01-14] MEDS ORDERED: ONDANSETRON 4 MG/2 ML (SDV) Z0FRAN IV PRN (17:45)
[2020-01-14] MEDS ORDERED: ACETAMINOPHEN 325 MG TABLET PO PRN (17:45)
[2020-01-14] MEDS ORDERED: ZIPRASIDONE 20 MG INJ (GEODON) VIAL IM PRN (17:45)
[2020-01-14] MEDS ORDERED: RT-ALBUTEROL SULF 2.5 MG/3 ML PRE-MIX VIAL INH PRN (18:00)
[2020-01-14] MEDS: APIXABAN 5 MG (ELIQUIS) TABLET PO SCH (20:32)
[2020-01-14] MEDS ORDERED: ONDANSETRON 4 MG (ZOFRAN) ORAL DISSOLVE TAB ONE (21:43)
[2020-01-14] MEDS: ONDANSETRON 4 MG (ZOFRAN) ORAL DISSOLVE TAB PO PRN (21:48)
[2020-01-15] VITALS (7 sets, daily range): BP systolic 107–174; BP diastolic 66–91
[2020-01-15] MEDS: ONDANSETRON 4 MG (ZOFRAN) ORAL DISSOLVE TAB PO PRN ×3 (01:42→17:32)
[2020-01-15] MEDS: PANTOPRAZOLE 40 MG (PROTONIX) TAB PO SCH (09:22)
[2020-01-15] MEDS: amLODIPine 5 MG (NORVASC) TAB PO SCH (09:22)
[2020-01-15] MEDS: APIXABAN 5 MG (ELIQUIS) TABLET PO SCH ×2 (09:22→20:36)
[2020-01-15] MEDS: DIGOXIN 0.125 MG (LANOXIN) TAB PO SCH (09:22)
[2020-01-15] MEDS ORDERED: PANT40TA52 PO (10:38)
[2020-01-15] MEDS ORDERED: Folic Acid PO (10:38)
[2020-01-15] MEDS ORDERED: ACET325T38 PO (10:38)
[2020-01-15] MEDS ORDERED: DILT60TA PO (10:38)
--- NOTE | 2020-01-15 10:41 | NUR ---
I SPOKE WITH THE PTS NEPHEW (AFSHAN) AND GOT A MEDICATION LIST FROM [facility] TO COMPLETE THE MED REC AFSHAN AND I WENT OVER EACH MEDICATION AND HE WAS ABLE TO TELL ME HOW THE PT TAKES EACH THE FOLLOWING ARE FILL DATES ACCORDING TO HU VELAZQUEZ: 11-05-2019 TAMSULOSIN 0.4MG #30/30DS- I DID DOCUMENT THE PAST DUE FILL ON THE MED REC 11-23-2019 PANTOPRAZOLE 40MG #30/30DS- I DID DOCUMENT THE PAST DUE FILL ON THE MED REC 12-19-2019 FINASTERIDE 5MG #30/30DS 12-19-2019 DILTIAZEM 60MG #60/30DS 12-19-2019 VENLAFAXINE ER 75MG #60/30DS 12-19-2019 AMLODIPINE 5MG #30/30DS 12-19-2019 GABAPENTIN 300MG #90/30 01-03-2020 ELIQUIS 5MG #60/30DS 01-03-2020 DIGOXIN 0.125MG #30/30DS 01-03-2020 FOLIC ACID 1MG #30/30DS 01-03-2020 METOPROLOL TART 50MG #60/30DS OTC MEDS: TYLENOL MTV FISH OIL
--- NOTE | 2020-01-15 12:41 | History & Physical-Hospitalist ---
History of Present Illness HPI/Chief Complaint Pt is a 79yoCM with a PMH of alcohol abuse, dementia who presented to the ER due via police escort as he called the commercial hvac technician's department and said he was going to shoot himself. He does not recall any of this and when I told him he states "I must have been drunk." When the police arrived he did have weapons on him. He denies thoughts of self harm now but stated then "I always have weapons." In the ER he became quite agitated and required Dallin to cooperate with staff. Since that time he has be compliant and cooperative. He states he is nauseated this morning but is not vomiting. Source: patient Date Seen 01/15/20 Time Seen by a Provider: 12:37 Attending Physician Emmy Lujan MD PCP [place] DO Referring Physician Date of Admission Jan 14, 2020 at 15:05 Home Medications & Allergies Home Medications Reviewed patient Home Medication Reconciliation performed by pharmacy medication reconciliations restoration technician and/or nursing. Patients Allergies have been reviewed. Allergies Allergies Coded Allergies No Known Drug Allergies (Unverified08/10/19) Past Dhcasgp-Guvygb-Xpuwte Hx Past Med/Social Hx: Reviewed Nursing Past Med/Soc Hx Patient Social History Alcohol Use: Regular Use Alcohol Beverage of Choice: Cheap Liquor Recreational Drug Use: No Smoking Status: Former Smoker Type Used: Pipe Recent Foreign Travel: No Contact w/other who traveled: No Recent Infectious Disease Expo: No Immunizations Up To Date Tetanus Booster (TDap): Less than 5yrs Pediatric: Yes Date of Pneumonia Vaccine: Jan 09, 2019 Past Medical History Surgeries: Orthopedic, Tonsillectomy Respiratory: Pneumonia Cardiac: Atrial Fibrillation, Hypertension Genitourinary: Prostate Problems, Bladder Infection Musculoskeletal: Chronic Back Pain ETOHism History of Blood Disorders: No Family History Reviewed Nursing Family Hx SOCIAL HISTORY: -DRINKS "AT LEAST 2 HIGHBALLS EVERY NIGHT" -DENIES DRUG USE -SMOKED A PIPE-STATES HE QUIT IN 1974 Review of Systems ROS-Unable to Obtain: limited by dementia Constitutional: see HPI Psychiatric/Neurological: See HPI Physical Exam Physical Exam Vital Signs Vital Signs - First Documented 01/14/20 01/14/20 01/14/20 11:45 15:54 23:12 Temp 36.7 Pulse 98 Resp 18 B/P (MAP) 135/95 (108) Pulse Ox 92 O2 Delivery Room Air O2 Flow Rate 2.00 Capillary Refill : Less Than 3 SecondsLess Than 3 Seconds Height, Weight, BMI Height: '" Weight: lbs. oz. kg; 30.49 BMI Method: General Appearance: No Apparent Distress, WD/WN HEENT: PERRL/EOMI, Moist Mucous Membranes; No Scleral Icterus (L), No Scleral Icterus (R) Neck: Normal Inspection, Supple Respiratory: Lungs Clear, No Accessory Muscle Use, No Respiratory Distress Cardiovascular: Regular Rate, Rhythm, No Murmur Gastrointestinal: Normal Bowel Sounds, Non Tender, Soft Extremity: No Calf Tenderness, No Pedal Edema Neurologic/Psychiatric: Alert, Depressed Affect, Other (oriented to person and place) Skin: Normal Color, Warm/Dry Results Results/Procedures Labs Patient resulted labs reviewed. Assessment/Plan Admission Diagnosis Suicidal Ideation Admission Status: Observation Assessment and Plan Suicidal Ideation Alcohol intoxication Has history of suicide attempts and psych admissions Given that he was found with weapons I am concerned that he would complete suicide if discharged home Telesitter in place [facility] requests him to be sober for 3 days prior to evaluating Will continue to search for psych admission Wernicke's Encephalopathy Alcoholism [facility] protocol Baseline confusion from wernicke's Chronic AF Continue home meds DVt ppx: Eliquis Clinical Quality Measures DVT/VTE Risk/Contraindication: Risk Factor Score Per Nursin RFS Level Per Nursing on Admit: 4+=Very High EMMY LUJAN MD Jan 15, 2020 12:41
[2020-01-15] MEDS: VERAPAMIL 80 MG (ISOPTIN) TAB PO SCH ×2 (12:55→17:32)
[2020-01-15] MEDS: meTOprolol TARTRATE 50 MG (LOPRESSOR) TAB PO SCH ×2 (12:55→17:32)
--- NOTE | 2020-01-15 13:08 | NUR ---
MARGUERITE/MITUL visited with patient for social service consult. MARGUERITE/MITUL was informed by the patient's physician that patient will need an inpatient [facility] psych placement. MARGUERITE/MITUL contacted [facility] to make a referral. MARGUERITE/MITUL faxed referral. This sw received call from Ashley at facility stating at this time they cannot take patient. She states he needs to be detoxed for 3 days () and his police involvement at the hospital "is more than they can handle right now". Ashley reports they would be more than willing to look back over it on . MARGUERITE/MITUL asked for assistance from Macy PADRON to contact additional Behavioral Health units for bed placement.
[2020-01-15] MEDS: GABAPENTIN 300 MG (NEURONTIN) CAP PO SCH ×2 (14:52→20:36)
--- NOTE | 2020-01-15 15:13 | NUR ---
[facility] Psych placement exploration: [facility]- no beds available [facility]- no psych unit anymore [facility]- no psych unit anymore [facility] in [place], [place]- Patient will need to detox at least three days before they will consider him for admission. They recommend having him screened to determine if he is deemed as needing inpatient treatment. [facility]- message left and no return phone call [facility]-no beds available [facility] in [place], [place]-No beds available and can not accept across [facility] lines [facility] in [place], [place]- would not accept d/t patient needs to be voluntary and/or if patient was involuntary then they would not accept [facility] in [place], [place]- They have been in communication with us and did take information on the patient however they spoke with the primary care nurse and the patient is unwilling to go that far for psych treatment. They report that they can not accept if he is not voluntary.
[2020-01-15] MEDS ORDERED: 1/2 NS IV SOLUTION 1,000 ML IV PRN (15:40)
[2020-01-15] MEDS ORDERED: LORazepam INJ 2 MG/ML (ATIVAN) VIAL IV PRN (15:45)
[2020-01-15] MEDS ORDERED: ONDANSETRON 4 MG/2 ML (SDV) Z0FRAN IV PRN (15:45)
[2020-01-15] MEDS ORDERED: LORazepam 1 MG (ATIVAN) TAB PO PRN (15:45)
[2020-01-15] MEDS ORDERED: ONDANSETRON 4 MG (ZOFRAN) ORAL DISSOLVE TAB SL PRN (15:45)
[2020-01-15] MEDS ORDERED: D5 1/2 NS 1000 ML IV SOLUTION 1,000 ML IV PRN (15:45)
[2020-01-15] MEDS ORDERED: SENNA W/DOCUSATE (SENOKOT S) TABLET PO PRN (15:45)
[2020-01-15] MEDS ORDERED: ANTACID SUSP 30 ML UDC (MYLANTA) PO PRN (15:45)
[2020-01-15] MEDS ORDERED: LORazepam INJ 2 MG/ML (ATIVAN) VIAL IM/IV PRN (15:45)
[2020-01-15] MEDS: TAMSULOSIN 0.4 MG (FLOMAX) CAP PO SCH (17:32)
[2020-01-15] MEDS: MAGNESIUM OXIDE (MAG-OX)400 MG TAB PO SCH (20:36)
[2020-01-16 04:14] VITALS: BP 148/97
[2020-01-16] MEDS: MULTIVIT W/MINERALS TAB (THERAGRAN M) PO SCH (06:04)
[2020-01-16] MEDS: THIAMINE 100 MG (VITAMIN B-1) TAB PO SCH (06:04)
[2020-01-16 07:25] VITALS: BP 131/83
[2020-01-16] MEDS: PANTOPRAZOLE 40 MG (PROTONIX) TAB PO SCH (08:11)
[2020-01-16] MEDS: GABAPENTIN 300 MG (NEURONTIN) CAP PO SCH ×3 (08:11→20:06)
[2020-01-16] MEDS: FOLIC ACID 1 MG TAB PO SCH (08:12)
[2020-01-16] MEDS: amLODIPine 5 MG (NORVASC) TAB PO SCH (08:12)
[2020-01-16] MEDS: VENlafaxine XR 75 MG (EFFEXOR XR) CAP PO SCH (08:12)
[2020-01-16] MEDS: DIGOXIN 0.125 MG (LANOXIN) TAB PO SCH (08:12)
[2020-01-16] MEDS: APIXABAN 5 MG (ELIQUIS) TABLET PO SCH ×2 (08:12→20:06)
[2020-01-16] MEDS: MAGNESIUM OXIDE (MAG-OX)400 MG TAB PO SCH ×2 (08:12→20:06)
--- NOTE | 2020-01-16 09:59 | Progress Note - Hospitalist ---
Subjective HPI/CC On Admission Date Seen by Provider: Jan 16, 2020 Time Seen by Provider: 09:56 Pt is a 79yoCM with a PMH of alcohol abuse, dementia who presented to the ER due via police escort as he called the bellstaff's department and said he was going to shoot himself. He does not recall any of this and when I told him he states "I must have been drunk." When the police arrived he did have weapons on him. He denies thoughts of self harm now but stated then "I always have weapons." In the ER he became quite agitated and required Dallin to cooperate with staff. Since that time he has be compliant and cooperative. He states he is nauseated this morning but is not vomiting. Subjective/Events-last exam Pt reports doing ok. No specific complaints. Discussed plan to look for [facility] placement which he is at times agreeable too. He did not outright state that he wanted to kill himself still to me (though he did to the social worker assistant) but he did recount how all of his friends and family have . Objective Exam Vital Signs Vital Signs Date Time Temp Pulse Resp B/P (MAP) Pulse Ox O2 Delivery O2 Flow Rate FiO2 01/16/20 08:00 97 Room Air 01/16/20 07:25 36.2 72 18 131/83 (99) 01/14/20 23:12 2.00 Capillary Refill : Less Than 3 SecondsLess Than 3 Seconds General Appearance: No Apparent Distress, WD/WN, Chronically ill Respiratory: Lungs Clear, No Respiratory Distress Cardiovascular: Regular Rate, Rhythm, No Murmur Gastrointestinal: Normal Bowel Sounds, Non Tender, Soft Neurologic/Psychiatric: Alert, Oriented x3 (but poor short term recall) Results/Procedures Lab Patient resulted labs reviewed. Assessment/Plan Assessment and Plan Assess & Plan/Chief Complaint Suicidal Ideation Alcohol intoxication Has history of suicide attempts and psych admissions Given that he was found with weapons I am concerned that he would complete suicide if discharged home Telesitter in place [facility] requests him to be sober for 3 days prior to evaluating Will continue to search for psych admission He continues to endorse suicidal ideation Wernicke's Encephalopathy Alcoholism [facility] protocol Baseline confusion from wernicke's Oriented to person, place, and major details but has poor short term recall Chronic AF Continue home meds DVt ppx: Eliquis Clinical Quality Measures DVT/VTE Risk/Contraindication: Risk Factor Score Per Nursin RFS Level Per Nursing on Admit: 4+=Very High EMMY LOPEZ MD Jan 16, 2020 09:59
[2020-01-16 10:52] VITALS: BP 142/94
[2020-01-16 12:00] VITALS: BP 142/94
[2020-01-16] MEDS: VERAPAMIL 80 MG (ISOPTIN) TAB PO SCH ×2 (12:40→17:28)
[2020-01-16] MEDS: meTOprolol TARTRATE 50 MG (LOPRESSOR) TAB PO SCH ×2 (12:40→17:28)
--- NOTE | 2020-01-16 13:36 | NUR ---
"RD ASSESSMENT PMHx: ETOH abuse; Wernicke's encephalopathy; HTN; afib; dementia; PT INTERACTION: Pt was awake and pleasant during nutrition assessment. Note pt has dementia, per chart review. Pt states current appetite is good. Note avg PO intake 50% x2d, per chart review. Pt states following a regular diet at home, and has no issues with chewing/swallowing food. Note pt has hx of ETOH abuse, per chart review. Pt states no recent issues with nausea, vomiting or diarrhea. Pt states some recent issues with constipation. Note episodes of emesis on 01/14, per chart review. Note last BM was 01/14, and pt currently on bowel regimen of senna PRN, per chart review. Pt states no recent wt changes. Note recent 7# wt gain x5mon, per chart review. ABNORMAL NUTRITION-RELATED LAB VALUES LOW: HIGH: glu 155; AST 79 Est. kcal needs: 0588-7740 kcal | 20-25 kcal/kg Est. Pro needs: 77-96 g Pro | 0.8-1.0 g Pro/kg PES STATEMENT: Inadequate oral intake (NI-2.1) related to loss of appetite and constipation, as evidenced by pt interview and avg PO intake 50% x2d. INTERVENTION: Continue with current diet order of 2000mg Na diet. Pt may benefit from nutrition supplementation if PO intake declines. Encouraged pt to eat when able. Will continue to follow and reassess as pt needs, intake, and status change. Chris Lamas, MS RD LD"
--- NOTE | 2020-01-16 14:13 | NUR ---
CM/SS follow up. CM/SS visited with patient. The patient was sitting up in bed drinking coffee. He states he feels good today and "he always feels good". The patient does not remember the conversation between him and this sw the day before. CM/SS attempted to talk with him again about [facility] placement. The patient asked this sw why he would need that. This sw explained what brought him into the hospital and how [facility] can help. The patent stated "So your telling me, that you want to take away my right to take my own life?" The patient then stated "Next time I wont even call the police, I'll just do it." CM/SS ensure the patient we are here to help, he stated " Well then get me a gun." The patient would switch from being agitated to telling stories and laughing. CM/SS spoke with David from [facility] due to patient not being willing for behavioral health placement and still making suicidal comments. David reports that he cannot screen him due to dementia and not being able to do an involuntary placement. MARGUERITE/SS contacted Isha at [facility] to discuss case. She reports that at this time patient's [facility] would be making the decision for placement and sign him in. Isha reports this sw will need to send updated labs and alcohol level with clinicals on . MARGUERITE/SS verbalized understanding. MARGUERITE/SS contacted [facility] to discuss discharge plans. CM/SS gave an update regarding inpatient rehab referrals. MARGUERITE/SS informed him this sw will resend referral on . MARGUERITE/MITUL discussed discharge plans for after behavioral health referral. He states they will plan for a [facility] placement. CM/MITUL will continue to follow.
[2020-01-16 15:28] VITALS: BP 102/72
[2020-01-16] MEDS: TAMSULOSIN 0.4 MG (FLOMAX) CAP PO SCH (17:28)
[2020-01-16 19:22] VITALS: BP 102/70
--- NOTE | 2020-01-16 21:00 | NUR ---
DURING ASSESSMENT OF PT TELESITTER IS NOT IN ROOM. THIS RN ATTEMPTED TO PUT TELESITTER IN ROOM PT BECAME VERY AGITATED. STATES ITS AGAINST MY RIGHTS FOR YOU TO WATCH ME. EDUCATION ATTEMPTED. EDUCATION UNSUCCESSFUL. THIS RN REMOVED TELESITTER AT THIS TIME. WILL REASSESS PT. BED ALARM SET. CALL LIGHT WITHIN REACH. PT EDUCATED TO CALL WHEN NEEDING ASSISTANCE. PT STATES UNDERSTANDING.
--- NOTE | 2020-01-16 23:36 | NUR ---
PT ASSISTED TO BATHROOM AT THIS TIME. PT BACK TO BED. BED ALARM SET. CALL LIGHT WITHIN REACH.
[2020-01-17] VITALS: BP 130/88
[2020-01-17 04:00] VITALS: BP 119/78
[2020-01-17] MEDS: MULTIVIT W/MINERALS TAB (THERAGRAN M) PO SCH (06:26)
[2020-01-17] MEDS: THIAMINE 100 MG (VITAMIN B-1) TAB PO SCH (06:26)
[2020-01-17 08:12] VITALS: BP 109/71
--- NOTE | 2020-01-17 09:05 | NUR ---
Primary care nurse Keira PADRON is busy with other patient needs at this time. Rapid COVID swab collected, paper work filled out, and sent to lab. Contacted lab to let them know that patient is ordered for a rapid test. No further interventions noted at this time.
--- NOTE | 2020-01-17 09:12 | Discharge Summary ---
Diagnosis/Chief Complaint Date of Admission Jan 14, 2020 at 15:05 Date of Discharge Discharge Date: Jan 17, 2020 Admission Diagnosis Suicidal Ideation Primary Care Brooks Mills DO Discharge Summary Discharge Physical Exam Allergies: Coded Allergies: No Known Drug Allergies (Unverified , 08/10/19) Vitals & I&Os Vital Signs Date Time Temp Pulse Resp B/P (MAP) Pulse Ox O2 Delivery O2 Flow Rate FiO2 01/17/20 12:45 36.5 86 20 115/81 96 Room Air 01/14/20 23:12 2.00 General Appearance: No Apparent Distress, WD/WN Respiratory: Lungs Clear, No Respiratory Distress Cardiovascular: Regular Rate, Rhythm, No Murmur Neurologic/Psychiatric: Alert, Other (oriented to person and place, poor short term recall) Hospital Course Pt was admitted due to suicidal ideation and alcohol intoxication. He was admitted to monitor detoxing off alcohol and did well. He needed no ativan or other CIWA measures. He continued to have suicidal ideation expressed to the social service technician. He was agreeable to placement at [facility] as was his DPOA. He was discharged in stable condition to [facility]. Labs (last 24 hrs) Laboratory Tests 01/17/20 04:50: Serum Alcohol < 10 01/17/20 09:05: Coronavirus 2019 (ARASH) Negative Patient resulted labs reviewed. Pending Labs Laboratory Tests 01/17/20 09:05: Coronavirus 2019 (ARASH) Negative Discussion & Recommendations Discharge Planning: >30 minutes discharge planning Discharge Home Medications: Active Scripts Active Reported Tylenol (Acetaminophen) 325 Mg Tablet 650 Mg PO Q8H PRN Pantoprazole Sodium 40 Mg Tablet.dr 40 Mg PO DAILY LAST FILLED 11-23-2019 # DAY SUPPLY Diltiazem HCl 60 Mg Tablet 60 Mg PO BID [Folic Acid] 1 Mg PO DAILY Multivitamin 1 Each Tablet 1 Each PO DAILY Fish Oil 1,000 mg Softgel ([place]-3/Dha/Epa/Fish Oil) 1 Each Capsule 1 Each PO DAILY Flomax (Tamsulosin HCl) 0.4 Mg Cap 0.4 Mg PO DAILY LAST FILLED 11-05-2019 #30 DAY SUPPLY Neurontin (Gabapentin) 300 Mg Capsule 300 Mg PO TID Eliquis (Apixaban) 5 Mg Tablet 5 Mg PO BID Venlafaxine HCl ER (Venlafaxine HCl) 75 Mg Cap.er.24h 150 Mg PO DAILY TAKES 2 (75MG) CAPS Finasteride 5 Mg Tablet 5 Mg PO 1200 Amlodipine Besylate 5 Mg Tablet 5 Mg PO DAILY Metoprolol Tartrate 50 Mg Tablet 50 Mg PO BID Digoxin 125 Mcg Tablet 125 Mcg PO DAILY Instructions to patient/family Please see electronic discharge instructions given to patient. Clinical Quality Measures DVT/VTE Risk/Contraindication: Risk Factor Score Per Nursin RFS Level Per Nursing on Admit: 4+=Very High EMMY LOPEZ MD Jan 17, 2020 09:12
[2020-01-17] MEDS: FOLIC ACID 1 MG TAB PO SCH (09:47)
[2020-01-17] MEDS: PANTOPRAZOLE 40 MG (PROTONIX) TAB PO SCH (09:47)
[2020-01-17] MEDS: amLODIPine 5 MG (NORVASC) TAB PO SCH (09:47)
[2020-01-17] MEDS: MAGNESIUM OXIDE (MAG-OX)400 MG TAB PO SCH (09:47)
[2020-01-17] MEDS: GABAPENTIN 300 MG (NEURONTIN) CAP PO SCH (09:47)
[2020-01-17] MEDS: DIGOXIN 0.125 MG (LANOXIN) TAB PO SCH (09:47)
[2020-01-17] MEDS: APIXABAN 5 MG (ELIQUIS) TABLET PO SCH (09:47)
[2020-01-17] MEDS: VENlafaxine XR 75 MG (EFFEXOR XR) CAP PO SCH (09:52)
--- NOTE | 2020-01-17 09:59 | NUR ---
CM/SS finalized discharge. Plan: Patient will discharge to [facility] today 01/16. Transportation is set for product picker at 11:15 a.m. GBH: Ashley from the facility contacted this sw and reported that they have accepted patient for admission today. She requested that the patient be admitted today, fax updated clinical and labs, and have a Covid swab completed. The Covid swab is still pending at this time. CM/SS will fax results when available. CM/SS provided the nurse with the nursing report number. CM/SS informed Aide on product picker time. CM/SS contacted the patient's DPOA Adams to inform him of patient's acceptance to facility. He verbalized understanding. He did not have any further questions for us at this time. CM/SS visited with patient. He was lying in bed. He was calm, alert, and cooperative. The patient's Aide verbalized to this sw that the patient was willing to go to facility and was stated he needed to for his medications. CM/SS asked the patient if he was agreeable with plan for [facility]. Patient reported he was and wanted this sw to contact DPOA to inform him of transfer. CM/SS contacted the Hospital Transportation and spoke with Bren. other sales support worker time set for 11:15 a.m.
--- NOTE | 2020-01-17 11:07 | NUR ---
REPORT TO VITO OBRIEN PSYCH. PATIENT IS A/O. VERBALIZES UNDERSTANDING OF PLACEMENT. DENIES ANY NEEDS OR C/O AT THIS TIME. CONT TO MONITOR.
--- NOTE | 2020-01-17 11:33 | NUR ---
AMERICA COLBERT discharged to [facility]. NICOLAS CLEMONS notified of discharge and report given to VITO OBRIEN. AMERICA COLBERT belongings sent with PATIENT. Skin dry and intact; no breakdown noted. SALINE LOCK REMOVED, PRESSURE APPLIED. Vital signs are stable at time of discharge.BP 115/86, HR 86, T 36.2, 96%RA. Condition is stable at time of discharge. Discharge instructions and copies of H&P, discharge summary, physician's order, lab reports, consultation reports, other dictated reports, diagnostic imaging reports, Advance Directive, eMAR, vital signs, intake and output sent with PATIENT. Patient discharged from [facility] on 01/16@1140. AMERICA COLBERT left floor via WC, accompanied by STAFF. AMERICA COLBERT and family/DPOA notified and verbalize understanding of discharge to [facility].
[2020-01-17 12:45] VITALS: BP 115/81
[2020-01-17] MEDS ORDERED: meTOprolol TARTRATE 25 MG (LOPRESSOR) TABLET PO SCH (21:00)
== END 2020-01-17 11:33 | disposition other institution (70) ==
LOC: EDUNIT# 11:39 → ER 11:40 → 4TH 15:05 → UNDOADMOB 15:05 → 4TH 15:50 → UNDODISOB 01-17 11:40
PROVIDERS: ADMIT Family Medicine; ATTEND Family Medicine
DX: F10.121 Alcohol abuse with intoxication delirium (principal); R45.851 Suicidal ideations; F03.90 Unspecified dementia, unspecified severity, without behavioral disturbance, psychotic disturbance, mood disturbance, and anxiety; I10 Essential (primary) hypertension; I48.20 Chronic atrial fibrillation, unspecified; E51.2 Wernicke's encephalopathy; N42.9 Disorder of prostate, unspecified; M54.9 Dorsalgia, unspecified; G89.29 Other chronic pain; Z79.899 Other long term (current) drug therapy; Z87.891 Personal history of nicotine dependence; Z87.01 Personal history of pneumonia (recurrent)
CPT/HCPCS: 80053; 80162; 81000; 85025; 94760; 96372; 99284; G0378; G0480 ×4; U0002; 36415; 80320; 80329; 87635

== ENCOUNTER → 2020-02-06 | Outpatient (CLI) | payer OTHER, MEDICARE ==
[~2020-02-06] MED LIST changes: +ACET325T38 PO; +DILT60TA PO; +Folic Acid PO
== END ==
LOC: GIR 15:50
PROVIDERS: ATTEND Nurse Practitioner Family
DX: Z20.828 Contact with and (suspected) exposure to other viral communicable diseases (principal)
CPT/HCPCS: 87635

== ENCOUNTER 2020-02-15 22:41 | Emergency (ER) | payer MEDICARE, OTHER ==
[~2020-02-15] VITALS: Ht 177.8 cm; Wt 90.7 kg
[2020-02-15] MEDS ORDERED: LACTATED RINGERS 1,000 ML IV ONE (22:45)
[2020-02-15] MEDS ORDERED: ONDANSETRON 4 MG/2 ML (SDV) Z0FRAN IVP ONE (22:45)
--- NOTE | 2020-02-15 22:53 | ED Fall/Injury ---
General Stated Complaint: FALLS Source: patient Exam Limitations: no limitations History of Present Illness Date Seen by Provider: Feb 15, 2020 Time Seen by Provider: 22:47 Initial Comments Patient presents to ER from home with chief complaint of falls. He has had multiple falls today but is not having any pain anywhere. He is having some mild nausea. He has chronic alcoholism with frequent falls. He denies dysuria cough shortness of air fever chills. Allergies and Home Medications Allergies Coded Allergies: No Known Drug Allergies (Unverified , 08/10/19) Home Medications Acetaminophen 325 Mg Tablet, 650 MG PO Q8H PRN for PAIN-MILD (1-4), (Reported) Amlodipine Besylate 5 Mg Tablet, 5 MG PO DAILY, (Reported) Apixaban 5 Mg Tablet, 5 MG PO BID, (Reported) Digoxin 125 Mcg Tablet, 125 MCG PO DAILY, (Reported) Diltiazem HCl 60 Mg Tablet, 60 MG PO BID, (Reported) Finasteride 5 Mg Tablet, 5 MG PO 1200, (Reported) Gabapentin 300 Mg Capsule, 300 MG PO TID, (Reported) Metoprolol Tartrate 50 Mg Tablet, 50 MG PO BID, (Reported) Multivitamin 1 Each Tablet, 1 EACH PO DAILY, (Reported) [place]-3/Dha/Epa/Fish Oil 1 Each Capsule, 1 EACH PO DAILY, (Reported) Pantoprazole Sodium 40 Mg Tablet.dr, 40 MG PO DAILY, (Reported) LAST FILLED 11-23-2019 #30/ DAY SUPPLY Tamsulosin HCl 0.4 Mg Cap, 0.4 MG PO DAILY, (Reported) LAST FILLED 11-05-2019 #30/ DAY SUPPLY Venlafaxine HCl 75 Mg Cap.er.24h, 150 MG PO DAILY, (Reported) TAKES 2 (75MG) CAPS [Folic Acid] , 1 MG PO DAILY, (Reported) Patient Home Medication List Home Medication List Reviewed: Yes Review of Systems Review of Systems Constitutional: No chills, No diaphoresis Eyes: Denies Blindness, Denies Drainage Ears, Nose, Mouth, Throat: denies ear pain, denies nose pain Respiratory: No cough, No short of breath Cardiovascular: No edema, No palpitations Gastrointestinal: No abdominal pain; nausea; No vomiting Genitourinary: No discharge, No dysuria Musculoskeletal: No back pain, No joint pain All Other Systems Reviewed Negative Unless Noted: Yes Past Fkxmspb-Uvolfv-Honbff Hx Patient Social History Alcohol Use: Regular Use Alcohol Beverage of Choice: Cheap Liquor Recreational Drug Use: No Smoking Status: Current Everyday Smoker Type Used: Pipe Immunizations Up To Date Tetanus Booster (TDap): Less than 5yrs PED Vaccines UTD: Yes Date of Pneumonia Vaccine: Jan 09, 2019 Past Medical History Surgeries: Yes (BACK SURGERY-DR. SMITH) Orthopedic, Tonsillectomy Respiratory: No Cardiac: Yes Atrial Fibrillation, Hypertension Neurological: No (? NEUROPATHY OR RESTLESS LEGS ? 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 oz. kg; 30.49 BMI Method: General Appearance: WD/WN, no apparent distress HEENT: PERRL/EOMI, normal ENT inspection, pharynx normal Neck: full range of motion, supple, normal inspection Cardiovascular: normal peripheral pulses, regular rate, rhythm Respiratory: lungs clear, normal breath sounds, no respiratory distress, no accessory muscle use Peripheral Pulses: 2+ Radial Pulses (R), 2+ Radial Pulses (L) Gastrointestinal: normal bowel sounds, non tender, soft Extremities: non-tender, normal inspection, normal capillary refill Neurologic/Psychiatric: alert, normal mood/affect, oriented x 3 Skin: normal color, warm/dry Kun Coma Score Best Eye Response: (4) Open Spontaneously Best Verbal Response: (5) Oriented Best Motor Response: (6) Obeys Commands Kun Total: 15 Progress/Results/Core Measures Results/Orders Lab Results Laboratory Tests Test 02/15/20 22:50 Range/Units White Blood Count 5.5 4.3-11.0 10^3/uL Red Blood Count 4.87 4.30-5.52 10^6/uL Hemoglobin 15.5 13.3-17.7 g/dL Hematocrit 45 40-54 % Mean Corpuscular Volume 91 80-99 fL Mean Corpuscular Hemoglobin 32 25-34 pg Mean Corpuscular Hemoglobin Concent 35 32-36 g/dL Red Cell Distribution Width 12.7 10.0-14.5 % Platelet Count 184 130-400 10^3/uL Mean Platelet Volume 9.7 9.0-12.2 fL Immature Granulocyte % (Auto) 0 % Neutrophils (%) (Auto) 54 42-75 % Lymphocytes (%) (Auto) 33 12-44 % Monocytes (%) (Auto) 10 0-12 % Eosinophils (%) (Auto) 1 0-10 % Basophils (%) (Auto) 1 0-10 % Neutrophils # (Auto) 3.0 1.8-7.8 10^3/uL Lymphocytes # (Auto) 1.8 1.0-4.0 10^3/uL Monocytes # (Auto) 0.6 0.0-1.0 10^3/uL Eosinophils # (Auto) 0.1 0.0-0.3 10^3/uL Basophils # (Auto) 0.1 0.0-0.1 10^3/uL Immature Granulocyte # (Auto) 0.0 0.0-0.1 10^3/uL Sodium Level 144 135-145 MMOL/L Potassium Level 3.9 3.6-5.0 MMOL/L Chloride Level 100 98-107 MMOL/L Carbon Dioxide Level 21 21-32 MMOL/L Anion Gap 23 H 5-14 MMOL/L Blood Urea Nitrogen 4 L 7-18 MG/DL Creatinine 0.91 0.60-1.30 MG/DL Estimat Glomerular Filtration Rate > 60 BUN/Creatinine Ratio 4 Glucose Level 173 H 70-105 MG/DL Calcium Level 8.9 8.5-10.1 MG/DL Corrected Calcium 8.7 8.5-10.1 MG/DL Total Bilirubin 0.8 0.1-1.0 MG/DL Aspartate Amino Transf (AST/SGOT) 41 H 5-34 U/L Alanine Aminotransferase (ALT/SGPT) 23 0-55 U/L Alkaline Phosphatase 73 40-136 U/L Total Protein 7.8 6.4-8.2 GM/DL Albumin 4.2 3.2-4.5 GM/DL My Orders Orders - JAVAD HAMLIN Ct Head/Cervical Spine Wo (02/15/20 22:45) Ed Iv/Invasive Line Start (02/15/20 22:45) Lactated Ringers (Lr 1000 Ml Iv Solution (02/15/20 22:45) Cbc With Automated Diff (02/15/20 22:45) Comprehensive Metabolic Panel (02/15/20 22:45) Ondansetron Injection (Zofran Injectio (02/15/20 22:45) Medications Given in ED Current Medications Medications Dose Ordered Sig/Zayra Route Start Time Stop Time Status Last Admin Dose Admin Lactated Ringer's 1,000 ml @ 0 mls/hr Q0M ONCE IV 02/15/20 22:45 02/15/20 22:48 DC 02/15/20 23:00 999 MLS/HR Ondansetron HCl 4 mg ONCE ONCE IVP 02/15/20 22:45 02/15/20 22:48 DC 02/15/20 23:00 4 MG Vital Signs/I&O 02/15/20 22:45 Temp 36.6 Pulse 117 Resp 14 B/P (MAP) 157/114 (128) Pulse Ox 97 Progress Progress Note #1: Time: 22:53 Progress Note Basic labs. The patient is not expressing pain anywhere. Liter fluids, CT of the head and C-spine. Vital signs are normal. Progress Note #2: Time: 00:04 Progress Note Pt is ambulatory and eager to go home. He wants his Nephew to take him home with does not have a phone number for him. We called dispatch and got just in Sid's number and he agrees to be here in about 30-45 minutes to pick the patient up. Initial ECG Impression Date: Feb 15, 2020 Initial ECG Impression Time: 22:55 Initial ECG Rate: 100 Initial ECG Rhythm: A Fib/Flutter Initial ECG Intervals: QT (443) Initial ECG Impression: Atrial Fibrillation Comment Atrial fibrillation without rapid ventricular response. No clinically relevant ST changes. Diagnostic Imaging Diagonstic Imaging: CT Plain Films/CT/US/NM/MRI: c-spine, head Comments No intracranial hemorrhage or other acute intracranial abnormality. Global parenchymal volume loss with chronic microvascular ischemic changes. No fracture or traumatic malalignment of the cervical spine. Reviewed: Reviewed by Me Departure Impression Primary Impression: History of recent fall Disposition: 01 HOME, SELF-CARE Condition: Stable Departure-Patient Inst. Decision time for Depature: 23:40 Referrals: AMERICA DARNELL DO (PCP/Family) Primary Care Physician Patient Instructions: Getting Up From a Fall Add. Discharge Instructions: Drink some extra fluids over the next day or so as you're mildly dehydrated. We did give her a bag of IV fluids. Follow-up with your primary care doctor if you're having further problems on Tuesday. Return to the ER if you're having intractable pain, confusion or other worrisome symptoms. JAVAD HAMLIN J Feb 15, 2020 22:53
[2020-02-15 22:59] LABS: BASOPHILS # (AUTO) 0.1 10^3/uL (0.0-0.1); BASOPHILS % (AUTO) 1 % (0-10); EOSINOPHILS # (AUTO) 0.1 10^3/uL (0.0-0.3); EOSINOPHILS % (AUTO) 1 % (0-10); HEMATOCRIT 45 % (40-54); HEMOGLOBIN 15.5 g/dL (13.3-17.7); LYMPHOCYTES # (AUTO) 1.8 10^3/uL (1.0-4.0); LYMPHOCYTES % (AUTO) 33 % (12-44); MEAN CORPUSCULAR HEMOGLOBIN 32 pg (25-34); MEAN CORPUSCULAR HGB CONC 35 g/dL (32-36); MEAN CORPUSCULAR VOLUME 91 fL (80-99); MEAN PLATELET VOLUME 9.7 fL (9.0-12.2); MONOCYTES # (AUTO) 0.6 10^3/uL (0.0-1.0); MONOCYTES % (AUTO) 10 % (0-12); NEUTROPHILS % (AUTO) 54 % (42-75); PLATELET COUNT 184 10^3/uL (130-400); WHITE BLOOD COUNT 5.5 10^3/uL (4.3-11.0)
[2020-02-15 23:27] LABS: ALANINE AMINOTRANSFERASE 23 U/L (0-55); ALBUMIN 4.2 GM/DL (3.2-4.5); ALKALINE PHOSPHATASE 73 U/L (40-136); BILIRUBIN,TOTAL 0.8 MG/DL (0.1-1.0); BUN/CREATININE RATIO 4; CALCIUM 8.9 MG/DL (8.5-10.1); CARBON DIOXIDE 21 MMOL/L (21-32); CHLORIDE 100 MMOL/L (98-107); CREATININE SERUM 0.91 MG/DL (0.60-1.30); GFR ESTIMATED > 60; GLUCOSE 173 MG/DL (70-105); POTASSIUM 3.9 MMOL/L (3.6-5.0); SODIUM 144 MMOL/L (135-145); TOTAL PROTEIN 7.8 GM/DL (6.4-8.2)
[2020-02-16 00:30] VITALS: BP 145/109
--- NOTE | 2020-02-16 07:27 | Diagnostic Imaging Report ---
PROCEDURE: CT head and CT cervical spine without contrast. TECHNIQUE: Multiple contiguous axial images were obtained through the brain and cervical spine without the use of intravenous contrast. Sagittal and coronal reformations through the cervical spine were then performed. Auto Exposure Controls were utilized during the CT exam to meet ALARA standards for radiation dose reduction. INDICATION: Unwitnessed fall, pain and bruising. Head CT compared 11/23/2019. HEAD: Atrophy, periventricular white matter disease and old lacunar infarct versus a prominent Virchow-Sukh space in the inferomedial right temporal lobe is stable chronic findings. There is no hemorrhage and no calvarial fracture deformity. No hemo-sinus. No pneumocephalus. No focal or generalized edema. No evidence for elevated pressures. No acute appearing findings. CERVICAL SPINE: Body heights and alignment within normal limits. No cervical fracture or paravertebral hemorrhage. Central skull base appeared intact. No paraspinal mass, hemorrhage or fluid collection. Teague-Cervical hypertrophic facet arthrosis present resulting in a biforaminal bony stenoses moderate to severe at the C3/C4 level, moderate greater left than right at C4-C5 moderate to severe bilaterally at C5-6 and at least moderate greater left at C6-C7 and C7-T1. IMPRESSION: HEAD: Stable chronic senescent findings. No hemorrhage or fracture. CT CERVICAL SPINE: No fracture or traumatic malalignment, chronic degenerative changes with multilevel bony foraminal stenoses. Dictated by: Dictated on workstation # [id number]
== END 2020-02-16 00:42 | disposition home or self-care (01) ==
LOC: EDUNIT# 22:41 → ER 22:42
DX: R29.6 Repeated falls (principal); I10 Essential (primary) hypertension; I48.91 Unspecified atrial fibrillation; R40.2410 Glasgow coma scale score 13-15, unspecified time; F17.200 Nicotine dependence, unspecified, uncomplicated; Z79.01 Long term (current) use of anticoagulants
CPT/HCPCS: 36415; 70450; 72125; 80053; 85025

== ENCOUNTER 2020-12-10 11:42 | Emergency (ER) | payer MEDICARE, OTHER ==
[~2020-12-10] VITALS: Ht 178 cm; Wt 91.0 kg
[~2020-12-10 11:42] MED LIST changes: -FOLI1TAB24 PO; +FOLI1TAB33 PO; +MIRT-68; -MIRT15TA6
--- NOTE | 2020-12-10 13:39 | ED General ---
General Chief Complaint: Hip/Pelvic Problems Stated Complaint: FALL Nursing Triage Note: Pt to ED by EMS from home with report of fall and hip pain. EMS reports pt did not hit his head, no LOC, walked to their cart when they picked him up, and that the pt was seen at [place] [facility] for falls over the last few days. Pt has dementia. When asked what happened, pt replied "I don't know." When asked what's wrong, the pt stated "I don't know. Nothing." When asked if the pt was in any pain, pt stated "no." (NEVAEH GOLDBERG) History of Present Illness Date Seen by Provider: Dec 10, 2020 Time Seen by Provider: 12:15 Initial Comments 80 year old male brought by EMS. He is unsure why he was brought here, said he sits on the floor to play with the dog and he sleeps on the floor. When others find him on the floor, they assume he has fallen and call EMS. He isn't sure who called EMS today. He denies any pain. He has been getting in and out of bed, independently. He can state his full name, season as fall, but can't state year or month. He states he is at [facility]. Niece reports that police found hi m wandering outside his home and confused, so EMS was called. He is ambulatory, with no pain in legs or hips. No bruises or injuries noted. He was evaluated 3 times in the last 2 days at [facility] for similar issues. Family had him at [facility] last year and then he returned home. He has caregivers present at night but not always during the day. The niece and nephew are POAs and they are trying to obtain guardianship, as he usually tries to leave the residential after being admitted. He is brought here in a pair of underwear and a shirt. No pants or shoes. Associated Systoms: Denies Symptoms (NEVAEH GOLDBERG) Allergies and Home Medications Allergies Coded Allergies: No Known Drug Allergies (Unverified , 08/10/19) Patient Home Medication List Home Medication List Reviewed: Yes (NEVAEH GOLDBERG) Acetaminophen (Tylenol) 325 Mg Tablet, 650 MG PO Q8H PRN for PAIN-MILD (1-4), (Reported) Entered as Reported by: CHELSI KINCAID on 01/15/20 1038 Amlodipine Besylate (Amlodipine Besylate) 5 Mg Tablet, 5 MG PO DAILY, (Reported) Entered as Reported by: STEPHON RIOS on 08/10/19356 Apixaban (Eliquis) 5 Mg Tablet, 5 MG PO BID, (Reported) Entered as Reported by: STEPHON RIOS on 08/10/19356 Digoxin (Digoxin) 125 Mcg Tablet, 125 MCG PO DAILY, (Reported) Entered as Reported by: STEPHON RIOS on 08/10/19356 Diltiazem HCl (Diltiazem HCl) 60 Mg Tablet, 60 MG PO BID, (Reported) Entered as Reported by: CHELSI KINCAID on 01/15/20 1038 Finasteride (Finasteride) 5 Mg Tablet, 5 MG PO 1200, (Reported) Entered as Reported by: STEPHON RIOS on 08/10/19356 Gabapentin (Neurontin) 300 Mg Capsule, 300 MG PO TID, (Reported) Entered as Reported by: STEPHON RIOS on 08/10/19356 Metoprolol Tartrate (Metoprolol Tartrate) 50 Mg Tablet, 50 MG PO BID, (Reported) Entered as Reported by: STEPHON RIOS on 08/10/19356 Multivitamin (Multivitamin) 1 Each Tablet, 1 EACH PO DAILY, (Reported) Entered as Reported by: CHELSI KINCAID on 08/10/191509 [place]-3/Dha/Epa/Fish Oil (Fish Oil 1,000 mg Softgel) 1 Each Capsule, 1 EACH PO DAILY, (Reported) Entered as Reported by: CHELSI KINCAID on 08/10/191509 Pantoprazole Sodium (Pantoprazole Sodium) 40 Mg Tablet.dr, 40 MG PO DAILY, (Reported) Entered as Reported by: CHELSI KINCAID on 01/15/20 1038 Tamsulosin HCl (Flomax) 0.4 Mg Cap, 0.4 MG PO DAILY, (Reported) Entered as Reported by: STEPHON RIOS on 08/10/19356 Venlafaxine HCl (Venlafaxine HCl ER) 75 Mg Cap.er.24h, 150 MG PO DAILY, (Reported) Entered as Reported by: STEPHON RIOS on 08/10/19356 [Folic Acid] , 1 MG PO DAILY, (Reported) Entered as Reported by: CHELSI KINCAID on 01/15/20 1038 Review of Systems Review of Systems Constitutional: no symptoms reported, see HPI Respiratory: no symptoms reported, see HPI Cardiovascular: no symptoms reported, see HPI Gastrointestinal: no symptoms reported, see HPI Skin: no symptoms reported, see HPI Psychiatric/Neurological: No Symptoms Reported, See HPI (NEVAEH GOLDBERG) All Other Systems Reviewed Negative Unless Noted: Yes (NEVAEH GOLDBERG) Past Qdwlnwt-Gbcmfu-Zuojdi Hx Immunizations Up To Date Tetanus Booster (TDap): Less than 5yrs PED Vaccines UTD: Yes (NEVAEH GOLDBERG) Past Medical History Surgeries: Yes (BACK SURGERY-DR. SMITH) Orthopedic, Tonsillectomy Respiratory: No Cardiac: Yes Atrial Fibrillation, Hypertension Neurological: No (? NEUROPATHY OR RESTLESS LEGS ? ) Genitourinary: Yes (PROSTATE PROBLEMS PER MEDICATION LIST-FLOMAX AND FINASTERIDE) Prostate Problems, Bladder Infection Gastrointestinal: No Musculoskeletal: Yes (S/P BACK SURGERY WITH HARDWARE IN PLACE) Chronic Back Pain Endocrine: No HEENT: No Cancer: No Psychosocial: Yes (ON EFFEXOR--UNKNOWN DX ) Integumentary: No Blood Disorders: No (NEVAEH GOLDBERG) Family Medical History Reviewed Nursing Family Hx (NEVAEH GOLDBERG) SOCIAL HISTORY: -DRINKS "AT LEAST 2 HIGHBALLS EVERY NIGHT" -DENIES DRUG USE -SMOKED A PIPE-STATES HE QUIT IN 1974 (NEVAEH GOLDBERG) Physical Exam Vital Signs Vital Signs - First Documented 12/10/20 12/10/20 12:26 18:12 Temp 36.8 Pulse 84 Resp 18 B/P (MAP) 138/102 (114) Pulse Ox 98 O2 Delivery Room Air (JUJU CORTES MD) Vital Signs Capillary Refill : Less Than 3 Seconds (NEVAEH GOLDBERG) Height, Weight, BMI Height: '" Weight: lbs. oz. kg; 28.00 BMI Method: General Appearance: No Apparent Distress, WD/WN Eyes: Bilateral Eye Normal Inspection, Bilateral Eye PERRL HEENT: PERRL/EOMI, TMs Normal, Normal ENT Inspection, Pharynx Normal Neck: Full Range of Motion, Normal Inspection, Non Tender, Supple Respiratory: Chest Non Tender, Lungs Clear, Normal Breath Sounds Cardiovascular: Regular Rate, Rhythm, No Edema, No Murmur, Normal Peripheral Pulses Gastrointestinal: Normal Bowel Sounds, Non Tender, Soft Extremity: Normal Capillary Refill, Normal Inspection, Normal Range of Motion, Non Tender, No Calf Tenderness, No Pedal Edema Neurologic/Psychiatric: Alert, No Motor/Sensory Deficits, Normal Mood/Affect, Other (Oriented to person, place and season) Skin: Normal Color, Warm/Dry; No Ecchymosis (NEVAEH GOLDBERG) Progress/Results/Core Measures Suspected Sepsis SIRS Temperature: Pulse: 84 Respiratory Rate: 18 Laboratory Tests 12/10/20 12:00: White Blood Count 5.9 Blood Pressure 138 /102 Mean: 114 Laboratory Tests 12/10/20 12:00: Creatinine 1.30, Platelet Count 166, Total Bilirubin 1.6H (NEVAEH GOLDBERG) Results/Orders Lab Results Laboratory Tests Test 12/10/20 12:00 12/10/20 14:02 Range/Units White Blood Count 5.9 4.3-11.0 10^3/uL Red Blood Count 4.67 4.30-5.52 10^6/uL Hemoglobin 15.2 13.3-17.7 g/dL Hematocrit 44 40-54 % Mean Corpuscular Volume 94 80-99 fL Mean Corpuscular Hemoglobin 33 25-34 pg Mean Corpuscular Hemoglobin Concent 35 32-36 g/dL Red Cell Distribution Width 12.3 10.0-14.5 % Platelet Count 166 130-400 10^3/uL Mean Platelet Volume 10.6 9.0-12.2 fL Immature Granulocyte % (Auto) 0 % Neutrophils (%) (Auto) 59 42-75 % Lymphocytes (%) (Auto) 23 12-44 % Monocytes (%) (Auto) 15 H 0-12 % Eosinophils (%) (Auto) 1 0-10 % Basophils (%) (Auto) 1 0-10 % Neutrophils # (Auto) 3.5 1.8-7.8 10^3/uL Lymphocytes # (Auto) 1.4 1.0-4.0 10^3/uL Monocytes # (Auto) 0.9 0.0-1.0 10^3/uL Eosinophils # (Auto) 0.1 0.0-0.3 10^3/uL Basophils # (Auto) 0.1 0.0-0.1 10^3/uL Immature Granulocyte # (Auto) 0.0 0.0-0.1 10^3/uL Sodium Level 139 135-145 MMOL/L Potassium Level 3.7 3.6-5.0 MMOL/L Chloride Level 103 98-107 MMOL/L Carbon Dioxide Level 22 21-32 MMOL/L Anion Gap 14 5-14 MMOL/L Blood Urea Nitrogen 9 7-18 MG/DL Creatinine 1.30 0.60-1.30 MG/DL Estimat Glomerular Filtration Rate 53 BUN/Creatinine Ratio 7 Glucose Level 146 H 70-105 MG/DL Calcium Level 8.3 L 8.5-10.1 MG/DL Corrected Calcium 8.9 8.5-10.1 MG/DL Total Bilirubin 1.6 H 0.1-1.0 MG/DL Aspartate Amino Transf (AST/SGOT) 34 5-34 U/L Alanine Aminotransferase (ALT/SGPT) 16 0-55 U/L Alkaline Phosphatase 68 40-136 U/L Total Protein 6.6 6.4-8.2 GM/DL Albumin 3.3 3.2-4.5 GM/DL Serum Alcohol < 10 <10 MG/DL Urine Color YELLOW Urine Clarity CLEAR Urine pH 6.5 5-9 Urine Specific [place] <=1.005 1.016-1.022 Urine Protein NEGATIVE NEGATIVE Urine Glucose (UA) NEGATIVE NEGATIVE Urine Ketones NEGATIVE NEGATIVE Urine Nitrite NEGATIVE NEGATIVE Urine Bilirubin NEGATIVE NEGATIVE Urine Urobilinogen 0.2 < = 1.0 MG/DL Urine Leukocyte Esterase NEGATIVE NEGATIVE Urine RBC (Auto) NEGATIVE NEGATIVE Urine RBC NONE /HPF Urine WBC NONE /HPF Urine Squamous Epithelial Cells 0-2 /HPF Urine Crystals NONE /LPF Urine Bacteria NEGATIVE /HPF Urine Casts NONE /LPF Urine Mucus NEGATIVE /LPF Urine Culture Indicated NO Urine Opiates Screen NEGATIVE NEGATIVE Urine Oxycodone Screen NEGATIVE NEGATIVE Urine Methadone Screen NEGATIVE NEGATIVE Urine Propoxyphene Screen NEGATIVE NEGATIVE Urine Barbiturates Screen NEGATIVE NEGATIVE Ur Tricyclic Antidepressants Screen NEGATIVE NEGATIVE Urine Phencyclidine Screen NEGATIVE NEGATIVE Urine Amphetamines Screen NEGATIVE NEGATIVE Urine Methamphetamines Screen NEGATIVE NEGATIVE Urine Benzodiazepines Screen NEGATIVE NEGATIVE Urine Cocaine Screen NEGATIVE NEGATIVE Urine Cannabinoids Screen NEGATIVE NEGATIVE (JUJU CORTES MD) Vital Signs/I&O 12/10/20 12/10/20 12:26 18:12 Temp 36.8 Pulse 84 82 Resp 18 17 B/P (MAP) 138/102 (114) 130/72 Pulse Ox 98 O2 Delivery Room Air (JUJU CORTES MD) Vital Signs/I&O Capillary Refill : Less Than 3 Seconds (NEVAEH GOLDBERG) Blood Pressure Mean: 114 Progress Note : Time: 12:15 Progress Note Patient seen and evaluated, will obtain labs and discuss options in care with his niece and nephew. They would like him placed at the [facility]. Referral has been placed, labs will be faxed when available. 1300 patient has been cooperative and remained in bed. He has had no periods of confusion or agitation. He is requesting discharge to home. 1400 [facility] reports no beds available at this time and an extensive waiting list. This was discussed with the patient and his niece. We will consider other options. Patient eating lunch no complaints. 1500 consult placed with [facility], no beds available for transfer for at this time. 1530 spoke to [facility], they do have beds available but it would be tomorrow before they could accept him. 1600 spoke with patient and his nephew on speaker phone. Agreeable with plan for d/c to home, he has caregiver available for tonight and then they will work with [facility] for admission there tomorrow 1700 Awaiting taxi for transportation home. Nephew has pre-paid for the taxi. (NEVAEH GOLDBERG) Departure Impression Primary Impression: History of dementia Additional Impression: At high risk for elopement Disposition: 01 HOME, SELF-CARE Condition: Stable Departure-Patient Inst. Decision time for Depature: 16:00 (NEVAEH GOLDBERG) Referrals: AMERICA DARNELL DO (PCP/Family) Primary Care Physician Patient Instructions: Dementia (DC), Preventing Falls in the Older Adult Add. Discharge Instructions: Call [facility] [phone], to arrange admission tomorrow. Have family or caregiver stay with him tonight and tomorrow, until he can be admitted to the residential. Continue home medications. Activity as tolerated. All discharge instructions reviewed with patient and/or family. Voiced understanding. ATTENDING PHYSICIAN NOTE: I was physically present as attending physician in the emergency department during the care of this patient, but I was not directly involved in the decision making or delivery of care for this patient. (JUJU CORTES MD) NEVAEH GOLDBERG Dec 10, 2020 13:39 JUJU CORTES MD Dec 11, 2020 12:05
[2020-12-10 14:05] LABS: BASOPHILS # (AUTO) 0.1 10^3/uL (0.0-0.1); BASOPHILS % (AUTO) 1 % (0-10); EOSINOPHILS # (AUTO) 0.1 10^3/uL (0.0-0.3); EOSINOPHILS % (AUTO) 1 % (0-10); HEMATOCRIT 44 % (40-54); HEMOGLOBIN 15.2 g/dL (13.3-17.7); LYMPHOCYTES # (AUTO) 1.4 10^3/uL (1.0-4.0); LYMPHOCYTES % (AUTO) 23 % (12-44); MEAN CORPUSCULAR HEMOGLOBIN 33 pg (25-34); MEAN CORPUSCULAR HGB CONC 35 g/dL (32-36); MEAN CORPUSCULAR VOLUME 94 fL (80-99); MEAN PLATELET VOLUME 10.6 fL (9.0-12.2); MONOCYTES # (AUTO) 0.9 10^3/uL (0.0-1.0); MONOCYTES % (AUTO) 15 % (0-12); NEUTROPHILS # (AUTO) 3.5 10^3/uL (1.8-7.8); NEUTROPHILS % (AUTO) 59 % (42-75); PLATELET COUNT 166 10^3/uL (130-400); WHITE BLOOD COUNT 5.9 10^3/uL (4.3-11.0)
[2020-12-10 14:06] LABS: ALBUMIN 3.3 GM/DL (3.2-4.5)
[2020-12-10 14:07] LABS: BILIRUBIN,URINE NEGATIVE (NEGATIVE); CLARITY,URINE CLEAR; COLOR,URINE YELLOW; GLUCOSE, URINE (UA) NEGATIVE (NEGATIVE); KETONES,URINE NEGATIVE (NEGATIVE); LEUKOCYTE ESTERASE ,URINE NEGATIVE (NEGATIVE); NITRITE,URINE NEGATIVE (NEGATIVE); PH,URINE 6.5 (5-9); PROTEIN,URINE NEGATIVE (NEGATIVE)
[2020-12-10 14:07] LABS: POTASSIUM 3.7 MMOL/L (3.6-5.0)
[2020-12-10 14:08] LABS: CALCIUM 8.3 MG/DL (8.5-10.1)
[2020-12-10 14:09] LABS: TOTAL PROTEIN 6.6 GM/DL (6.4-8.2)
[2020-12-10 14:11] LABS: BILIRUBIN,TOTAL 1.6 MG/DL (0.1-1.0)
[2020-12-10 14:13] LABS: CREATININE SERUM 1.3 MG/DL (0.60-1.30)
[2020-12-10 14:15] LABS: BACTERIA,URINE NEGATIVE /HPF; SQUAMOUS EPITHELIAL CELL,UR 0-2 /HPF
[2020-12-10 14:19] LABS: AMPHETAMINE SCREEN, URINE NEGATIVE (NEGATIVE); BARBITURATE SCREEN URINE NEGATIVE (NEGATIVE); BENZODIAZEPINES SCREEN URINE NEGATIVE (NEGATIVE); CANNABINOID SCREEN, URINE NEGATIVE (NEGATIVE); COCAINE SCREEN URINE NEGATIVE (NEGATIVE); METHADONE STAT NEGATIVE (NEGATIVE); METHAMPHETAMINE SCREEN URINE S NEGATIVE (NEGATIVE); OPIATE SCREEN URINE NEGATIVE (NEGATIVE); OXYCODONE STAT NEGATIVE (NEGATIVE); PROPOXYPHENE STAT NEGATIVE (NEGATIVE); TRICYCLIC ANTIDEPRESSANTS SCRE NEGATIVE (NEGATIVE)
[2020-12-10 18:12] VITALS: BP 130/72
== END 2020-12-10 17:38 | disposition home or self-care (01) ==
LOC: EDUNIT# 11:42 → ER 11:44
DX: F03.90 Unspecified dementia, unspecified severity, without behavioral disturbance, psychotic disturbance, mood disturbance, and anxiety (principal); I10 Essential (primary) hypertension; I48.91 Unspecified atrial fibrillation; Z91.89 Other specified personal risk factors, not elsewhere classified; Z79.01 Long term (current) use of anticoagulants; Z79.899 Other long term (current) drug therapy
CPT/HCPCS: 80053; 80306; 81000; 85025; 99284; G0480; 36415; 80320

== ENCOUNTER 2020-12-16 04:51 | Emergency (ER) | payer MEDICARE, OTHER ==
[~2020-12-16] VITALS: Ht 177.8 cm; Wt 91.0 kg
[2020-12-16] MEDS ORDERED: TRANEXAMIC ACID 100 MG/ML 10 ML INJECTION ONE (05:15)
[2020-12-16] MEDS ORDERED: OXYMETAZOLINE (AFRIN) 0.05% NA 30 ML BTL ONE (05:16)
[2020-12-16 05:23] LABS: BASOPHILS # (AUTO) 0.1 10^3/uL (0.0-0.1); BASOPHILS % (AUTO) 2 % (0-10); EOSINOPHILS # (AUTO) 0.2 10^3/uL (0.0-0.3); EOSINOPHILS % (AUTO) 3 % (0-10); HEMATOCRIT 39 % (40-54); HEMOGLOBIN 13.9 g/dL (13.3-17.7); LYMPHOCYTES # (AUTO) 1.3 10^3/uL (1.0-4.0); LYMPHOCYTES % (AUTO) 24 % (12-44); MEAN CORPUSCULAR HEMOGLOBIN 33 pg (25-34); MEAN CORPUSCULAR HGB CONC 35 g/dL (32-36); MEAN CORPUSCULAR VOLUME 93 fL (80-99); MEAN PLATELET VOLUME 9.8 fL (9.0-12.2); MONOCYTES # (AUTO) 0.7 10^3/uL (0.0-1.0); MONOCYTES % (AUTO) 13 % (0-12); NEUTROPHILS # (AUTO) 3.3 10^3/uL (1.8-7.8); NEUTROPHILS % (AUTO) 59 % (42-75); PLATELET COUNT 181 10^3/uL (130-400); WHITE BLOOD COUNT 5.5 10^3/uL (4.3-11.0)
[2020-12-16 05:35] LABS: INR 1.1 (0.8-1.4)
--- NOTE | 2020-12-16 05:45 | ED EENT ---
History of Present Illness General Chief Complaint: Nasal Problems Stated Complaint: NOSE BLEED Nursing Triage Note: PT ARRIVES TO ER BY [facility] WITH C/O NOSE BLEED THAT HE THINKS STARTED AROUND 0130 THIS MORNING. PT STATES THAT NO TRAUMA OCCURED TO MAKE IT BLEED. Allergies and Home Medications Allergies Coded Allergies: No Known Drug Allergies (Unverified , 08/10/19) Patient Home Medication List Acetaminophen (Tylenol) 325 Mg Tablet, 650 MG PO Q8H PRN for PAIN-MILD (1-4), (Reported) Entered as Reported by: CHELSI KINCAID on 01/15/20 1038 Amlodipine Besylate (Amlodipine Besylate) 5 Mg Tablet, 5 MG PO DAILY, (Reported) Entered as Reported by: STEPHON RIOS on 08/10/19356 Apixaban (Eliquis) 5 Mg Tablet, 5 MG PO BID, (Reported) Entered as Reported by: STEPHON RIOS on 08/10/19356 Digoxin (Digoxin) 125 Mcg Tablet, 125 MCG PO DAILY, (Reported) Entered as Reported by: STEPHON RIOS on 08/10/19356 Diltiazem HCl (Diltiazem HCl) 60 Mg Tablet, 60 MG PO BID, (Reported) Entered as Reported by: CHELSI KINCAID on 01/15/20 1038 Finasteride (Finasteride) 5 Mg Tablet, 5 MG PO 1200, (Reported) Entered as Reported by: STEPHON RIOS on 08/10/19356 Gabapentin (Neurontin) 300 Mg Capsule, 300 MG PO TID, (Reported) Entered as Reported by: STEPHON RIOS on 08/10/19356 Metoprolol Tartrate (Metoprolol Tartrate) 50 Mg Tablet, 50 MG PO BID, (Reported) Entered as Reported by: STEPHON RIOS on 08/10/19356 Multivitamin (Multivitamin) 1 Each Tablet, 1 EACH PO DAILY, (Reported) Entered as Reported by: CHELSI KINCAID on 08/10/191509 [place]-3/Dha/Epa/Fish Oil (Fish Oil 1,000 mg Softgel) 1 Each Capsule, 1 EACH PO DAILY, (Reported) Entered as Reported by: CHELSI KINCAID on 08/10/19 151 Pantoprazole Sodium (Pantoprazole Sodium) 40 Mg Tablet.dr, 40 MG PO DAILY, (Reported) Entered as Reported by: CHELSI KINCAID on 01/15/20 1038 Tamsulosin HCl (Flomax) 0.4 Mg Cap, 0.4 MG PO DAILY, (Reported) Entered as Reported by: STEPHON RIOS on 08/10/19 0357 Venlafaxine HCl (Venlafaxine HCl ER) 75 Mg Cap.er.24h, 150 MG PO DAILY, (Reported) Entered as Reported by: STEPHON RIOS on 08/10/19 0357 [Folic Acid] , 1 MG PO DAILY, (Reported) Entered as Reported by: CHELSI KINCAID on 01/15/20 1038 Past Xbihqar-Lcvxrq-Wgsfms Hx Immunizations Up To Date Tetanus Booster (TDap): Less than 5yrs PED Vaccines UTD: Yes Past Medical History Surgeries: Yes (BACK SURGERY-DR. SMITH) Orthopedic, Tonsillectomy Respiratory: No Cardiac: Yes Atrial Fibrillation, Hypertension Neurological: No (? NEUROPATHY OR RESTLESS LEGS ? ) Genitourinary: Yes (PROSTATE PROBLEMS PER MEDICATION LIST-FLOMAX AND FINASTERIDE) Prostate Problems, Bladder Infection Gastrointestinal: No Musculoskeletal: Yes (S/P BACK SURGERY WITH HARDWARE IN PLACE) Chronic Back Pain Endocrine: No HEENT: No Cancer: No Psychosocial: Yes (ON EFFEXOR--UNKNOWN DX ) Integumentary: No Blood Disorders: No Family Medical History SOCIAL HISTORY: -DRINKS "AT LEAST 2 HIGHBALLS EVERY NIGHT" -DENIES DRUG USE -SMOKED A PIPE-STATES HE QUIT IN 1974 Physical Exam Vital Signs Vital Signs - First Documented 12/16/20 05:01 Temp 36.4 Pulse 97 Resp 18 B/P (MAP) 119/87 (98) Pulse Ox 97 O2 Delivery Room Air Height, Weight, BMI Height: '" Weight: lbs. oz. kg; 28.00 BMI Method: Progress/Results/Core Measures Results/Orders Lab Results Laboratory Tests Test 12/16/20 05:11 Range/Units White Blood Count 5.5 4.3-11.0 10^3/uL Red Blood Count 4.24 L 4.30-5.52 10^6/uL Hemoglobin 13.9 13.3-17.7 g/dL Hematocrit 39 L 40-54 % Mean Corpuscular Volume 93 80-99 fL Mean Corpuscular Hemoglobin 33 25-34 pg Mean Corpuscular Hemoglobin Concent 35 32-36 g/dL Red Cell Distribution Width 12.1 10.0-14.5 % Platelet Count 181 130-400 10^3/uL Mean Platelet Volume 9.8 9.0-12.2 fL Immature Granulocyte % (Auto) 0 % Neutrophils (%) (Auto) 59 42-75 % Lymphocytes (%) (Auto) 24 12-44 % Monocytes (%) (Auto) 13 H 0-12 % Eosinophils (%) (Auto) 3 0-10 % Basophils (%) (Auto) 2 0-10 % Neutrophils # (Auto) 3.3 1.8-7.8 10^3/uL Lymphocytes # (Auto) 1.3 1.0-4.0 10^3/uL Monocytes # (Auto) 0.7 0.0-1.0 10^3/uL Eosinophils # (Auto) 0.2 0.0-0.3 10^3/uL Basophils # (Auto) 0.1 0.0-0.1 10^3/uL Immature Granulocyte # (Auto) 0.0 0.0-0.1 10^3/uL Prothrombin Time 15.0 H 12.2-14.7 SEC INR Comment 1.1 0.8-1.4 Activated Partial Thromboplast Time 41 H 24-35 SEC Serum Alcohol 99 H <10 MG/DL My Orders Orders - LUCIANO KOO DO Alcohol (12/16/20 05:09) Cbc With Automated Diff (12/16/20 05:09) Protime With Inr (12/16/20 05:09) Partial Thromboplastin Time (12/16/20 05:09) Oxymetazoline 0.05% Nasal [place] (Afrin 0. (12/16/20 09:00) Tranexamic Acid Injection (Cyklokapron I (12/16/20 05:15) Oxymetazoline 0.05% Nasal [place] (Afrin 0. (12/16/20 05:16) Drug Screen Stat (Urine) (12/16/20 05:43) Vital Signs/I&O 12/16/20 05:01 Temp 36.4 Pulse 97 Resp 18 B/P (MAP) 119/87 (98) Pulse Ox 97 O2 Delivery Room Air Blood Pressure Mean: 98 Departure Impression Primary Impression: Epistaxis Additional Impression: Alcohol intoxication Disposition: 01 HOME, SELF-CARE Condition: Stable Departure-Patient Inst. Decision time for Depature: 05:44 Referrals: AMERICA DARNELL DO (PCP/Family) Primary Care Physician Patient Instructions: Nosebleeds (DC), Alcohol Use Disorder ED Add. Discharge Instructions: DO NOT RUB OR PICK AT NOSE NO ALCOHOL CONTINUE YOUR REGULAR MEDICATIONS PRESCRIBED FOLLOW UP WITH DR. DARNELL IN 1-2 DAYS FOR FURTHER CARE, RETURN TO ER IF SYMPTOMS RETURN All discharge instructions reviewed with patient and/or family. Voiced understanding. LUCIANO KOO DO Dec 16, 2020 05:45
[2020-12-16 05:59] LABS: AMPHETAMINE SCREEN, URINE NEGATIVE (NEGATIVE); BARBITURATE SCREEN URINE NEGATIVE (NEGATIVE); BENZODIAZEPINES SCREEN URINE NEGATIVE (NEGATIVE); CANNABINOID SCREEN, URINE NEGATIVE (NEGATIVE); COCAINE SCREEN URINE NEGATIVE (NEGATIVE); METHADONE STAT NEGATIVE (NEGATIVE); METHAMPHETAMINE SCREEN URINE S NEGATIVE (NEGATIVE); OPIATE SCREEN URINE NEGATIVE (NEGATIVE); OXYCODONE STAT NEGATIVE (NEGATIVE); PROPOXYPHENE STAT NEGATIVE (NEGATIVE); TRICYCLIC ANTIDEPRESSANTS SCRE NEGATIVE (NEGATIVE)
[2020-12-16 06:31] VITALS: BP 119/87
[2020-12-16] MEDS ORDERED: OXYMETAZOLINE (AFRIN) 0.05% NA 30 ML BTL SCH (09:00)
== END 2020-12-16 07:07 | disposition home or self-care (01) ==
LOC: EDUNIT# 04:51 → ER 04:52
DX: R04.0 Epistaxis (principal); F10.129 Alcohol abuse with intoxication, unspecified; I10 Essential (primary) hypertension; I48.91 Unspecified atrial fibrillation; Z79.01 Long term (current) use of anticoagulants; Z79.899 Other long term (current) drug therapy
CPT/HCPCS: 80306; 85025; 85610; 85730; 99283; G0480; 36415; 80320